=== PATIENT | male | born 1945 | race American Indian/Alaskan Native ===

== ENCOUNTER 2016-11-30 17:52 | Emergency (ER) | payer MEDICARE ==
[2016-11-30] MEDS ORDERED: NACL 0.9% 1000 ML 1,000 ML IV ONE (18:53)
[2016-11-30] MEDS ORDERED: TORADOL IV ONE (18:53)
[2016-11-30 19:58] LABS: Basophils % (Auto) 0.9 % (0.0-1.8); Eosinophils % (Auto) 0.7 % (0.0-4.3); Hematocrit 47.6 % (35.5-45.6); Hemoglobin 15.8 gm/dl (11.8-15.2); Mean Corpuscular HGB Conc 33 % (32-34); Mean Corpuscular Hemoglobin 29 pg (28-32); Mean Corpuscular Volume 87 fl (84-94); Platelet Count 256 K/mm3 (140-440); Red Blood Count 5.45 M/mm3 (3.65-5.03); White Blood Count 6.2 K/mm3 (4.5-11.0)
[2016-11-30 20:08] LABS: INR 1.07 (0.87-1.13)
[2016-11-30 20:09] LABS: Partial Thromboplastin Time 40.1 Sec. (24.2-36.6)
[2016-11-30 20:17] LABS: Creatine Kinase MB 1.3 ng/mL (0.0-4.0)
[2016-11-30 20:18] LABS: Alanine Aminotransferase 21 units/L (7-56); Albumin 2.4 g/dL (3.9-5); Albumin/Globulin Ratio 0.8 %; Alkaline Phosphatase 49 units/L (35-129); Anion Gap 15 mmol/L; BUN/Creatinine Ratio 16.66; Bilirubin,Total 0.3 mg/dL (0.1-1.2); Blood Urea Nitrogen 15 mg/dL (9-20); Calcium 8.7 mg/dL (8.4-10.2); Carbon Dioxide 28 mmol/L (22-30); Chloride 106.3 mmol/L (98-107); Creatine Kinase 49 units/L (55-170); Glucose 88 mg/dL (75-100); Lipase 32 units/L (13-60); Potassium 4.9 mmol/L (3.6-5.0); Sodium 144 mmol/L (137-145); Total Protein 5.3 g/dL (6.3-8.2)
--- NOTE | 2016-11-30 20:40 | Emergency Department Report ---
ED Chest Pain HPI - General Chief Complaint: Chest Pain Stated Complaint: CHEST PAIN Time Seen by Provider: 11/30/16 18:49 Source: patient Mode of arrival: Stretcher Limitations: No Limitations - History of Present Illness MD Complaint: chest pain, other (headache / abdominal pain) -: Gradual Onset: during rest Pain Location: substernal Pain Radiation: none Severity: moderate Severity scale (0 -10): 4 Quality: tightness, aching, heaviness Consistency: intermittent Improves With: nothing Worsens With: nothing Other Symptoms: denies: cough, fever, syncope, rash, acid taste in mouth, leg swelling, palpitations, burping Treatments Prior to Arrival: none - Related Data Home Medications Medication Instructions Recorded Confirmed Last Taken Carvedilol [Coreg] 6.25 mg PO BID 11/30/16 11/30/16 Unknown Previous Rx's Medication Instructions Recorded Last Taken Type Aspirin EC [Aspirin Enteric Coated 81 mg PO QDAY #30 tablet 07/18/16 Unknown Rx TAB] Pantoprazole [Protonix TAB] 20 mg PO QDAY #30 tablet. 07/18/16 Unknown Rx Amoxicillin/K Clav Tab [Augmentin 1 tab PO Q12HR #14 tab 08/05/16 Unknown Rx 875 mg] HYDROcodone/APAP 5-325 [[place] 1 each PO Q6HR PRN #20 tablet 08/05/16 Unknown Rx 5/325] Allergies Allergy/AdvReac Type Severity Reaction Status Date / Time No Known Allergies Allergy Verified 11/30/16 19:20 DEENA score - Deena Score Age > 65: (1) Yes Aspirin use within the Past 7 Days: (0) No 3 or more CAD Risk Factors: (0) No 2 or more Angina events in past 24 hrs: (0) No Known CAD with more than 50% Stenosis: (0) No Elevated Cardiac Markers: (0) No ST Deviation Greater than 0.5mm: (0) No DEENA Score: 1 ED Review of Systems ROS: Stated complaint: CHEST PAIN Other details as noted in HPI Constitutional: denies: chills, fever Eyes: denies: eye pain, eye discharge, vision change ENT: denies: ear pain, throat pain Respiratory: denies: cough, shortness of breath, wheezing Cardiovascular: denies: chest pain, palpitations Endocrine: no symptoms reported Gastrointestinal: denies: abdominal pain, nausea, diarrhea Genitourinary: denies: urgency, dysuria Musculoskeletal: denies: back pain, joint swelling, arthralgia Skin: denies: rash, lesions Neurological: denies: headache, weakness, paresthesias Psychiatric: denies: anxiety, depression Hematological/Lymphatic: denies: easy bleeding, easy bruising ED Past Medical Hx - Past Medical History Hx Hypertension: Yes Hx Diabetes: Yes Additional medical history: chronic back pain - Surgical History Additional Surgical History: back surgery - Social History Smoking Status: Never Smoker Substance Use Type: None - Medications Home Medications: Home Medications Medication Instructions Recorded Confirmed Last Taken Type Aspirin EC [Aspirin Enteric Coated 81 mg PO QDAY #30 tablet 07/18/16 11/30/16 Unknown Rx TAB] Pantoprazole [Protonix TAB] 20 mg PO QDAY #30 tablet. 07/18/16 11/30/16 Unknown Rx Amoxicillin/K Clav Tab [Augmentin 1 tab PO Q12HR #14 tab 08/05/16 11/30/16 Unknown Rx 875 mg] HYDROcodone/APAP 5-325 [[place] 1 each PO Q6HR PRN #20 tablet 08/05/16 11/30/16 Unknown Rx 5/325] Carvedilol [Coreg] 6.25 mg PO BID 11/30/16 11/30/16 Unknown History ED Physical Exam - General Limitations: No Limitations General appearance: alert, in no apparent distress - Head Head exam: Present: atraumatic, normocephalic - Eye Eye exam: Present: normal appearance - ENT ENT exam: Present: mucous membranes moist - Neck Neck exam: Present: normal inspection - Respiratory Respiratory exam: Present: normal lung sounds bilaterally. Absent: respiratory distress - Cardiovascular Cardiovascular Exam: Present: regular rate, normal rhythm. Absent: systolic murmur, diastolic murmur, rubs, gallop - GI/Abdominal GI/Abdominal exam: Present: soft, normal bowel sounds - Rectal Rectal exam: Present: deferred - Extremities Exam Extremities exam: Present: normal inspection - Back Exam Back exam: Present: normal inspection - Neurological Exam Neurological exam: Present: alert, oriented X3 - Psychiatric Psychiatric exam: Present: normal affect, normal mood - Skin Skin exam: Present: warm, dry, intact, normal color. Absent: rash ED Course Vital Signs 11/30/16 11/30/16 19:03 21:03 Pulse Rate 81 81 Respiratory 16 16 Rate Blood Pressure 143/91 Blood Pressure 152/81 [Right] O2 Sat by Pulse 97 99 Oximetry ED Medical Decision Making - Lab Data Result diagrams: 11/30/16 19:41 11/30/16 19:41 Critical care attestation.: If time is entered above; I have spent that time in minutes in the direct care of this critically ill patient, excluding procedure time. ED Disposition Clinical Impression: Chest pain, Hypertension Disposition: DISCHARGED TO HOME OR SELFCARE Is pt being admited?: No Does the pt Need Aspirin: No Condition: Good Instructions: Chest Pain (ED), Hypertension (ED), Costochondritis (ED) Referrals: PRIMARY CARE, [Primary Care Provider] - 3-5 Days Time of Disposition: 23:12
[2016-11-30 20:54] LABS: Creatine Kinase MB 1.2 ng/mL (0.0-4.0)
[2016-11-30 21:05] VITALS: BP 152/81
--- NOTE | 2016-11-30 21:50 | Cat Scan Report ---
FINAL REPORT PROCEDURE: CT ANGIO CHEST TECHNIQUE: Computerized axial tomographic angiography of the chest and pulmonary arteries was performed after the IV injection of iodinated nonionic contrast. The image data was postprocessed using maximum intensity projection (MIP) and 2-dimensional multiplanar reformatted (MPR) techniques. The examination is specifically tailored to the evaluation of the pulmonary arteries per clinical request. HISTORY: Chest pain. Attention for pulmonary embolus. Short of breath 786.09, chest pain 786.50 COMPARISON: There no prior CT scans of the chest to compare FINDINGS: Heart and pericardium: Normal. Thoracic aorta: Normal. Pulmonary vasculature: Normal. No pulmonary emboli. Lymph nodes: There are few nonspecific less than 1 centimeter mediastinal nodes. There is no evidence of enlarged thoracic lymph node.. Lungs: Lungs demonstrate mild atelectasis in the posterior lung bases. There are changes of mild COPD. There is no focal infiltrate or pulmonary edema. Pleural space: No effusion, thickening, or pneumothorax. Musculoskeletal structures: Mild bony degenerative change throughout the spine. There is mild tilt of the thoracic spine to the right. This could be due to patient positioning.. Upper abdominal structures: Limited visualized structures of the very upper abdomen seen on the lower part of this chest CT scan show no distinct abnormality. There is a tiny 2 millimeter nonspecific calcification in the right liver. This is likely incidental.. IMPRESSION: 1. There is no CT evidence of pulmonary embolus. 2. There is no CT evidence of thoracic aortic dissection. 3. Lungs show mild dependent atelectasis in the posterior lung bases. There are also changes of mild COPD. 4. Mild bony degenerative change.
--- NOTE | 2016-12-01 10:29 | XRay Report ---
AP CHEST : 11/30/16 17:52:00 CLINICAL: Chest pain COMPARISON:07/16/16 FINDINGS: Normal heart and pulmonary vessels. The lungs are mildly hyperexpanded and hyperlucent. No airspace disease or pleural effusion. Degenerative changes in the spine and shoulders. IMPRESSION: COPD and no acute change.
== END 2016-11-30 23:26 | disposition home or self-care (01) ==
LOC: ED 17:52
DX: R07.9 Chest pain, unspecified (principal); I10 Essential (primary) hypertension; E11.9 Type 2 diabetes mellitus without complications; G89.29 Other chronic pain; Z79.82 Long term (current) use of aspirin
CPT/HCPCS: 36415; 71010; 71275; 80053; 82550; 82553; 83690; 84484; 85025; 85610; 85730; 93005; 93010; 96361; 96374; 99285; J1885; J7030; Q9967

== ENCOUNTER 2017-03-20 10:53 | Emergency (ER) | payer MEDICARE ==
[2017-03-20 11:37] LABS: Basophils % (Auto) 0.3 % (0.0-1.8); Eosinophils % (Auto) 0.1 % (0.0-4.3); Hematocrit 46.8 % (35.5-45.6); Hemoglobin 15.5 gm/dl (11.8-15.2); Mean Corpuscular HGB Conc 33 % (32-34); Mean Corpuscular Hemoglobin 29 pg (28-32); Mean Corpuscular Volume 87 fl (84-94); Platelet Count 288 K/mm3 (140-440); Red Blood Count 5.35 M/mm3 (3.65-5.03); Red Cell Distribution Width 14.5 % (13.2-15.2); White Blood Count 9.3 K/mm3 (4.5-11.0)
[2017-03-20 11:48] LABS: INR 1.1 (0.87-1.13)
[2017-03-20 11:54] LABS: Anion Gap 14 mmol/L; BUN/Creatinine Ratio 14.28; Blood Urea Nitrogen 10 mg/dL (9-20); Calcium 9.2 mg/dL (8.4-10.2); Carbon Dioxide 30 mmol/L (22-30); Chloride 98.9 mmol/L (98-107); Glucose 113 mg/dL (75-100); Potassium 3.8 mmol/L (3.6-5.0); Sodium 139 mmol/L (137-145)
--- NOTE | 2017-03-20 14:18 | XRay Report ---
CHEST XRAY, 2 VIEWS: History: Chest pain. Findings: There is mild diffuse interstitial coarsening. The lungs are hyperexpanded but clear. No infiltrate, pleural fluid or pneumothorax is detected. The cardiac silhouette and pulmonary vasculature are within normal limits for technique. The bony thorax is unremarkable. IMPRESSION: Changes consistent with mild COPD. No acute cardiopulmonary process.
[2017-03-20] MEDS ORDERED: NORCO 5/325 PO ONE (16:03)
[2017-03-20 16:11] VITALS: BP 163/89
--- NOTE | 2017-03-20 16:19 | Emergency Department Report ---
ED General Adult HPI - General Chief complaint: Neck Pain/Injury Stated complaint: neck pain Time Seen by Provider: 03/20/17 16:02 Source: patient Mode of arrival: Ambulatory Limitations: No Limitations - History of Present Illness Initial comments: Patient is a 16-year-old male past medical history of high blood pressure who presents with left-sided neck pain that occurred this morning. Patient states that this pain occurred while he was getting out from that the pain is a 5 out 10 to sore type pain turning his neck makes the pain worse and nothing makes the pain better. The pain does not radiate and is not associated with any symptoms. Patient has no chest pain he says he has some pain at the base of his neck "close to my chest and everone is telling me I have chest pain but I have never had chest pain." Patient denies having any nausea or vomiting. He states that he's never been diagnosed a heart attack or stroke. Severity scale (0 -10): 7 - Related Data Home Medications Medication Instructions Recorded Confirmed Last Taken Carvedilol [Coreg] 6.25 mg PO BID 11/30/16 11/30/16 Unknown Previous Rx's Medication Instructions Recorded Last Taken Type Aspirin EC [Aspirin Enteric Coated 81 mg PO QDAY #30 tablet 07/18/16 Unknown Rx TAB] Pantoprazole [Protonix TAB] 20 mg PO QDAY #30 tablet. 07/18/16 Unknown Rx Amoxicillin/K Clav Tab [Augmentin 1 tab PO Q12HR #14 tab 08/05/16 Unknown Rx 875 mg] HYDROcodone/APAP 5-325 [[place] 1 each PO Q6HR PRN #20 tablet 08/05/16 Unknown Rx 5/325] Acetaminophen [Acetaminophen TAB] 500 mg PO Q6HR #30 tablet 03/20/17 Unknown Rx methOCARBAMOL [Robaxin TAB] 500 mg PO Q6H PRN #30 tablet 03/20/17 Unknown Rx Allergies Allergy/AdvReac Type Severity Reaction Status Date / Time No Known Allergies Allergy Verified 03/20/17 11:19 ED Review of Systems ROS: Stated complaint: CHEST PAIN Other details as noted in HPI Constitutional: denies: chills, fever Eyes: denies: eye pain, eye discharge, vision change ENT: denies: ear pain, throat pain Respiratory: denies: cough, shortness of breath, wheezing Cardiovascular: denies: chest pain, palpitations Endocrine: no symptoms reported Gastrointestinal: denies: abdominal pain, nausea, diarrhea Genitourinary: denies: urgency, dysuria Musculoskeletal: other (neck pain) Skin: denies: rash, lesions Neurological: denies: headache, weakness, paresthesias Psychiatric: denies: anxiety, depression Hematological/Lymphatic: denies: easy bleeding, easy bruising ED Past Medical Hx - Past Medical History Hx Hypertension: Yes Hx Diabetes: Yes Hx GERD: Yes Additional medical history: chronic back pain - Surgical History Additional Surgical History: back surgery. NECK SURGERY - Social History Smoking Status: Light Tobacco Smoker Substance Use Type: Alcohol, Marijuana - Medications Home Medications: Home Medications Medication Instructions Recorded Confirmed Last Taken Type Aspirin EC [Aspirin Enteric Coated 81 mg PO QDAY #30 tablet 07/18/16 11/30/16 Unknown Rx TAB] Pantoprazole [Protonix TAB] 20 mg PO QDAY #30 tablet. 07/18/16 11/30/16 Unknown Rx Amoxicillin/K Clav Tab [Augmentin 1 tab PO Q12HR #14 tab 08/05/16 11/30/16 Unknown Rx 875 mg] HYDROcodone/APAP 5-325 [[place] 1 each PO Q6HR PRN #20 tablet 08/05/16 11/30/16 Unknown Rx 5/325] Carvedilol [Coreg] 6.25 mg PO BID 11/30/16 11/30/16 Unknown History Acetaminophen [Acetaminophen TAB] 500 mg PO Q6HR #30 tablet 03/20/17 Unknown Rx methOCARBAMOL [Robaxin TAB] 500 mg PO Q6H PRN #30 tablet 03/20/17 Unknown Rx ED Physical Exam - General Limitations: No Limitations General appearance: alert - Head Head exam: Present: atraumatic, normocephalic - Eye Eye exam: Present: normal appearance - ENT ENT exam: Present: mucous membranes moist - Neck Neck exam: Present: other (paraspinal tenderness no midline tenderness patient has Full ROM of his neck. ) - Respiratory Respiratory exam: Present: normal lung sounds bilaterally. Absent: respiratory distress - Cardiovascular Cardiovascular Exam: Present: regular rate - GI/Abdominal GI/Abdominal exam: Present: soft, normal bowel sounds - Rectal Rectal exam: Present: deferred - Extremities Exam Extremities exam: Present: normal inspection - Back Exam Back exam: Present: normal inspection - Neurological Exam Neurological exam: Present: alert, oriented X3 - Psychiatric Psychiatric exam: Present: normal affect, normal mood - Skin Skin exam: Present: warm, dry, intact, normal color. Absent: rash ED Course Vital Signs 03/20/17 03/20/17 11:10 15:54 Temperature 97.8 F 98.7 F Pulse Rate 71 70 Respiratory 20 18 Rate Blood Pressure 157/97 Blood Pressure 163/89 [Left] O2 Sat by Pulse 97 98 Oximetry - Reevaluation(s) Reevaluation #1: 03/20/17 16:21 Patient states he is feeling good and tonight he wants to go home. He has no chest pain discussed the patient about return precautions to the ED. ED Medical Decision Making - Lab Data Result diagrams: 03/20/17 11:25 03/20/17 11:25 Laboratory Results - last 24 hr 03/20/17 03/20/17 03/20/17 11:25 11:25 11:25 WBC 9.3 RBC 5.35 H Hgb 15.5 H Hct 46.8 H MCV 87 MCH 29 MCHC 33 RDW 14.5 Plt Count 288 Lymph % (Auto) 13.0 L [place] % (Auto) 10.3 H Eos % (Auto) 0.1 Baso % (Auto) 0.3 Lymph # 1.2 [place] # 1.0 H Eos # 0.0 Baso # 0.0 Seg Neutrophils % 76.3 H Seg Neutrophils # 7.1 PT 14.1 INR 1.10 Sodium 139 Potassium 3.8 Chloride 98.9 Carbon Dioxide 30 Anion Gap 14 BUN 10 Creatinine 0.7 L Estimated GFR > 60 BUN/Creatinine Ratio 14.28 Glucose 113 H Calcium 9.2 Troponin T < 0.010 - EKG Data -: EKG Interpreted by Me - EKG Data 03/20/17 16:21 EKG shows normal sinus rhythm possible left atrial enlargement present no ST segment elevations noted T-wave inversions. - Radiology Data Radiology results: image reviewed Chest x-ray shows no acute pulmonary disease. - Medical Decision Making Chief medical diagnosis: Torticollis Differential medical diagnosis: Cervical sprain, cervical strain, pulled chest wall muscle. We'll get labs as baseline, EKG, chest x-ray analgesic medication and will send patient home. 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 Critical care attestation.: If time is entered above; I have spent that time in minutes in the direct care of this critically ill patient, excluding procedure time. ED Disposition Clinical Impression: Cervicalgia Disposition: TO HOME OR SELFCARE Is pt being admited?: No Does the pt Need Aspirin: No Condition: Stable Instructions: Cervical Sprain (ED) Prescriptions: Acetaminophen [Acetaminophen TAB] 500 mg PO Q6HR #30 tablet methOCARBAMOL [Robaxin TAB] 500 mg PO Q6H PRN #30 tablet PRN Reason: Spasms Referrals: PRIMARY CARE, [Primary Care Provider] - 3-5 Days Time of Disposition: 16:26
== END 2017-03-20 16:37 | disposition home or self-care (01) ==
LOC: ED 10:53
DX: M54.2 Cervicalgia (principal); E11.9 Type 2 diabetes mellitus without complications; K21.9 Gastro-esophageal reflux disease without esophagitis; I10 Essential (primary) hypertension; G89.29 Other chronic pain; F17.200 Nicotine dependence, unspecified, uncomplicated; F12.10 Cannabis abuse, uncomplicated; Z79.82 Long term (current) use of aspirin; X50.1XXA Overexertion from prolonged static or awkward postures, initial encounter; Y93.89 Activity, other specified; Y99.8 Other external cause status; Y92.89 Other specified places as the place of occurrence of the external cause
CPT/HCPCS: 36415; 71020; 80048; 84484; 85025; 85610; 93005; 93010

== ENCOUNTER 2019-01-07 12:45 | Emergency (ER) | payer MEDICARE ==
--- NOTE | 2019-01-07 12:53 | Emergency Department Report ---
Blank Doc - Documentation Documentation: This is a 73-year-old male that presents right sided paraspinal cervical pain with radiation to right arm. Denies any injuries or trauma. This initial assessment/diagnostic orders/clinical plan/treatment(s) is/are subject to change based on patient's health status, clinical progression and re- assessment by fellow clinical providers in the ED. Further treatment and workup at subsequent clinical providers discretion. Patient/guardians urged not to elope from the ED as their condition may be serious if not clinically assessed and managed. Initial orders include: 1- Patient sent to [facility] for further evaluation and treatment
[2019-01-07 12:57] VITALS: BP 160/78
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
--- NOTE | 2019-01-07 15:32 | XRay Report ---
PROCEDURE: XR SHOULDER 2+V RT HISTORY: fall, pain FINDINGS:. AP views of the right shoulder were acquired in internal and external rotation as well as scapular Y view. No fracture is seen in the right shoulder. There is advanced glenohumeral osteoarthritis. There is sp urring inferior to the lateral clavicle 0.4 cm. IMPRESSION: No fracture is seen in the right shoulder This document is electronically signed by Dwaine Mcbride MD., Jan 07 2019 03:30:20 PM ET
--- NOTE | 2019-01-07 15:33 | XRay Report ---
PROCEDURE: XR SPINE CERVICAL 2-3V HISTORY: fall,NECK PAIN FINDINGS: AP, lateral and open-mouth views of the cervical spine were acquired. No fracture is seen i n the cervical spine. There is anterior endplate remodeling at C3 C4, C4 C5, C6 C7 and C7-T1. The pre vertebral soft tissues are within normal limits. IMPRESSION: No fracture is seen in the cervical spine This document is electronically signed by Dwaine Mcbride MD., Jan 07 2019 03:31:18 PM ET
--- NOTE | 2019-01-07 15:43 | Emergency Department Report ---
ED Fall HPI - General Chief Complaint: Neck Pain/Injury Stated Complaint: FALL/R ARM PAIN Time Seen by Provider: 01/07/19 12:52 Source: patient Mode of arrival: Wheelchair - History of Present Illness Initial Comments: 73 yo M reports trip and fall from standing 2 days ago. Denies LOC. Began having pain to right neck, right shoulder, right chest wall on yesterday. Denies SOB Complaint: fall -: days(s) (2) Fall From: standing When Fall Occurred: # days [employer] (2) Place Fall Occurred: home Loss of Consciousness: none Prolonged Down Time?: no Symptoms Prior to Fall: none Location: neck, chest Location - Extremities: Right: Shoulder Severity: moderate Associated Symptoms: neck pain. denies: numbness, weakness, shortness of breath - Related Data Home Medications Medication Instructions Recorded Confirmed Last Taken Carvedilol [Coreg] 6.25 mg PO BID 11/30/16 11/30/16 Unknown Previous Rx's Medication Instructions Recorded Last Taken Type Aspirin EC 81 mg PO QDAY #30 tablet 07/18/16 Unknown Rx Pantoprazole [Protonix TAB] 20 mg PO QDAY #30 tablet.dr 07/18/16 Unknown Rx Amoxicillin/K Clav Tab [Augmentin 1 tab PO Q12HR #14 tab 08/05/16 Unknown Rx 875 mg] HYDROcodone/APAP 5-325 [[place] 1 each PO Q6HR PRN #20 tablet 08/05/16 Unknown Rx 5/325] Acetaminophen [Acetaminophen TAB] 500 mg PO Q6HR #30 tablet 03/20/17 Unknown Rx methOCARBAMOL [Robaxin TAB] 500 mg PO Q6H PRN #30 tablet 03/20/17 Unknown Rx methOCARBAMOL [Robaxin TAB] 500 mg PO Q8HR PRN #20 tablet 01/07/19 Unknown Rx Allergies Allergy/AdvReac Type Severity Reaction Status Date / Time No Known Allergies Allergy Verified 01/07/19 12:49 ED Review of Systems ROS: Stated complaint: FALL/R ARM PAIN Other details as noted in HPI Comment: All other systems reviewed and negative Respiratory: denies: shortness of breath Gastrointestinal: denies: nausea, vomiting Musculoskeletal: as per HPI Neurological: denies: headache ED Past Medical Hx - Past Medical History Hx Hypertension: Yes Hx Diabetes: Yes Hx GERD: Yes Additional medical history: chronic back pain - Surgical History Additional Surgical History: back surgery. NECK SURGERY - Social History Smoking Status: Current Every Day Smoker Substance Use Type: None - Medications Home Medications: Home Medications Medication Instructions Recorded Confirmed Last Taken Type Aspirin EC 81 mg PO QDAY #30 tablet 07/18/16 11/30/16 Unknown Rx Pantoprazole [Protonix TAB] 20 mg PO QDAY #30 tablet. 07/18/16 11/30/16 Unknown Rx Amoxicillin/K Clav Tab [Augmentin 1 tab PO Q12HR #14 tab 08/05/16 11/30/16 Unknown Rx 875 mg] HYDROcodone/APAP 5-325 [[place] 1 each PO Q6HR PRN #20 tablet 08/05/16 11/30/16 Unknown Rx 5/325] Carvedilol [Coreg] 6.25 mg PO BID 11/30/16 11/30/16 Unknown History Acetaminophen [Acetaminophen TAB] 500 mg PO Q6HR #30 tablet 03/20/17 Unknown Rx methOCARBAMOL [Robaxin TAB] 500 mg PO Q6H PRN #30 tablet 03/20/17 Unknown Rx methOCARBAMOL [Robaxin TAB] 500 mg PO Q8HR PRN #20 tablet 01/07/19 Unknown Rx ED Physical Exam - General Limitations: No Limitations General appearance: alert, in no apparent distress - Head Head exam: Present: atraumatic, normocephalic - Eye Eye exam: Present: normal appearance - ENT ENT exam: Present: mucous membranes moist - Neck Neck exam: Present: tenderness (right lateral) - Respiratory Respiratory exam: Present: normal lung sounds bilaterally. Absent: respiratory distress - Cardiovascular Cardiovascular Exam: Present: regular rate, normal rhythm - GI/Abdominal GI/Abdominal exam: Absent: distended - Extremities Exam Extremities exam: Present: other (tenderness, decreased ROM to right shoulder, no deformity noted) - Neurological Exam Neurological exam: Present: alert, oriented X3. Absent: motor sensory deficit - Psychiatric Psychiatric exam: Present: normal affect, normal mood - Skin Skin exam: Present: warm, dry, intact, normal color ED Course Vital Signs 01/07/19 12:55 Temperature 98.5 F Pulse Rate 79 Respiratory 16 Rate Blood Pressure 160/78 [Left] O2 Sat by Pulse 99 Oximetry ED Medical Decision Making - Radiology Data Radiology results: report reviewed, image reviewed - Differential Diagnosis fracture, sprain Critical care attestation.: If time is entered above; I have spent that time in minutes in the direct care of this critically ill patient, excluding procedure time. ED Disposition Clinical Impression: Fall, Acute cervical myofascial strain, Contusion, chest wall, Sprain of shoulder, right Disposition: TO HOME OR SELFCARE Is pt being admited?: No Condition: Stable Instructions: Muscle Strain (ED) Prescriptions: methOCARBAMOL [Robaxin TAB] 500 mg PO Q8HR PRN #20 tablet PRN Reason: Muscle Spasm Referrals: [facility] [Other] - 3-5 Days Time of Disposition: 15:42
[2019-01-07] MEDS ORDERED: ULTRAM ONE (15:56)
[2019-01-07] MEDS ORDERED: ULTRAM PO ONE (15:58)
== END 2019-01-07 16:00 | disposition home or self-care (01) ==
LOC: ED 12:45
DX: S16.1XXA Strain of muscle, fascia and tendon at neck level, initial encounter (principal); S43.401A Unspecified sprain of right shoulder joint, initial encounter; S20.211A Contusion of right front wall of thorax, initial encounter; I10 Essential (primary) hypertension; E11.9 Type 2 diabetes mellitus without complications; K21.9 Gastro-esophageal reflux disease without esophagitis; G89.29 Other chronic pain; M54.9 Dorsalgia, unspecified; F17.200 Nicotine dependence, unspecified, uncomplicated; Z79.82 Long term (current) use of aspirin; W01.0XXA Fall on same level from slipping, tripping and stumbling without subsequent striking against object, initial encounter; Y93.89 Activity, other specified; Y92.89 Other specified places as the place of occurrence of the external cause; Y99.8 Other external cause status
CPT/HCPCS: 71046; 72040; 99283

== ENCOUNTER 2019-05-17 00:40 | Emergency (ER) | payer MEDICAID, MEDICARE ==
[2019-05-17] MEDS ORDERED: FAMOTIDINE 20 MG/2 ML INJ IV ONE (00:56)
[2019-05-17] MEDS ORDERED: ACETAMINOPHEN 500 MG TAB PO ONE (00:56)
--- NOTE | 2019-05-17 00:57 | Event Note ---
Date: 05/17/19 Medical screening examination: 73-year-old gentleman, presents to the ER with left-sided chest wall pain for 6 days. No endorsement of additional complaints. Patient will be ordered for the ED chest pain protocol.
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
[2019-05-17 01:39] LABS: Basophils # (Auto) 0.1 K/mm3 (0.0-0.1); Basophils % (Auto) 1.2 % (0.0-1.8); Eosinophils % (Auto) 0.7 % (0.0-4.3); Hematocrit 34.6 % (35.5-45.6); Hemoglobin 11.6 gm/dl (11.8-15.2); Lymphocytes # (Auto) 1.1 K/mm3 (1.2-5.4); Lymphocytes % (Auto) 22.4 % (13.4-35.0); Mean Corpuscular HGB Conc 34 % (32-34); Mean Corpuscular Volume 86 fl (84-94); Monocytes # (Auto) 0.5 K/mm3 (0.0-0.8); Monocytes % (Auto) 10.2 % (0.0-7.3); Platelet Count 265 K/mm3 (140-440); Red Blood Count 4.03 M/mm3 (3.65-5.03); Red Cell Distribution Width 15.2 % (13.2-15.2)
[2019-05-17 01:52] LABS: INR 1.24 (0.87-1.13)
[2019-05-17 01:53] LABS: Partial Thromboplastin Time 39.8 Sec. (24.2-36.6)
[2019-05-17 01:59] LABS: BUN/Creatinine Ratio 15; Blood Urea Nitrogen 12 mg/dL (9-20); Calcium 9.3 mg/dL (8.4-10.2); Hemolysis Index 2
[2019-05-17] MEDS ORDERED: fentaNYL 100 MCG/2 ML INJ IV ONE (02:12)
[2019-05-17] MEDS ORDERED: ONDANSETRON 4 MG/2 ML INJ IV ONE (02:12)
[2019-05-17] MEDS ORDERED: KETOROLAC 30 MG/1 ML INJ IV ONE (02:12)
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
[2019-05-17 06:08] VITALS: BP 147/89
== END 2019-05-17 06:43 | disposition home or self-care (01) ==
LOC: ED 00:40
DX: M25.512 Pain in left shoulder (principal); I10 Essential (primary) hypertension; E11.9 Type 2 diabetes mellitus without complications; K21.9 Gastro-esophageal reflux disease without esophagitis; F17.200 Nicotine dependence, unspecified, uncomplicated; Z79.899 Other long term (current) drug therapy; Z98.890 Other specified postprocedural states
CPT/HCPCS: 36415; 71045; 73030; 80048; 84484; 85025; 85610; 85730; 93005; 93010; 96374; 96375; 99285; J1885; J2405; J3010

== ENCOUNTER 2019-09-02 07:10 | Emergency (ER) | payer MEDICARE ==
[2019-09-02 07:17] VITALS: BP 175/86
[2019-09-02] MEDS ORDERED: traMADol 50 MG TAB PO ONE (09:22)
--- NOTE | 2019-09-02 09:39 | Emergency Department Report ---
ED General Adult HPI - General Chief complaint: Fall Stated complaint: CHEST PAIN Time Seen by Provider: 09/02/19 09:17 Source: patient Mode of arrival: Ambulatory Limitations: No Limitations - History of Present Illness Initial comments: Patient is a 73-year-old -[place] male who suffered a fall in his bathroom approximately a week ago. Patient states that when he fell he didn't strike his left side of his chest. Patient has had progressively worsening pain that she states is 8 out of 10 in severity. His aching throbbing pain that is constant with occasional sharp pain. Patient states he has a difficult time raising his left arm secondary to pain in the left chest. Is a mild shortness of breath but denies cough or fever. - Related Data Home Medications Medication Instructions Recorded Confirmed Last Taken carvediloL [Coreg] 6.25 mg PO BID 11/30/16 11/30/16 Unknown Previous Rx's Medication Instructions Recorded Last Taken Type Aspirin EC 81 mg PO QDAY #30 tablet 07/18/16 Unknown Rx Pantoprazole [Protonix TAB] 20 mg PO QDAY #30 tablet. 07/18/16 Unknown Rx Amoxicillin/K Clav Tab [Augmentin 1 tab PO Q12HR #14 tab 08/05/16 Unknown Rx 875 mg] HYDROcodone/APAP 5-325 [[place] 1 each PO Q6HR PRN #20 tablet 08/05/16 Unknown Rx 5/325] Acetaminophen [Acetaminophen TAB] 500 mg PO Q6HR #30 tablet 03/20/17 Unknown Rx methOCARBAMOL [Robaxin TAB] 500 mg PO Q6H PRN #30 tablet 03/20/17 Unknown Rx methOCARBAMOL [Robaxin TAB] 500 mg PO Q8HR PRN #20 tablet 01/07/19 Unknown Rx HYDROcodone/APAP 5-325 [[place] 1 - 2 each PO Q6HR PRN #14 tablet 05/17/19 Unknown Rx 5/325] Ibuprofen [Motrin 800 MG tab] 800 mg PO Q8HR PRN #20 tablet 05/17/19 Unknown Rx HYDROcodone/APAP 5-325 [[place] 1 each PO Q6HR PRN #14 tablet 09/02/19 Unknown Rx 5/325] Ibuprofen [Motrin 600 MG tab] 600 mg PO Q8H PRN #20 tablet 09/02/19 Unknown Rx Allergies Allergy/AdvReac Type Severity Reaction Status Date / Time No Known Allergies Allergy Verified 01/07/19 12:49 ED Review of Systems ROS: Stated complaint: CHEST PAIN Other details as noted in HPI Comment: All other systems reviewed and negative ED Past Medical Hx - Past Medical History Hx Hypertension: Yes Hx Diabetes: Yes Hx GERD: Yes Additional medical history: chronic back pain - Surgical History Additional Surgical History: back surgery. NECK SURGERY - Social History Smoking Status: Current Some Day Smoker (cigars) Substance Use Type: None (denies illicit drug use), Alcohol (occasional) - Medications Home Medications: Home Medications Medication Instructions Recorded Confirmed Last Taken Type Aspirin EC 81 mg PO QDAY #30 tablet 07/18/16 11/30/16 Unknown Rx Pantoprazole [Protonix TAB] 20 mg PO QDAY #30 tablet. 07/18/16 11/30/16 Unknown Rx Amoxicillin/K Clav Tab [Augmentin 1 tab PO Q12HR #14 tab 08/05/16 11/30/16 Unknown Rx 875 mg] HYDROcodone/APAP 5-325 [[place] 1 each PO Q6HR PRN #20 tablet 08/05/16 11/30/16 Unknown Rx 5/325] carvediloL [Coreg] 6.25 mg PO BID 11/30/16 11/30/16 Unknown History Acetaminophen [Acetaminophen TAB] 500 mg PO Q6HR #30 tablet 03/20/17 Unknown Rx methOCARBAMOL [Robaxin TAB] 500 mg PO Q6H PRN #30 tablet 03/20/17 Unknown Rx methOCARBAMOL [Robaxin TAB] 500 mg PO Q8HR PRN #20 tablet 01/07/19 Unknown Rx HYDROcodone/APAP 5-325 [[place] 1 - 2 each PO Q6HR PRN #14 tablet 05/17/19 Unknown Rx 5/325] Ibuprofen [Motrin 800 MG tab] 800 mg PO Q8HR PRN #20 tablet 05/17/19 Unknown Rx HYDROcodone/APAP 5-325 [[place] 1 each PO Q6HR PRN #14 tablet 09/02/19 Unknown Rx 5/325] Ibuprofen [Motrin 600 MG tab] 600 mg PO Q8H PRN #20 tablet 09/02/19 Unknown Rx ED Physical Exam - General Limitations: No Limitations General appearance: alert, in no apparent distress - Head Head exam: Present: atraumatic, normocephalic - Eye Eye exam: Present: normal appearance, PERRL, EOMI - ENT ENT exam: Present: mucous membranes moist - Neck Neck exam: Present: normal inspection - Respiratory Respiratory exam: Present: normal lung sounds bilaterally, chest wall tenderness (left chest at level of the anterior/lateral lower ribs). Absent: respiratory distress, wheezes, rales, rhonchi - Cardiovascular Cardiovascular Exam: Present: regular rate, normal rhythm, normal heart sounds. Absent: systolic murmur, diastolic murmur, rubs, gallop - GI/Abdominal GI/Abdominal exam: Present: soft, normal bowel sounds. Absent: distended, tenderness, guarding, rebound - Rectal Rectal exam: Present: deferred - Extremities Exam Extremities exam: Present: normal inspection - Back Exam Back exam: Present: normal inspection - Neurological Exam Neurological exam: Present: alert, oriented X3 - Psychiatric Psychiatric exam: Present: normal affect, normal mood - Skin Skin exam: Present: warm, dry, intact, normal color. Absent: rash ED Course Vital Signs 09/02/19 09/02/19 07:15 09:40 Temperature 98.8 F Pulse Rate 75 Respiratory 16 20 Rate Blood Pressure 175/86 O2 Sat by Pulse 95 Oximetry ED Medical Decision Making - EKG Data -: EKG Interpreted by Me EKG shows normal: sinus rhythm, axis, intervals, QRS complexes, ST-T waves Rate: normal - EKG Data Interpretation: normal EKG - Radiology Data Radiology results: image reviewed (patient's left ninth rib shows irregularity to the cortex of the distal rib. Patient is tender in this area and patient likely has a subacute fracture tenderness area.) - Medical Decision Making Patient is a 73-year-old -[place] male who is presenting with pain in his left side after fall. Per my interpretation of the x-ray there is an acute/subacute fracture present. Patient be given medication for symptom control as well as incentive spirometer. Critical care attestation.: If time is entered above; I have spent that time in minutes in the direct care of this critically ill patient, excluding procedure time. ED Disposition Clinical Impression: Rib fracture Qualifiers: Encounter type: initial encounter Rib fracture type: single rib Fracture type: closed Laterality: left Qualified Code(s): S22.32XA - Fracture of one rib, left side, initial encounter for closed fracture Disposition: DC-01 TO HOME OR SELFCARE Is pt being admited?: No Does the pt Need Aspirin: No Condition: Stable Instructions: Rib Fracture (ED) Referrals: PRIMARY CARE, [Primary Care Provider] - 3-5 Days Time of Disposition: 10:51
--- NOTE | 2019-09-02 09:48 | XRay Report ---
Left rib series 3 views Indication: pain after fall Findings: There is no fracture or other acute radiographic abnormality of the left ribs. No pneumothorax is see n. The lungs appear clear. Signer Name: Don Collado MD Signed: 09/02/2019 9:44 AM Workstation Name: [id number]
== END 2019-09-02 11:41 | disposition home or self-care (01) ==
LOC: ED 07:10
DX: S22.32XA Fracture of one rib, left side, initial encounter for closed fracture (principal); I10 Essential (primary) hypertension; E11.9 Type 2 diabetes mellitus without complications; K21.9 Gastro-esophageal reflux disease without esophagitis; F17.200 Nicotine dependence, unspecified, uncomplicated; Z98.890 Other specified postprocedural states; Z79.899 Other long term (current) drug therapy; X58.XXXA Exposure to other specified factors, initial encounter; Y93.89 Activity, other specified; Y92.89 Other specified places as the place of occurrence of the external cause; Y99.8 Other external cause status
CPT/HCPCS: 93005; 93010

== ENCOUNTER 2019-11-07 14:19 | Emergency (ER) | payer MEDICARE ==
--- NOTE | 2019-11-07 14:35 | Event Note ---
ED Screening Note Date of service: 11/07/19 Time: 14:32 ED Screening Note: 73 y/o male comes in for decrease appetite weigh loss feeling malaise times 1 month. This initial assessment/diagnostic orders/clinical plan/treatment(s) is/are subject to change based on patients health status, clinical progression and re- assessment by fellow clinical providers in the ED. Further treatment and workup at subsequent clinical providers discretion. Patient/guardian urged not to elope from the ED as their condition may be serious if not clinically assessed and managed. Initial orders include:
--- NOTE | 2019-11-07 15:02 | XRay Report ---
CHEST 1 VIEW INDICATION / CLINICAL INFORMATION: weight loss. FINDINGS: Comparison is made to a chest radiograph dated 09/02/2019. The lungs are hyperinflated with flattening of the diaphragm, sparse vascular markings, and increased rib spacing. No acute airspace opacity, pl eural fluid or pneumothorax. Unchanged cardiac mediastinal silhouette with normal heart size. Multile talia degenerative changes in the thoracic spine. No acute skeletal abnormality. IMPRESSION: Emphysematous changes without acute cardiopulmonary abnormality or significant change. Signer Name: J Luis Henson MD Signed: 11/07/2019 2:57 PM Workstation Name: [id number]
[2019-11-07 16:22] LABS: Basophils % (Auto) 0.9 % (0.0-1.8); Hematocrit 40.4 % (35.5-45.6); Hemoglobin 13.4 gm/dl (11.8-15.2); Lymphocytes # (Auto) 1.1 K/mm3 (1.2-5.4); Mean Corpuscular HGB Conc 33 % (32-34); Mean Corpuscular Volume 86 fl (84-94); Monocytes # (Auto) 0.4 K/mm3 (0.0-0.8); Monocytes % (Auto) 8.9 % (0.0-7.3); Platelet Count 293 K/mm3 (140-440); Red Blood Count 4.71 M/mm3 (3.65-5.03); Red Cell Distribution Width 15.8 % (13.2-15.2)
[2019-11-07 16:50] LABS: Alanine Aminotransferase 15 units/L (7-56); Albumin 4.1 g/dL (3.9-5); BUN/Creatinine Ratio 14; Blood Urea Nitrogen 13 mg/dL (9-20); Calcium 9.7 mg/dL (8.4-10.2); Hemolysis Index 1
[2019-11-07] MEDS ORDERED: LISINOPRIL 20 MG TAB PO ONE (18:06)
--- NOTE | 2019-11-07 18:10 | Emergency Department Report ---
ED General Adult HPI - General Chief complaint: Abdominal Pain Stated complaint: THROWING UP 3 WEEKS Time Seen by Provider: 11/07/19 14:31 Source: patient Mode of arrival: Ambulatory Limitations: No Limitations - History of Present Illness Initial comments: Mr. Pascual is a 73-year-old male with history of hypertension GERD diabetes mellitus degenerative disc disease of the spine and neck and back who presents with 1 month of generalized malaise, poor appetite. He also has chronic neck and back pain. He has nondescript stomach discomfort. He states that he has lost so much weight that he is scared. Does not have a primary care physician. He has not been compliant with his medication for blood pressure. The only blood pressure medicine he can recall his lisinopril. "I just do not feel good" -: Gradual, month(s) (1) Severity scale (0 -10): 0 Consistency: constant Improves with: none Worsens with: none Associated Symptoms: other (Generalized malaise weight loss) - Related Data Home Medications Medication Instructions Recorded Confirmed Last Taken carvediloL [Coreg] 6.25 mg PO BID 11/30/16 11/30/16 Unknown Previous Rx's Medication Instructions Recorded Last Taken Type Aspirin EC [Ecotrin] 81 mg PO QDAY #30 tablet 07/18/16 Unknown Rx Pantoprazole [Protonix TAB] 20 mg PO QDAY #30 tablet. 07/18/16 Unknown Rx Amoxicillin/K Clav Tab [Augmentin 1 tab PO Q12HR #14 tab 08/05/16 Unknown Rx 875 mg] HYDROcodone/APAP 5-325 [[place] 1 each PO Q6HR PRN #20 tablet 08/05/16 Unknown Rx 5/325] Acetaminophen [Acetaminophen TAB] 500 mg PO Q6HR #30 tablet 03/20/17 Unknown Rx methOCARBAMOL [Robaxin TAB] 500 mg PO Q6H PRN #30 tablet 03/20/17 Unknown Rx methOCARBAMOL [Robaxin TAB] 500 mg PO Q8HR PRN #20 tablet 01/07/19 Unknown Rx HYDROcodone/APAP 5-325 [[place] 1 - 2 each PO Q6HR PRN #14 tablet 05/17/19 Unknown Rx 5/325] Ibuprofen [Motrin 800 MG tab] 800 mg PO Q8HR PRN #20 tablet 05/17/19 Unknown Rx HYDROcodone/APAP 5-325 [[place] 1 each PO Q6HR PRN #14 tablet 09/02/19 Unknown Rx 5/325] Ibuprofen [Motrin 600 MG tab] 600 mg PO Q8H PRN #20 tablet 09/02/19 Unknown Rx HYDROcodone/APAP 5-325 [[place] 1 each PO Q6HR PRN #10 tablet 11/07/19 Unknown Rx 5/325] lisinopriL [Zestril TAB] 40 mg PO QDAY #30 tablet 11/07/19 Unknown Rx Allergies Allergy/AdvReac Type Severity Reaction Status Date / Time No Known Allergies Allergy Verified 01/07/19 12:49 ED Review of Systems ROS: Stated complaint: THROWING UP 3 WEEKS Other details as noted in HPI Comment: All other systems reviewed and negative Constitutional: malaise Cardiovascular: denies: chest pain Gastrointestinal: abdominal pain Musculoskeletal: back pain ED Past Medical Hx - Past Medical History Previous Medical History?: Yes Hx Hypertension: Yes Hx Diabetes: Yes Hx GERD: Yes Additional medical history: chronic back pain - Surgical History Past Surgical History?: Yes Additional Surgical History: back surgery. NECK SURGERY - Social History Smoking Status: Never Smoker Substance Use Type: None - Medications Home Medications: Home Medications Medication Instructions Recorded Confirmed Last Taken Type Aspirin EC [Ecotrin] 81 mg PO QDAY #30 tablet 07/18/16 11/30/16 Unknown Rx Pantoprazole [Protonix TAB] 20 mg PO QDAY #30 tablet. 07/18/16 11/30/16 Unknown Rx Amoxicillin/K Clav Tab [Augmentin 1 tab PO Q12HR #14 tab 08/05/16 11/30/16 Unknown Rx 875 mg] HYDROcodone/APAP 5-325 [[place] 1 each PO Q6HR PRN #20 tablet 08/05/16 11/30/16 Unknown Rx 5/325] carvediloL [Coreg] 6.25 mg PO BID 11/30/16 11/30/16 Unknown History Acetaminophen [Acetaminophen TAB] 500 mg PO Q6HR #30 tablet 03/20/17 Unknown Rx methOCARBAMOL [Robaxin TAB] 500 mg PO Q6H PRN #30 tablet 03/20/17 Unknown Rx methOCARBAMOL [Robaxin TAB] 500 mg PO Q8HR PRN #20 tablet 01/07/19 Unknown Rx HYDROcodone/APAP 5-325 [[place] 1 - 2 each PO Q6HR PRN #14 tablet 05/17/19 Unknown Rx 5/325] Ibuprofen [Motrin 800 MG tab] 800 mg PO Q8HR PRN #20 tablet 05/17/19 Unknown Rx HYDROcodone/APAP 5-325 [[place] 1 each PO Q6HR PRN #14 tablet 09/02/19 Unknown Rx 5/325] Ibuprofen [Motrin 600 MG tab] 600 mg PO Q8H PRN #20 tablet 09/02/19 Unknown Rx HYDROcodone/APAP 5-325 [[place] 1 each PO Q6HR PRN #10 tablet 11/07/19 Unknown Rx 5/325] lisinopriL [Zestril TAB] 40 mg PO QDAY #30 tablet 11/07/19 Unknown Rx ED Physical Exam - General Limitations: No Limitations General appearance: alert, in no apparent distress - Head Head exam: Present: atraumatic, normocephalic - Eye Eye exam: Present: normal appearance - ENT ENT exam: Present: mucous membranes moist - Neck Neck exam: Present: normal inspection, full ROM - Respiratory Respiratory exam: Present: normal lung sounds bilaterally. Absent: respiratory distress, wheezes, rales, rhonchi - Cardiovascular Cardiovascular Exam: Present: regular rate, normal rhythm, normal heart sounds. Absent: systolic murmur, diastolic murmur, rubs, gallop - GI/Abdominal GI/Abdominal exam: Present: soft, normal bowel sounds. Absent: distended, tenderness, guarding, rebound - Rectal Rectal exam: Present: deferred - Extremities Exam Extremities exam: Present: normal inspection - Neurological Exam Neurological exam: Present: alert, oriented X3 - Psychiatric Psychiatric exam: Present: normal affect, normal mood - Skin Skin exam: Present: warm, dry, intact, normal color. Absent: rash ED Course Vital Signs 11/07/19 11/07/19 11/07/19 14:27 14:36 17:52 Temperature 98.4 F 98.4 F Pulse Rate 76 69 Respiratory 18 18 Rate Blood Pressure 188/103 Blood Pressure 188/103 [Left] O2 Sat by Pulse 98 98 100 Oximetry 11/07/19 11/07/19 17:57 18:00 Temperature 97.8 F Pulse Rate 64 Respiratory 18 18 Rate Blood Pressure Blood Pressure 210/110 [Left] O2 Sat by Pulse 98 100 Oximetry ED Medical Decision Making - Lab Data Result diagrams: 11/07/19 15:39 11/07/19 15:39 Laboratory Results - last 24 hr 11/07/19 11/07/19 15:39 15:39 WBC 4.1 L RBC 4.71 Hgb 13.4 Hct 40.4 MCV 86 MCH 28 MCHC 33 RDW 15.8 H Plt Count 293 Lymph % (Auto) 26.0 Schley % (Auto) 8.9 H Eos % (Auto) 1.0 Baso % (Auto) 0.9 Lymph # 1.1 L Schley # 0.4 Eos # 0.0 Baso # 0.0 Seg Neutrophils % 63.2 Seg Neutrophils # 2.6 Sodium 142 Potassium 4.2 Chloride 104.3 Carbon Dioxide 27 Anion Gap 15 BUN 13 Creatinine 0.9 Estimated GFR > 60 BUN/Creatinine Ratio 14 Glucose 95 Calcium 9.7 Total Bilirubin 0.30 AST 27 ALT 15 Alkaline Phosphatase 61 Troponin T < 0.010 Total Protein 6.9 Albumin 4.1 Albumin/Globulin Ratio 1.5 Lipase 28 - Medical Decision Making Mr. Pascual presents with generalized malaise poor appetite for 1 month. Also has been noncompliant with blood pressure medicine. This gentleman will need outpatient primary care. I strongly encouraged him to follow-up with our outpatient medicine physician. I have prescribed 10 tablets of [place]. Also prescribed 30-day prescription of lisinopril. CBC chemistry within normal limits. Blood pressure is elevated. No signs of endorgan damage. Patient SC will need a full outpatient work-up for medical care. No acute emergency ev ident at this time. Critical care attestation.: If time is entered above; I have spent that time in minutes in the direct care of this critically ill patient, excluding procedure time. ED Disposition Clinical Impression: Hypertensive urgency, Malaise Disposition: DC-01 TO HOME OR SELFCARE Is pt being admited?: No Does the pt Need Aspirin: No Condition: Stable Additional Instructions: Please see your doctor this following week. Prescriptions: HYDROcodone/APAP 5-325 [[place] 5/325] 1 each PO Q6HR PRN #10 tablet PRN Reason: Pain lisinopriL [Zestril TAB] 40 mg PO QDAY #30 tablet Referrals: NEERAJ BEE MD [Staff Physician] - 3-5 Days
[2019-11-07 19:31] VITALS: BP 179/70
== END 2019-11-07 19:31 | disposition home or self-care (01) ==
LOC: ED 14:19
DX: I16.0 Hypertensive urgency (principal); R53.81 Other malaise; E11.9 Type 2 diabetes mellitus without complications; K21.9 Gastro-esophageal reflux disease without esophagitis; Z98.890 Other specified postprocedural states; Z79.82 Long term (current) use of aspirin; Z79.1 Long term (current) use of non-steroidal anti-inflammatories (NSAID); Z79.2 Long term (current) use of antibiotics; Z79.899 Other long term (current) drug therapy
CPT/HCPCS: 36415; 71046; 80053; 83690; 84484; 85025

== ENCOUNTER 2020-05-18 06:16 | Observation (INO) | payer MEDICARE ==
[2020-05-18 07:48] LABS: Basophils # (Auto) 0.1 K/mm3 (0.0-0.1); Basophils % (Auto) 1.4 % (0.0-1.8); Eosinophils # (Auto) 0.1 K/mm3 (0.0-0.4); Eosinophils % (Auto) 1.8 % (0.0-4.3); Hematocrit 38.6 % (35.5-45.6); Lymphocytes # (Auto) 1.2 K/mm3 (1.2-5.4); Lymphocytes % (Auto) 32.4 % (13.4-35.0); Mean Corpuscular HGB Conc 34 % (32-34); Mean Corpuscular Volume 89 fl (84-94); Monocytes # (Auto) 0.4 K/mm3 (0.0-0.8); Platelet Count 253 K/mm3 (140-440); Red Blood Count 4.32 M/mm3 (3.65-5.03); Red Cell Distribution Width 15.1 % (13.2-15.2)
[2020-05-18 07:51] LABS: BUN/Creatinine Ratio 21; Blood Urea Nitrogen 17 mg/dL (9-20); Calcium 9.6 mg/dL (8.4-10.2); Hemolysis Index 123
[2020-05-18 07:53] LABS: INR 1.09 (0.87-1.13)
[2020-05-18 07:54] LABS: Partial Thromboplastin Time 39.5 Sec. (24.2-36.6)
[2020-05-18] MEDS ORDERED: SODIUM CHLORIDE 0.9% 500 ML 500 ML IV SCH (08:00)
[2020-05-18] MEDS ORDERED: ASPIRIN EC 81 MG TAB PO ONE (08:00)
[2020-05-18] MEDS ORDERED: CLOPIDOGREL 75 MG TAB PO ONE (08:00)
[2020-05-18] MEDS ORDERED: MIDAZOLAM 2 MG/2 ML INJ ONE (08:50)
[2020-05-18] MEDS ORDERED: fentaNYL 100 MCG/2 ML INJ ONE (08:50)
[2020-05-18] MEDS ORDERED: NITROGLYCERIN SYRINGE 6 ML ONE (08:51)
[2020-05-18] MEDS ORDERED: VERAPAMIL 5 MG/2 ML INJ ONE (08:51)
[2020-05-18] MEDS ORDERED: HEPARIN/NS 5000 UNIT/500ML 1,000 ML IR ONE (08:51)
[2020-05-18] MEDS ORDERED: LIDOCAINE (2%) 20 MG/1 ML VIAL 20 ML MDV INFILTRATI ONE (08:51)
[2020-05-18] MEDS: HEPARIN 10,000 UNITS/10 ML VIAL ONE ×2 (10:11→10:12)
[2020-05-18] MEDS ORDERED: CLOPIDOGREL 75 MG TAB ONE (10:54)
[2020-05-18] MEDS ORDERED: HYDROcodone/ACETAMINOPHEN 5-325 MG TAB PO PRN (11:02)
--- NOTE | 2020-05-18 11:10 | Event Note ---
Date: 05/18/20 Patient presented for outpatient PCI, we performed successful two-vessel angioplasty and stenting, the mid LAD 80% stenosis was treated successfully with a 2.75 mm drug-eluting stent, and the greater than 99% proximal circumflex stenosis was treated with a 2.5 mm drug-eluting stent. Excellent angiographic result and DEENA-3 flow, no complications. Right radial access procedure. Patient will be admitted for overnight post PCI observation, anticipate discharge tomorrow on guideline directed medical therapy including dual oral a ntiplatelet therapy.
[2020-05-18] MEDS ORDERED: SODIUM CHLORIDE 0.9% 1000 ML 1,000 ML IV SCH (11:15)
--- NOTE | 2020-05-18 14:20 | Cardiac Catherization Report ---
CORONARY ANGIOPLASTY REPORT REASON FOR PROCEDURE: The patient is a 74-year-old man, who presented to the hospital several weeks ago with symptoms of an acute CVA, and during the admission also suffered an intercurrent non-ST elevation myocardial infarction. A cardiac catheterization at that time revealed an occluded proximal segment of a very tortuous circumflex artery, as well as an 80% stenosis of the mid LAD. Initial recommendation was for coronary artery bypass surgery to be done after optimal healing of his stroke. He was placed on medical therapy. Subsequently, the patient declined a recommendation for a bypass, and presented for alternative revascularization with PCI. Risks and benefits were discussed and the patient signed a consent to proceed. PROCEDURES: 1. Left coronary angioplasty and stenting of the mid LAD. 2. Second vessel coronary angioplasty and stenting of the proximal circumflex artery. 3. Sedation time, start 10:09, end 10:46. The patient was prepped and draped in a sterile fashion after informed consent. The right radial cath site was prepped and draped after a negative Messi's test. The right radial artery was entered using Seldinger technique followed by placement of a 6-Thai hydrophilic sheath. Routine radial cocktail was administered via the sheath. We selected a #3.0 XB guiding catheter and advanced to the left coronary ostium. Pre-intervention angiograms were taken. Angiograms revealed a stable, 80% stenosis of the mid LAD. Additionally, we found that the proximal circumflex occlusion from the previous cardiac catheterization had recanalized, leaving a 99% stenosis with DEENA 2 flow into a large bifurcating obtuse marginal system. We then recommended two vessel ad hoc coronary intervention. CORONARY ANGIOPLASTY: Initially, we turned our attention to the LAD, where a 0.014 Surgical Instrument Maker 50 guidewire was then introduced into the vessel across the lesional segment. The 80% LAD stenosis was predilated using a 2.5 mm balloon catheter. Following that, we deployed a 2.75 x 12 mm drug-eluting stent across the lesion with an excellent angiographic result, 0 residual stenosis and DEENA 3 flow. LESION #2: We then turned our attention to the circumflex system. Another 0.014 inch ChoICE PT guidewire was then introduced into the circumflex, maneuvered across the lesion, and after wire placement in the distal circumflex, we predilated the lesion with a 2.5 x 10 mm balloon catheter. After predilating the circumflex lesion, we then deployed a 2.5 x 8 mm drug-eluting stent and deployed the stent optimal pressures. Following stenting of the circumflex, we restored DEENA 3 flow and there was an excellent angiographic result at the lesional segment, 0 residual stenosis. The patient tolerated both procedures well, no complications, he was returned to the postprocedure unit in stable condition. CONCLUSION: 1. Multivessel coronary artery disease. 2. Successful angioplasty and stenting of the mid LAD, with deployment of a 2.75 x 12 mm drug-eluting stent. 3. Successful second vessel angioplasty and stenting of the circumflex, with deployment of a 2.5 x 8 mm drug-eluting stent. JOB# [id number] RAAD/FREDDIE
[2020-05-18] MEDS: RANOLAZINE ER 500 MG TAB 12HR PO SCH ×2 (18:15→22:37)
[2020-05-18] MEDS: PANTOPRAZOLE 40 MG TAB PO SCH (18:15)
[2020-05-18] MEDS: LISINOPRIL 40 MG TAB PO SCH (18:15)
[2020-05-18] MEDS: carvediloL 6.25 MG TAB PO SCH (22:35)
[2020-05-18] MEDS: FERROUS SULFATE 325 MG TAB PO SCH (22:37)
[2020-05-19 07:17] LABS: Basophils # (Auto) 0.1 K/mm3 (0.0-0.1); Basophils % (Auto) 2.4 % (0.0-1.8); Eosinophils # (Auto) 0.1 K/mm3 (0.0-0.4); Eosinophils % (Auto) 2.2 % (0.0-4.3); Hematocrit 37.1 % (35.5-45.6); Hemoglobin 12.5 gm/dl (11.8-15.2); Lymphocytes # (Auto) 1.1 K/mm3 (1.2-5.4); Mean Corpuscular HGB Conc 34 % (32-34); Mean Corpuscular Volume 89 fl (84-94); Monocytes # (Auto) 0.5 K/mm3 (0.0-0.8); Monocytes % (Auto) 12.5 % (0.0-7.3); Platelet Count 229 K/mm3 (140-440); Red Blood Count 4.15 M/mm3 (3.65-5.03)
[2020-05-19 07:37] LABS: Creatine Kinase MB 3.6 ng/mL (0.0-4.0)
[2020-05-19 07:41] LABS: BUN/Creatinine Ratio 16; Blood Urea Nitrogen 13 mg/dL (9-20); Hemolysis Index 6
[2020-05-19 08:43] VITALS: BP 136/77
--- NOTE | 2020-05-19 09:13 | XRay Report ---
XR chest 1V ap INDICATION / CLINICAL INFORMATION: post pci. COMPARISON: March 29, 2020 FINDINGS: SUPPORT DEVICES: None. HEART / MEDIASTINUM: No significant abnormality. LUNGS / PLEURA: Lungs are clear. Costophrenic sulci are sharp. No pneumothorax. ADDITIONAL FINDINGS: No significant additional findings. IMPRESSION: 1. No acute findings. Signer Name: Maximo Ibarra MD Signed: 05/19/2020 9:09 AM Workstation Name: [id number]
[2020-05-19] MEDS ORDERED: CLOPIDOGREL 75 MG TAB PO SCH (10:00)
[2020-05-19] MEDS ORDERED: ASPIRIN EC 81 MG TAB PO SCH (10:00)
--- NOTE | 2020-05-19 11:38 | Short Stay Summary ---
Short Stay Documentation Date of service: 05/19/20 - History H&P: obtained from office - Allergies and Medications Current Medications: Allergies No Known Allergies Allergy (Verified 01/07/19 12:49) Home Medications Medication Instructions Recorded Confirmed Last Taken Type Acetaminophen [Acetaminophen TAB] 500 mg PO Q6HR #30 tablet 03/20/17 05/18/20 Unknown Rx AtorvaSTATin [Lipitor] 40 mg PO QHS #30 tablet 03/26/20 05/18/20 05/17/20 Rx HYDROcodone/APAP 5-325 [[place] 1 each PO Q6HR PRN #20 tablet 03/26/20 05/18/20 Unknown Rx 5-325 mg TAB] ISOSORBIDE MONOnitrate [Imdur ER] 30 mg PO QDAY #30 tablet 03/26/20 05/18/20 05/17/20 Rx carvediloL [Coreg] 6.25 mg PO BID #60 03/26/20 05/18/20 05/17/20 Rx lisinopriL [Zestril TAB] 40 mg PO QDAY #30 tablet 03/26/20 05/18/20 05/17/20 Rx methOCARBAMOL [Robaxin TAB] 500 mg PO Q8HR PRN #90 tablet 03/26/20 05/18/20 Unknown Rx Ferrous Sulfate [Feosol 325 MG tab] 325 mg PO BID #60 tablet 04/01/20 05/18/20 05/17/20 Rx Pantoprazole [Protonix TAB] 40 mg PO QDAY #30 tablet. 04/01/20 05/18/20 Unknown Rx Ranolazine ER [Ranexa ER] 500 mg PO BID #60 tablet 04/01/20 05/18/20 Unknown Rx Aspirin [Adult Aspirin] 81 mg PO DAILY 05/18/20 05/18/20 05/17/20 History Clopidogrel [Plavix] 75 mg PO QDAY 05/18/20 05/18/20 05/17/20 History Active Medications Hydrocodone Bitart/Acetaminophen ([place] 5/325) 1 each PO Q6H PRN PRN Reason: Pain, Moderate (4-6) Last Admin: 05/18/20 22:33 Dose: 1 each Documented by: Aspirin (Halfprin Ec) 81 mg PO DAILY FERNANDO Atorvastatin Calcium (Lipitor) 40 mg PO QHS FERNANDO Last Admin: 05/18/20 22:37 Dose: 40 mg Documented by: Carvedilol (Coreg) 6.25 mg PO BID [facility] Last Admin: 05/18/20 22:35 Dose: 6.25 mg Documented by: Clopidogrel Bisulfate (Plavix) 75 mg PO QDAY [facility] Ferrous Sulfate (Feosol) 325 mg PO BID [facility] Last Admin: 05/18/20 22:37 Dose: 325 mg Documented by: Isosorbide Mononitrate (Imdur) 30 mg PO QDAY [facility] Last Admin: 05/18/20 18:15 Dose: Not Given Documented by: Lisinopril (Zestril) 40 mg PO QDAY [facility] Last Admin: 05/18/20 18:15 Dose: Not Given Documented by: Methocarbamol (Robaxin) 500 mg PO Q8HR PRN PRN Reason: Muscle Spasm Pantoprazole Sodium (Protonix) 40 mg PO QDAY [facility] Last Admin: 05/18/20 18:15 Dose: Not Given Documented by: Ranolazine (Ranexa Er) 500 mg PO BID [facility] Last Admin: 05/18/20 22:37 Dose: 500 mg Documented by: - Brief post op/procedure progress note Condition: stable - Hospital course Hospital course: Stable overnight observation. - Disposition Condition at discharge: Good Disposition: DC-01 TO HOME OR SELFCARE Short Stay Discharge Plan Activity: advance as tolerated Diet: low fat, low cholesterol, low salt Wound: open to air, keep clean and dry Follow up with: ANDI VENTURA MD [Primary Care Provider] - 7 Days
[2020-05-19] MEDS: LISINOPRIL 40 MG TAB PO SCH (12:47)
[2020-05-19] MEDS: PANTOPRAZOLE 40 MG TAB PO SCH (12:47)
[2020-05-19] MEDS: FERROUS SULFATE 325 MG TAB PO SCH (12:47)
[2020-05-19] MEDS: carvediloL 6.25 MG TAB PO SCH (12:47)
[2020-05-19] MEDS: RANOLAZINE ER 500 MG TAB 12HR PO SCH (12:47)
== END 2020-05-19 14:51 | disposition home or self-care (01) ==
LOC: CATHLABREC 06:16 → 4A 11:02
PROVIDERS: ADMIT Internal Medicine Cardiovascular Disease; ATTEND Internal Medicine Cardiovascular Disease
DX: I25.10 Atherosclerotic heart disease of native coronary artery without angina pectoris (principal); I25.5 Ischemic cardiomyopathy; I50.9 Heart failure, unspecified; R94.31 Abnormal electrocardiogram [ECG] [EKG]; Z86.73 Personal history of transient ischemic attack (TIA), and cerebral infarction without residual deficits; Z79.82 Long term (current) use of aspirin; Z79.02 Long term (current) use of antithrombotics/antiplatelets; Z79.899 Other long term (current) drug therapy
CPT/HCPCS: 36415; 71045; 80048; 82550; 82553; 84484; 85025; 85347; 85610; 85730; 92928; 92929; 93005; A9270; C1725; C1769; C1874; C1887; C1894; C9600; C9601; G0378; J1644; J2250; J3010; J7040; Q9967

== ENCOUNTER 2020-06-08 16:20 | Emergency (ER) | payer MEDICARE ==
[2020-06-08] MEDS ORDERED: ASPIRIN 325 MG TAB PO ONE (16:35)
[2020-06-08 16:55] LABS: Basophils % (Auto) 0.5 % (0.0-1.8); Eosinophils # (Auto) 0.1 K/mm3 (0.0-0.4); Eosinophils % (Auto) 2.1 % (0.0-4.3); Hematocrit 33.7 % (35.5-45.6); Hemoglobin 11.2 gm/dl (11.8-15.2); Lymphocytes # (Auto) 0.9 K/mm3 (1.2-5.4); Lymphocytes % (Auto) 29.9 % (13.4-35.0); Mean Corpuscular HGB Conc 33 % (32-34); Mean Corpuscular Volume 91 fl (84-94); Monocytes # (Auto) 0.3 K/mm3 (0.0-0.8); Platelet Count 222 K/mm3 (140-440); Red Cell Distribution Width 14.9 % (13.2-15.2)
[2020-06-08 17:12] LABS: BUN/Creatinine Ratio 16; Blood Urea Nitrogen 14 mg/dL (9-20); Calcium 8.9 mg/dL (8.4-10.2); Hemolysis Index 4
--- NOTE | 2020-06-08 17:13 | XRay Report ---
CHEST 1 VIEW 06/08/2020 4:06 PM INDICATION / CLINICAL INFORMATION: Chest Pain. COMPARISON: Chest one view from 05/19/2020. FINDINGS: SUPPORT DEVICES: None. HEART / MEDIASTINUM: No significant abnormality. LUNGS / PLEURA: No significant pulmonary or pleural abnormality. No pneumothorax. ADDITIONAL FINDINGS: No significant additional findings. IMPRESSION: 1. No acute abnormality of the chest. Signer Name: Aashish Tatum MD Signed: 06/08/2020 5:08 PM Workstation Name: [id number]
--- NOTE | 2020-06-08 19:20 | Emergency Department Report ---
ED Chest Pain HPI - General Chief Complaint: Chest Pain Stated Complaint: BACK PAIN, CHEST PAIN PUI?: No Time Seen by Provider: 06/08/20 17:53 Source: patient Mode of arrival: Ambulatory Limitations: No Limitations - History of Present Illness Initial Comments: Chief complaint: "I have broken ribs. I have a ruptured disc. I am just tired." HPI: This is a 74-year-old male with history of hypertension, CVA, FL status post cardiac stents 3 weeks ago who presents with left lower rib cage pain lower back pain. He states that he has shortness of breath walking up steps. Patient is concerned about his ribs. He broke several ribs about a year ago. He feels that the chest pain is due to the chest wall pain. Chest pain is persistent at rest. No change with inspiration. Patient is unable to describe the pain which is mild to moderate. Patient has sharp lower back pain worse with movement. Patient has been referred to CT surgery at [facility] for multivessel coronary artery disease. Patient needs CABG. He underwent recent he experienced recent CVA which delayed surgical intervention At the end of last month patient presented to the cardiology service for outpatient PCI. Two-vessel angioplasty performed with stents to the LAD and circumflex.. Complaint: chest pain -: Gradual, days(s) (Several days.) Onset: during rest, during exertion Pain Location: left chest Severity: moderate Quality: dull, other ("Hard to explain") Consistency: now resolved Improves With: rest Worsens With: other (nothing) Context: recent illness re: other (Fatigue) - Related Data Home Medications Medication Instructions Recorded Confirmed Last Taken Aspirin [Adult Aspirin] 81 mg PO DAILY 05/18/20 05/18/20 05/17/20 Clopidogrel [Plavix] 75 mg PO QDAY 05/18/20 05/18/20 05/17/20 Previous Rx's Medication Instructions Recorded Last Taken Type Acetaminophen [Acetaminophen TAB] 500 mg PO Q6HR #30 tablet 03/20/17 Unknown Rx AtorvaSTATin [Lipitor] 40 mg PO QHS #30 tablet 03/26/20 05/17/20 Rx HYDROcodone/APAP 5-325 [[place] 1 each PO Q6HR PRN #20 tablet 03/26/20 Unknown Rx 5-325 mg TAB] ISOSORBIDE MONOnitrate [Imdur ER] 30 mg PO QDAY #30 tablet 03/26/20 05/17/20 Rx carvediloL [Coreg] 6.25 mg PO BID #60 03/26/20 05/17/20 Rx lisinopriL [Zestril TAB] 40 mg PO QDAY #30 tablet 03/26/20 05/17/20 Rx methOCARBAMOL [Robaxin TAB] 500 mg PO Q8HR PRN #90 tablet 03/26/20 Unknown Rx Ferrous Sulfate [Feosol 325 MG tab] 325 mg PO BID #60 tablet 04/01/20 05/17/20 Rx Pantoprazole [Protonix TAB] 40 mg PO QDAY #30 tablet. 04/01/20 Unknown Rx Ranolazine ER [Ranexa ER] 500 mg PO BID #60 tablet 04/01/20 Unknown Rx Allergies Allergy/AdvReac Type Severity Reaction Status Date / Time No Known Allergies Allergy Verified 01/07/19 12:49 Heart Score - HEART Score History: Slightly suspicious EKG: Non-specific Age: > 65 Risk factors: > 3 risk factors or hx of atherosclerotic disease Troponin: < normal limit HEART Score: 5 ED Review of Systems ROS: Stated complaint: BACK PAIN, CHEST PAIN Other details as noted in HPI Comment: All other systems reviewed and negative Constitutional: denies: fever, malaise Respiratory: denies: cough Cardiovascular: chest pain Musculoskeletal: back pain ED Past Medical Hx - Past Medical History Previous Medical History?: Yes Hx Hypertension: Yes Hx CVA: Yes Hx Heart Attack/AMI: Yes Hx Diabetes: No (denies) Hx GERD: Yes Hx Liver Disease: No Hx Renal Disease: No Hx Sickle Cell Disease: No Hx Arthritis: Yes Hx Seizures: No Hx Asthma: No Hx COPD: No Hx HIV: No Additional medical history: chronic back pain - Surgical History Past Surgical History?: Yes Hx Pacemaker: No Hx Internal Defibrillator: No Additional Surgical History: back surgery. NECK SURGERY - Social History Smoking Status: Current Some Day Smoker - Medications Home Medications: Home Medications Medication Instructions Recorded Confirmed Last Taken Type Acetaminophen [Acetaminophen TAB] 500 mg PO Q6HR #30 tablet 03/20/17 05/18/20 Unknown Rx AtorvaSTATin [Lipitor] 40 mg PO QHS #30 tablet 03/26/20 05/18/20 05/17/20 Rx HYDROcodone/APAP 5-325 [[place] 1 each PO Q6HR PRN #20 tablet 03/26/20 05/18/20 Unknown Rx 5-325 mg TAB] ISOSORBIDE MONOnitrate [Imdur ER] 30 mg PO QDAY #30 tablet 03/26/20 05/18/20 05/17/20 Rx carvediloL [Coreg] 6.25 mg PO BID #60 03/26/20 05/18/20 05/17/20 Rx lisinopriL [Zestril TAB] 40 mg PO QDAY #30 tablet 03/26/20 05/18/20 05/17/20 Rx methOCARBAMOL [Robaxin TAB] 500 mg PO Q8HR PRN #90 tablet 03/26/20 05/18/20 Unknown Rx Ferrous Sulfate [Feosol 325 MG tab] 325 mg PO BID #60 tablet 04/01/20 05/18/20 05/17/20 Rx Pantoprazole [Protonix TAB] 40 mg PO QDAY #30 tablet. 04/01/20 05/18/20 Unknown Rx Ranolazine ER [Ranexa ER] 500 mg PO BID #60 tablet 04/01/20 05/18/20 Unknown Rx Aspirin [Adult Aspirin] 81 mg PO DAILY 05/18/20 05/18/20 05/17/20 History Clopidogrel [Plavix] 75 mg PO QDAY 05/18/20 05/18/20 05/17/20 History ED Physical Exam - General Limitations: No Limitations General appearance: alert, in no apparent distress - Head Head exam: Present: atraumatic, normocephalic - Eye Eye exam: Present: normal appearance - ENT ENT exam: Present: mucous membranes moist - Neck Neck exam: Present: normal inspection, full ROM - Respiratory Respiratory exam: Present: normal lung sounds bilaterally. Absent: respiratory distress, wheezes, rales, rhonchi - Cardiovascular Cardiovascular Exam: Present: regular rate, normal rhythm, normal heart sounds. Absent: systolic murmur, diastolic murmur, rubs, gallop - GI/Abdominal GI/Abdominal exam: Present: soft, normal bowel sounds. Absent: distended, tenderness, guarding, rebound - Rectal Rectal exam: Present: deferred - Extremities Exam Extremities exam: Present: normal inspection - Neurological Exam Neurological exam: Present: alert, oriented X3 - Psychiatric Psychiatric exam: Present: normal affect, normal mood - Skin Skin exam: Present: warm, dry, intact, normal color. Absent: rash ED Course Vital Signs 06/08/20 06/08/20 06/08/20 16:33 17:47 18:00 Pulse Rate 64 68 61 Respiratory 18 16 13 Rate Blood Pressure 155/78 Blood Pressure 156/76 [Right] O2 Sat by Pulse 97 100 100 Oximetry 06/08/20 18:30 Pulse Rate 61 Respiratory 17 Rate Blood Pressure 156/85 Blood Pressure [Right] O2 Sat by Pulse 100 Oximetry DEENA score - Deena Score Age > 65: (1) Yes Aspirin use within the Past 7 Days: (0) No 3 or more CAD Risk Factors: (0) No 2 or more Angina events in past 24 hrs: (0) No Known CAD with more than 50% Stenosis: (0) No Elevated Cardiac Markers: (0) No ST Deviation Greater than 0.5mm: (0) No DEENA Score: 1 ED Medical Decision Making - Lab Data Result diagrams: 06/08/20 16:40 06/08/20 16:40 Laboratory Results - last 24 hr 06/08/20 06/08/20 16:40 16:40 WBC 3.0 L RBC 3.70 Hgb 11.2 L Hct 33.7 L MCV 91 MCH 30 MCHC 33 RDW 14.9 Plt Count 222 Lymph % (Auto) 29.9 [place] % (Auto) 9.0 H Eos % (Auto) 2.1 Baso % (Auto) 0.5 Lymph # (Auto) 0.9 L [place] # (Auto) 0.3 Eos # (Auto) 0.1 Baso # (Auto) 0.0 Seg Neutrophils % 58.5 Seg Neutrophils # 1.8 Sodium 141 Potassium 3.7 Chloride 104.9 Carbon Dioxide 28 Anion Gap 12 BUN 14 Creatinine 0.9 Estimated GFR > 60 BUN/Creatinine Ratio 16 Glucose 113 H Calcium 8.9 Troponin T < 0.010 - EKG Data 06/08/20 19:17 EKG obtained 1637 EKG interpreted by me Normal sinus rhythm rate 65 bpm normal axis normal intervals no ST elevation 06/08/20 19:18 EKG unchanged 05/18/2020 - Radiology Data Radiology results: report reviewed Chest radiograph 1 view: No acute abnormality of the chest - Medical Decision Making Mr. Schofield is a 74-year-old male who presents with back pain chest pain and fatigue. Lower back pain is chronic for patient. History of back surgery. Chest pain is highly atypical for unstable angina. However patient has multivessel disease. CABG has been recommended. No evidence of acute FL today with 2 - troponins. Recent intervention 3 weeks ago. Patient is pain-free currently. He has a difficult time describing the pain. I suspect stable angina. Patient understands to call when pain becomes severe or changes. 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 Critical care attestation.: If time is entered above; I have spent that time in minutes in the direct care of this critically ill patient, excluding procedure time. ED Disposition Clinical Impression: Coronary artery disease, Stable angina, Chronic back pain Disposition: DC-01 TO HOME OR SELFCARE Is pt being admited?: No Does the pt Need Aspirin: No Condition: Stable Instructions: Angina (ED) Referrals: KAIN CERNA MD [Staff Physician] - 3-5 Days
[2020-06-08 20:28] VITALS: BP 144/84
== END 2020-06-08 20:29 | disposition home or self-care (01) ==
LOC: ED 16:20
DX: I25.119 Atherosclerotic heart disease of native coronary artery with unspecified angina pectoris (principal); I10 Essential (primary) hypertension; M54.5 Low back pain; G89.29 Other chronic pain; I25.2 Old myocardial infarction; K21.9 Gastro-esophageal reflux disease without esophagitis; M19.91 Primary osteoarthritis, unspecified site; F17.200 Nicotine dependence, unspecified, uncomplicated; Z98.890 Other specified postprocedural states; Z79.899 Other long term (current) drug therapy
CPT/HCPCS: 36415; 71045; 80048; 84484; 85025; 93005

== ENCOUNTER 2020-10-01 16:08 | Emergency (ER) | payer MEDICARE ==
[2020-10-01] MEDS ORDERED: ACETAMINOPHEN 325 MG TAB PO ONE (17:10)
--- NOTE | 2020-10-01 17:16 | Event Note ---
ED Screening Note Date of service: 10/01/20 Time: 17:14 ED Screening Note: This initial assessment/diagnostic orders/clinical plan/treatment(s) is/are subject to change based on patients health status, clinical progression and re- assessment by fellow clinical providers in the ED. Further treatment and workup at subsequent clinical providers discretion. Patient/guardian urged not to elope from the ED as their condition may be serious if not clinically assessed and managed. Initial orders include: This is a 74-year-old male complaining of left-sided chest pain chest pain and neck pain. Patient states that he has not had an appetite for weeks and that he is losing weight. He reports slipping and falling a few days ago at home and since then has been having worsening neck pain.
[2020-10-01 17:33] LABS: Basophils % (Auto) 0.8 % (0.0-1.8); Eosinophils % (Auto) 0.4 % (0.0-4.3); Hematocrit 38.6 % (35.5-45.6); Lymphocytes # (Auto) 1.1 K/mm3 (1.2-5.4); Lymphocytes % (Auto) 23.5 % (13.4-35.0); Mean Corpuscular HGB Conc 34 % (32-34); Mean Corpuscular Volume 88 fl (84-94); Monocytes # (Auto) 0.5 K/mm3 (0.0-0.8); Monocytes % (Auto) 10.4 % (0.0-7.3); Platelet Count 214 K/mm3 (140-440); Red Blood Count 4.37 M/mm3 (3.65-5.03); Red Cell Distribution Width 14.9 % (13.2-15.2)
[2020-10-01 17:53] LABS: Alanine Aminotransferase 11 units/L (7-56); Albumin 3.8 g/dL (3.9-5); Blood Urea Nitrogen 6 mg/dL (9-20); Calcium 8.9 mg/dL (8.4-10.2); Hemolysis Index 8
[2020-10-01 18:06] LABS: BUN/Creatinine Ratio 9
--- NOTE | 2020-10-01 18:07 | XRay Report ---
CHEST 2 VIEWS INDICATION / CLINICAL INFORMATION: CHEST PAIN. COMPARISON: 06/08/2020 FINDINGS: SUPPORT DEVICES: None. HEART / MEDIASTINUM: No significant abnormality. LUNGS / PLEURA: No significant pulmonary or pleural abnormality. No pneumothorax. ADDITIONAL FINDINGS: No significant additional findings. IMPRESSION: 1. No acute findings. Signer Name: Ortega Dubois MD Signed: 10/01/2020 6:03 PM Workstation Name: [id number]
--- NOTE | 2020-10-01 18:21 | XRay Report ---
CERVICAL SPINE 3 VIEWS INDICATION / CLINICAL INFORMATION: NECK PAIN S/P FALL. COMPARISON: 01/07/2019 FINDINGS: VERTEBRAE: Osseous fusion of C5-C6. No acute fracture. No significant malalignment. DISC SPACES / FACET JOINTS:Mild diffuse intervertebral disc space narrowing with anterior osteophytos is, findings are similar compared to 01/07/2019. Facet degenerative arthrosis is greatest on the left in the region of C3-4 and C4-5. PARASPINAL SOFT TISSUES:No significant abnormality. ADDITIONAL FINDINGS: None. Signer Name: Ortega Dubois MD Signed: 10/01/2020 6:17 PM Workstation Name: [id number]
[2020-10-01] MEDS ORDERED: ONDANSETRON 4 MG ODT TAB PO ONE (18:44)
[2020-10-01] MEDS ORDERED: oxyCODONE /ACETAMINOPHEN 5-325MG TAB PO ONE (18:44)
[2020-10-01] MEDS ORDERED: KETOROLAC 30 MG/1 ML INJ IV ONE (18:44)
--- NOTE | 2020-10-01 19:06 | Emergency Department Report ---
ED Chest Pain HPI - General Chief Complaint: Chest Pain Stated Complaint: CHEST PAIN Time Seen by Provider: 10/01/20 18:27 Source: patient, EMS Mode of arrival: Wheelchair Limitations: No Limitations - History of Present Illness Initial Comments: CC: "I have a lot going on." HPI: This is a 74 yo male with hx of multi-vessel CAD, CVA, ME, cervical disc disease, anemia, tobacco dependence who presents with chest pain and neck pain for several days,. Patient has neck pain worse with movement, turning head. He has had persistent moderately severe left sided chest pain. Chest pain does not appear to be associated with exertion or eating. Chest pain appears pretty persistent. He is unable to recall The name of his PCP. I spoke extensively with patient's nephew and his nephew's fianc. They were able to give additional information regarding his care. Mr. Pascual sees Dr. Noble his specimen technician on a monthly basis. In August patient had cardiac stress test. He has been noncompliant with his blood pressure medication. Family members are concerned that he may have another stroke with his blood pressure not being controlled. I reviewed electronic record. According to cardiac catheterization performed here at this hospital, patient has multivessel coronary artery disease. CABG was recommended by CT surgery at [facility]. However patient was recovering from acute CVA at that time. Patient is a . His 13 years ago. 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 Nephew Mr. Garcia can be reached at [phone] Complaint: chest pain -: days(s) (Several days) Onset: during rest, during exertion Pain Location: substernal Pain Radiation: none Severity: mild Severity scale (0 -10): 5 Quality: aching, dull Consistency: constant Improves With: nothing Worsens With: nothing Treatments Prior to Arrival: none - Related Data Home Medications Medication Instructions Recorded Confirmed Last Taken Aspirin [Adult Aspirin] 81 mg PO DAILY 05/18/20 05/18/20 05/17/20 Clopidogrel [Plavix] 75 mg PO QDAY 05/18/20 05/18/20 05/17/20 Previous Rx's Medication Instructions Recorded Last Taken Type Acetaminophen [Acetaminophen TAB] 500 mg PO Q6HR #30 tablet 03/20/17 Unknown Rx AtorvaSTATin [Lipitor] 40 mg PO QHS #30 tablet 03/26/20 05/17/20 Rx HYDROcodone/APAP 5-325 [[place] 1 each PO Q6HR PRN #20 tablet 03/26/20 Unknown Rx 5-325 mg TAB] ISOSORBIDE MONOnitrate [Imdur ER] 30 mg PO QDAY #30 tablet 03/26/20 05/17/20 Rx carvediloL [Coreg] 6.25 mg PO BID #60 03/26/20 05/17/20 Rx lisinopriL [Zestril TAB] 40 mg PO QDAY #30 tablet 03/26/20 05/17/20 Rx methOCARBAMOL [Robaxin TAB] 500 mg PO Q8HR PRN #90 tablet 03/26/20 Unknown Rx Ferrous Sulfate [Feosol 325 MG tab] 325 mg PO BID #60 tablet 04/01/20 05/17/20 Rx Pantoprazole [Protonix TAB] 40 mg PO QDAY #30 tablet. 04/01/20 Unknown Rx Ranolazine ER [Ranexa ER] 500 mg PO BID #60 tablet 04/01/20 Unknown Rx Cyclobenzaprine HCl [Flexeril 5 MG 5 mg PO TID PRN #20 tab 10/01/20 Unknown Rx TAB] oxyCODONE /ACETAMINOPHEN [Percocet 1 tab PO Q6HR PRN #15 tablet 10/01/20 Unknown Rx 5/325] Allergies Allergy/AdvReac Type Severity Reaction Status Date / Time No Known Allergies Allergy Verified 01/07/19 12:49 Heart Score - HEART Score History: Slightly suspicious EKG: Non-specific Age: > 65 Risk factors: > 3 risk factors or hx of atherosclerotic disease Troponin: < normal limit HEART Score: 5 ED Review of Systems ROS: Stated complaint: CHEST PAIN Other details as noted in HPI Comment: All other systems reviewed and negative Constitutional: denies: fever, malaise Respiratory: denies: cough, shortness of breath Cardiovascular: chest pain Gastrointestinal: denies: abdominal pain, nausea, vomiting Skin: denies: rash, lesions ED Past Medical Hx - Past Medical History Previous Medical History?: Yes Hx Hypertension: Yes Hx CVA: Yes Hx Heart Attack/AMI: Yes Hx Diabetes: No (denies) Hx GERD: Yes Hx Liver Disease: No Hx Renal Disease: No Hx Sickle Cell Disease: No Hx Arthritis: Yes Hx Seizures: No Hx Asthma: No Hx COPD: No Hx HIV: No Additional medical history: chronic back pain - Surgical History Past Surgical History?: Yes Hx Pacemaker: No Hx Internal Defibrillator: No Additional Surgical History: back surgery. NECK SURGERY, angioplasty - Social History Smoking Status: Current Every Day Smoker Substance Use Type: Alcohol, Prescribed - Medications Home Medications: Home Medications Medication Instructions Recorded Confirmed Last Taken Type Acetaminophen [Acetaminophen TAB] 500 mg PO Q6HR #30 tablet 03/20/17 05/18/20 Unknown Rx AtorvaSTATin [Lipitor] 40 mg PO QHS #30 tablet 03/26/20 05/18/20 05/17/20 Rx HYDROcodone/APAP 5-325 [[place] 1 each PO Q6HR PRN #20 tablet 03/26/20 05/18/20 Unknown Rx 5-325 mg TAB] ISOSORBIDE MONOnitrate [Imdur ER] 30 mg PO QDAY #30 tablet 03/26/20 05/18/20 0 05/17/20 Rx carvediloL [Coreg] 6.25 mg PO BID #60 03/26/20 05/18/20 05/17/20 Rx lisinopriL [Zestril TAB] 40 mg PO QDAY #30 tablet 03/26/20 05/18/20 05/17/20 Rx methOCARBAMOL [Robaxin TAB] 500 mg PO Q8HR PRN #90 tablet 03/26/20 05/18/20 Unknown Rx Ferrous Sulfate [Feosol 325 MG tab] 325 mg PO BID #60 tablet 04/01/20 05/18/20 05/17/20 Rx Pantoprazole [Protonix TAB] 40 mg PO QDAY #30 tablet 04/01/20 05/18/20 Unknown Rx Ranolazine ER [Ranexa ER] 500 mg PO BID #60 tablet 04/01/20 05/18/20 Unknown Rx Aspirin [Adult Aspirin] 81 mg PO DAILY 05/18/20 05/18/20 05/17/20 History Clopidogrel [Plavix] 75 mg PO QDAY 05/18/20 05/18/20 05/17/20 History Cyclobenzaprine HCl [Flexeril 5 MG 5 mg PO TID PRN #20 tab 10/01/20 Unknown Rx TAB] oxyCODONE /ACETAMINOPHEN [Percocet 1 tab PO Q6HR PRN #15 tablet 10/01/20 Unknown Rx 5/325] ED Physical Exam - General Limitations: No Limitations General appearance: alert, in no apparent distress, anxious - Head Head exam: Present: atraumatic, normocephalic - Eye Eye exam: Present: normal appearance - ENT ENT exam: Present: mucous membranes moist - Neck Neck exam: Present: normal inspection, full ROM - Respiratory Respiratory exam: Present: normal lung sounds bilaterally. Absent: respiratory distress, wheezes, rales, rhonchi - Cardiovascular Cardiovascular Exam: Present: regular rate, normal rhythm, normal heart sounds. Absent: systolic murmur, diastolic murmur, rubs, gallop - GI/Abdominal GI/Abdominal exam: Present: soft, normal bowel sounds. Absent: distended, tenderness, guarding, rebound - Rectal Rectal exam: Present: deferred - Extremities Exam Extremities exam: Present: normal inspection - Neurological Exam Neurological exam: Present: alert, oriented X3 - Psychiatric Psychiatric exam: Present: normal affect, anxious - Skin Skin exam: Present: warm, dry, intact, normal color. Absent: rash ED Course Vital Signs 10/01/20 10/01/20 10/01/20 16:41 16:45 17:31 Temperature 99.4 F Pulse Rate 74 75 Respiratory 18 20 20 Rate Blood Pressure 143/90 143/90 Blood Pressure [Right] O2 Sat by Pulse 98 98 Oximetry 10/01/20 10/01/20 10/01/20 18:33 18:34 18:39 Temperature Pulse Rate 70 71 Respiratory 18 18 Rate Blood Pressure Blood Pressure 188/103 [Right] O2 Sat by Pulse 98 100 Oximetry DEENA score - Deena Score Age > 65: (1) Yes Aspirin use within the Past 7 Days: (0) No 3 or more CAD Risk Factors: (0) No 2 or more Angina events in past 24 hrs: (0) No Known CAD with more than 50% Stenosis: (0) No Elevated Cardiac Markers: (0) No ST Deviation Greater than 0.5mm: (0) No DEENA Score: 1 ED Medical Decision Making - Lab Data Result diagrams: 10/01/20 17:22 10/01/20 17:22 Laboratory Results - last 24 hr 10/01/20 10/01/20 10/01/20 17:14 17:22 17:22 WBC 4.6 RBC 4.37 Hgb 13.0 Hct 38.6 MCV 88 MCH 30 MCHC 34 RDW 14.9 Plt Count 214 Lymph % (Auto) 23.5 [place] % (Auto) 10.4 H Eos % (Auto) 0.4 Baso % (Auto) 0.8 Lymph # (Auto) 1.1 L [place] # (Auto) 0.5 Eos # (Auto) 0.0 Baso # (Auto) 0.0 Seg Neutrophils % 64.9 Seg Neutrophils # 3.0 Sodium 139 Potassium 3.5 L Chloride 104.5 Carbon Dioxide 30 Anion Gap 8 BUN 6 L Creatinine 0.7 L Estimated GFR > 60 BUN/Creatinine Ratio 9 Glucose 84 Calcium 8.9 Total Bilirubin 0.80 AST 20 ALT 11 Alkaline Phosphatase 52 Troponin T < 0.010 Total Protein 6.6 Albumin 3.8 L Albumin/Globulin Ratio 1.4 Abnormal Lab Results 10/01/20 10/01/20 10/01/20 17:14 17:22 17:22 WBC 4.6 RBC 4.37 Hgb 13.0 Hct 38.6 MCV 88 MCH 30 MCHC 34 RDW 14.9 Plt Count 214 Lymph % (Auto) 23.5 [place] % (Auto) 10.4 H Eos % (Auto) 0.4 Baso % (Auto) 0.8 Lymph # (Auto) 1.1 L [place] # (Auto) 0.5 Eos # (Auto) 0.0 Baso # (Auto) 0.0 Seg Neutrophils % 64.9 Seg Neutrophils # 3.0 Sodium 139 Potassium 3.5 L Chloride 104.5 Carbon Dioxide 30 Anion Gap 8 BUN 6 L Creatinine 0.7 L Estimated GFR > 60 BUN/Creatinine Ratio 9 Glucose 84 Calcium 8.9 Total Bilirubin 0.80 AST 20 ALT 11 Alkaline Phosphatase 52 Troponin T < 0.010 Total Protein 6.6 Albumin 3.8 L Albumin/Globulin Ratio 1.4 10/01/20 18:37 WBC RBC Hgb Hct MCV MCH MCHC RDW Plt Count Lymph % (Auto) [place] % (Auto) Eos % (Auto) Baso % (Auto) Lymph # (Auto) [place] # (Auto) Eos # (Auto) Baso # (Auto) Seg Neutrophils % Seg Neutrophils # Sodium Potassium Chloride Carbon Dioxide Anion Gap BUN Creatinine Estimated GFR BUN/Creatinine Ratio Glucose Calcium Total Bilirubin AST ALT Alkaline Phosphatase Troponin T < 0.010 Total Protein Albumin Albumin/Globulin Ratio - EKG Data -: EKG Interpreted by Me EKG shows normal: sinus rhythm, axis, intervals, QRS complexes Rate: normal - EKG Data When compared to previous EKG there are: no significant change 10/01/20 19:06 EKG obtained 1653 EKG interpreted by me Normal sinus rhythm rate 70 bpm normal intervals no ST elevation nonspecific T wave pattern 10/01/20 19:07 EKG unchanged from 06/08/2020 - Radiology Data Radiology results: report reviewed Chest radiograph 2 views: No acute findings according to radiology impression Cervical spine x-ray 3 view radiographs series: Osseous fusion of C5-C6 no acute fracture no significant malalignment, mild diffuse intervertebral disc space narrowing with anterior osteophyte phytosis findings are compared similar to 01/07/2019 facet degenerative arthrosis on the left in the region of C3-C4 C4-C5 no significant abnormality of paraspinal soft tissues - Medical Decision Making 1. Stable angina: Patient has multivessel coronary disease followed closely on a monthly basis by Dr. Noble. Patient does not desire to be discharged. I do not feel that emergent need for hospitalization. Troponin x2 -. EKG unchanged from 06/08/2020. I spoke with Dr. Noble's colleague insulation board calender operator Dr. Anand in order to coordinate outpatient care plan. It is unclear whether of CABG will be scheduled or is necessary. 2. Cervical spine degenerative disc disease with chronic neck pain history of previous fusion, extremities neurologically intact. Patient was given Percocet & Flexeril prescriptions. Also referred to neurosurgical master lay out specialist. 3. Hypertensive urgency due to medication noncompliance. Family members will assist in coordinating care with PCP. No evidence of endorgan damage 4. Cognitive issues. Patient appears to have frustration and anxiety when asked questions regarding his medical care. I recommended outpatient evaluation by neurologist to rule in or rule out dementia. Patient is discharged home. Critical care attestation.: If time is entered above; I have spent that time in minutes in the direct care of this critically ill patient, excluding procedure time. ED Disposition Clinical Impression: Stable angina, Coronary artery disease, Hypertension, Chronic neck pain, Cervical disc disease Disposition: - TO HOME OR SELFCARE Is pt being admited?: No Does the pt Need Aspirin: No Condition: Stable Instructions: Angina (ED), Hypertension (ED) Prescriptions: Cyclobenzaprine HCl [Flexeril 5 MG TAB] 5 mg PO TID PRN #20 tab PRN Reason: Muscle Spasm oxyCODONE /ACETAMINOPHEN [Percocet 5/325] 1 tab PO Q6HR PRN #15 tablet PRN Reason: Pain Referrals: DAVID SAMPSON MD [Staff Physician] - 3-5 Days YIMI NOBLE MD [Staff Physician] - 3-5 Days
[2020-10-01 19:55] VITALS: BP 174/108
== END 2020-10-01 20:43 | disposition home or self-care (01) ==
LOC: ED 16:08
DX: I25.10 Atherosclerotic heart disease of native coronary artery without angina pectoris (principal); G89.29 Other chronic pain; I10 Essential (primary) hypertension; M50.90 Cervical disc disorder, unspecified, unspecified cervical region; I25.2 Old myocardial infarction; K21.9 Gastro-esophageal reflux disease without esophagitis; M19.90 Unspecified osteoarthritis, unspecified site; F17.200 Nicotine dependence, unspecified, uncomplicated; Z79.899 Other long term (current) drug therapy; Z98.890 Other specified postprocedural states; Z86.73 Personal history of transient ischemic attack (TIA), and cerebral infarction without residual deficits
CPT/HCPCS: 36415; 71046; 72040; 80053; 84484; 85025; 93005; 96374; 99284; J1885; Q0162

== ENCOUNTER 2020-10-20 15:48 | Emergency (ER) | payer MEDICARE ==
[2020-10-20 15:59] VITALS: BP 142/84
--- NOTE | 2020-10-20 16:02 | Event Note ---
ED Screening Note ED Screening Note: sp fall a couple weeks ago; fell down flight of steps no co lumbar pain so bad "he can't turn over in bed." pt denies cp or sob pt seen here many times he has a/c pain; however given his frailty I can not ro fracture for he has pain on palp of lumbar spine [place] poor informant thc This initial assessment/diagnostic orders/clinical plan/treatment(s) is/are subject to change based on patients health status, clinical progression and re- assessment by fellow clinical providers in the ED. Further treatment and workup at subsequent clinical providers discretion. Patient/guardian urged not to elope from the ED as their condition may be serious if not clinically assessed and managed. Initial orders include: CT spine ro fracture given age frailty and fall
--- NOTE | 2020-10-20 17:01 | Cat Scan Report ---
CT THORACIC SPINE WITHOUT CONTRAST INDICATION / CLINICAL INFORMATION: pain sp fall. TECHNIQUE: Axial CT images were obtained through the thoracic spine. Sagittal and coronal reformatted images wer e produced. All CT scans at this location are performed using CT dose reduction for ALARA by means of automated exposure control. COMPARISON: None available. FINDINGS: VERTEBRAE: No significant abnormality. No Ffracture; bridging osteophytes lower thoracic spine ALIGNMENT: No significant abnormality. DISC SPACES: No significant abnormality. FACET and COSTOVERTEBRAL JOINTS: No significant abnormality. CERVICOTHORACIC JUNCTION:No significant abnormality. SPINAL CANAL: No significant abnormality. PARASPINAL SOFT TISSUES: No significant abnormality. ADDITIONAL FINDINGS: None. LUNGS: No significant abnormality of visualized lungs. IMPRESSION: 1. No fracture in the thoracic spine Signer Name: Abbe Bryant MD Signed: 10/20/2020 4:57 PM Workstation Name: [id number]
--- NOTE | 2020-10-20 17:01 | Cat Scan Report ---
CT LUMBAR SPINE: 10/20/2020 INDICATION / CLINICAL INFORMATION: pain sp fall. COMPARISON: None available. FINDINGS: CT images of the lumbar spine were obtained. Images are evaluated in the axial, coronal, and sagittal planes. There is no evidence of acute abnormality. Vertebral body height and alignment is well preserved. Prominent diffuse osteopenia is present. LEVEL BY LEVEL ANALYSIS: L5-S1: Disc space narrowing and moderate diffuse disc bulging. L4-5: Mild diffuse disc bulging and facet degenerative changes. L3-4: Mild diffuse disc bulging and facet degenerative changes. L2-3: Disc profile is well preserved. Mild facet degenerative changes. L1-2: Unremarkable. PARASPINAL STRUCTURES: Unremarkable. IMPRESSION: No acute abnormality. All CT scans at this location are performed using dose reduction to ALARA by means of automated expos ure control. Signer Name: Messi Smith MD Signed: 10/20/2020 4:57 PM Workstation Name: [id number]
[2020-10-20] MEDS ORDERED: dexAMETHasone 4 MG/ML VIAL IM ONE (17:16)
--- NOTE | 2020-10-20 17:19 | Emergency Department Report ---
ED Back Pain/Injury HPI - General Chief Complaint: Back Pain/Injury Stated Complaint: LOW BACK PAIN Time Seen by Provider: 10/20/20 16:01 Source: patient, EMS Limitations: No Limitations - History of Present Illness Initial Comments: 74 YO MALE COMES TO ER WITH LUMBAR BACK PAIN. HE HAS A/C CHRONIC PAIN BUT HE REPORTS FALLING DOWN STEPS A COUPLE WEEKS AGO. NEURO INTACT BUT STATES NO MATTER HOW HE MOVES HE CAN NOT GET COMFORT. AMBULATORY TO ER. Complaint: back pain -: Sudden, week(s) Similar Symptoms Previously: Yes Place: home Radiation: none Consistency: constant Improves With: immobilization Worsens With: movement Associated Symptoms: denies other symptoms - Related Data Home Medications Medication Instructions Recorded Confirmed Last Taken Aspirin [Adult Aspirin] 81 mg PO DAILY 05/18/20 05/18/20 05/17/20 Clopidogrel [Plavix] 75 mg PO QDAY 05/18/20 05/18/20 05/17/20 Previous Rx's Medication Instructions Recorded Last Taken Type Acetaminophen [Acetaminophen TAB] 500 mg PO Q6HR #30 tablet 03/20/17 Unknown Rx AtorvaSTATin [Lipitor] 40 mg PO QHS #30 tablet 03/26/20 05/17/20 Rx HYDROcodone/APAP 5-325 [[place] 1 each PO Q6HR PRN #20 tablet 03/26/20 Unknown Rx 5-325 mg TAB] ISOSORBIDE MONOnitrate [Imdur ER] 30 mg PO QDAY #30 tablet 03/26/20 05/17/20 Rx carvediloL [Coreg] 6.25 mg PO BID #60 03/26/20 05/17/20 Rx lisinopriL [Zestril TAB] 40 mg PO QDAY #30 tablet 03/26/20 05/17/20 Rx methOCARBAMOL [Robaxin TAB] 500 mg PO Q8HR PRN #90 tablet 03/26/20 Unknown Rx Ferrous Sulfate [Feosol 325 MG tab] 325 mg PO BID #60 tablet 04/01/20 05/17/20 Rx Pantoprazole [Protonix TAB] 40 mg PO QDAY #30 tablet 04/01/20 Unknown Rx Ranolazine ER [Ranexa ER] 500 mg PO BID #60 tablet 04/01/20 Unknown Rx Cyclobenzaprine HCl [Flexeril 5 MG 5 mg PO TID PRN #20 tab 10/01/20 Unknown Rx TAB] oxyCODONE /ACETAMINOPHEN [Percocet 1 tab PO Q6HR PRN #15 tablet 10/01/20 Unknown Rx 5/325] predniSONE [Deltasone] 20 mg PO DAILY #5 tablet 10/20/20 Unknown Rx Allergies Allergy/AdvReac Type Severity Reaction Status Date / Time No Known Allergies Allergy Verified 10/20/20 15:56 ED Review of Systems ROS: Stated complaint: LOW BACK PAIN Other details as noted in HPI Comment: All other systems reviewed and negative ED Past Medical Hx - Past Medical History Hx Hypertension: Yes Hx CVA: Yes Hx Heart Attack/AMI: Yes Hx Diabetes: No (denies) Hx GERD: Yes Hx Liver Disease: No Hx Renal Disease: No Hx Sickle Cell Disease: No Hx Arthritis: Yes Hx Seizures: No Hx Asthma: No Hx COPD: No Hx HIV: No Additional medical history: chronic back pain - Surgical History Past Surgical History?: Yes Hx Pacemaker: No Hx Internal Defibrillator: No Additional Surgical History: back surgery. NECK SURGERY, angioplasty - Family History Family history: no significant - Social History Smoking Status: Current Every Day Smoker Substance Use Type: Alcohol, Marijuana - Medications Home Medications: Home Medications Medication Instructions Recorded Confirmed Last Taken Type Acetaminophen [Acetaminophen TAB] 500 mg PO Q6HR #30 tablet 03/20/17 05/18/20 Unknown Rx AtorvaSTATin [Lipitor] 40 mg PO QHS #30 tablet 03/26/20 05/18/20 05/17/20 Rx HYDROcodone/APAP 5-325 [[place] 1 each PO Q6HR PRN #20 tablet 03/26/20 05/18/20 Unknown Rx 5-325 mg TAB] ISOSORBIDE MONOnitrate [Imdur ER] 30 mg PO QDAY #30 tablet 03/26/20 05/18/20 05/17/20 Rx carvediloL [Coreg] 6.25 mg PO BID #60 03/26/20 05/18/20 05/17/20 Rx lisinopriL [Zestril TAB] 40 mg PO QDAY #30 tablet 03/26/20 05/18/20 05/17/20 Rx methOCARBAMOL [Robaxin TAB] 500 mg PO Q8HR PRN #90 tablet 03/26/20 05/18/20 Unknown Rx Ferrous Sulfate [Feosol 325 MG tab] 325 mg PO BID #60 tablet 04/01/20 05/18/20 05/17/20 Rx Pantoprazole [Protonix TAB] 40 mg PO QDAY #30 tablet. 04/01/20 05/18/20 Unknown Rx Ranolazine ER [Ranexa ER] 500 mg PO BID #60 tablet 04/01/20 05/18/20 Unknown Rx Aspirin [Adult Aspirin] 81 mg PO DAILY 05/18/20 05/18/20 05/17/20 History Clopidogrel [Plavix] 75 mg PO QDAY 05/18/20 05/18/20 05/17/20 History Cyclobenzaprine HCl [Flexeril 5 MG 5 mg PO TID PRN #20 tab 10/01/20 Unknown Rx TAB] oxyCODONE /ACETAMINOPHEN [Percocet 1 tab PO Q6HR PRN #15 tablet 10/01/20 Unknown Rx 5/325] predniSONE [Deltasone] 20 mg PO DAILY #5 tablet 10/20/20 Unknown Rx ED Physical Exam - General Limitations: No Limitations General appearance: alert, in no apparent distress - Head Head exam: Present: normocephalic - Eye Eye exam: Present: normal appearance - ENT ENT exam: Present: mucous membranes moist - Neck Neck exam: Present: normal inspection - Respiratory Respiratory exam: Present: normal lung sounds bilaterally. Absent: respiratory distress - Cardiovascular Cardiovascular Exam: Present: regular rate, normal rhythm. Absent: systolic murmur, diastolic murmur, rubs, gallop - GI/Abdominal GI/Abdominal exam: Present: soft, normal bowel sounds - Rectal Rectal exam: Present: deferred - Extremities Exam Extremities exam: Present: normal inspection - Back Exam Back exam: Present: tenderness - Neurological Exam Neurological exam: Present: alert, oriented X3 - Psychiatric Psychiatric exam: Present: normal affect, normal mood - Skin Skin exam: Present: warm, dry, intact, normal color. Absent: rash ED Course Vital Signs 10/20/20 15:57 Temperature 98.8 F Pulse Rate 85 Respiratory 20 Rate Blood Pressure 142/84 O2 Sat by Pulse 97 Oximetry ED Medical Decision Making - Radiology Data Radiology results: report reviewed, image reviewed [facility] - Medical Decision Making Vital Signs 10/20/20 15:57 Temperature 98.8 F Pulse Rate 85 Respiratory 20 Rate Blood Pressure 142/84 O2 Sat by Pulse 97 Oximetry PAIN IS MIDLINE AND OVER LUMBAR AREA. AMBULATORY NEURO INTACT NO S/S CAUDA EQUINA VSS NO DYSURIA/ABD PAIN OR DIFFICULTY URINATING CT NOTED PT MEDICATED WITH DECADRON IM PT DC HOME WITH DC POC AND FOLLOW UP. PT VERBALIZES UNDERSTANDING OF PLAN OF CARE. - Differential Diagnosis RO FX Critical care attestation.: If time is entered above; I have spent that time in minutes in the direct care of this critically ill patient, excluding procedure time. ED Disposition Clinical Impression: Back pain Disposition: DC-01 TO HOME OR SELFCARE Is pt being admited?: No Does the pt Need Aspirin: No Condition: Stable Instructions: Acute Back Pain, Adult Additional Instructions: WARM COMPRESSES OVER THE COUNTER MOTRIN OR TYLENOL FOR PAIN MED ORDERED TODAY FOLLOW UP WITH MD-REFERRALS BELOW Prescriptions: predniSONE [Deltasone] 20 mg PO DAILY #5 tablet Referrals: BRYAN LITTLEJOHN MD [Primary Care Provider] - 3-5 Days NEERAJ BEE MD [Staff Physician] - 3-5 Days CADE GARAY MD [Staff Physician] - 3-5 Days Time of Disposition: 17:16
== END 2020-10-20 17:25 | disposition home or self-care (01) ==
LOC: ED 15:48
DX: M54.5 Low back pain (principal); I10 Essential (primary) hypertension; I25.2 Old myocardial infarction; K21.9 Gastro-esophageal reflux disease without esophagitis; M19.91 Primary osteoarthritis, unspecified site; F17.200 Nicotine dependence, unspecified, uncomplicated; F12.10 Cannabis abuse, uncomplicated; Z98.890 Other specified postprocedural states; Z79.899 Other long term (current) drug therapy
CPT/HCPCS: 72128; 72131

== ENCOUNTER 2020-12-22 13:53 | Observation (INO) | payer MEDICARE ==
[2020-12-22] MEDS ORDERED: RABIES IMMUNE GLOBULIN P/F 300 UNIT/ML INJ 5 ML IM ONE (14:53)
[2020-12-22] MEDS ORDERED: TETANUS,DIPH,PERTUSS(ACELL) VACCINE 0.5 ML SYRINGE IM ONE (14:53)
[2020-12-22] MEDS ORDERED: RABIES VACCINE, HUMAN DIPLOID/PF 2.5 UNIT/ML VIAL IM ONE (14:53)
[2020-12-22] MEDS ORDERED: HYDROcodone/ACETAMINOPHEN 10-325MG TAB PO ONE (14:53)
--- NOTE | 2020-12-22 15:37 | XRay Report ---
RIGHT WRIST 3 VIEWS INDICATION / CLINICAL INFORMATION: hand/wrist dog bite COMPARISON: None available. FINDINGS: BONES / JOINT(S): Prominent underlying osteopenia. Degenerative change greatest at the first carpomet acarpal joint where changes are moderate. Mildly comminuted fracture distal metadiaphyseal junction o f the ulna. SOFT TISSUES: No significant abnormality. ADDITIONAL FINDINGS: None. Signer Name: Sylvester Costa MD Signed: 12/22/2020 3:33 PM Workstation Name: [id number]
[2020-12-22] MEDS ORDERED: PIPERACIL/TAZOBACTA 4.5/NS 100 4.5 GM/100 ML VIAL IV ONE (15:40)
[2020-12-22 16:22] LABS: Basophils % (Auto) 0.8 % (0.0-1.8); Eosinophils % (Auto) 0.5 % (0.0-4.3); Hematocrit 39.5 % (35.5-45.6); Hemoglobin 13.4 gm/dl (11.8-15.2); Lymphocytes # (Auto) 0.6 K/mm3 (1.2-5.4); Lymphocytes % (Auto) 13.9 % (13.4-35.0); Mean Corpuscular HGB Conc 34 % (32-34); Mean Corpuscular Volume 89 fl (84-94); Monocytes # (Auto) 0.3 K/mm3 (0.0-0.8); Monocytes % (Auto) 6.6 % (0.0-7.3); Platelet Count 264 K/mm3 (140-440); Red Blood Count 4.43 M/mm3 (3.65-5.03); Red Cell Distribution Width 15.8 % (13.2-15.2)
[2020-12-22 16:49] LABS: Alanine Aminotransferase 11 units/L (7-56); Albumin 3.5 g/dL (3.9-5); Blood Urea Nitrogen 8 mg/dL (9-20); Calcium 8.7 mg/dL (8.4-10.2); Hemolysis Index 42
[2020-12-22 16:52] LABS: BUN/Creatinine Ratio 11
--- NOTE | 2020-12-22 17:43 | Emergency Department Report ---
ED Animal Bite HPI - General Chief Complaint: Animal Bite Stated Complaint: DOG BITE RT ARM Time Seen by Provider: 12/22/20 14:53 Source: patient Mode of arrival: Wheelchair Limitations: No Limitations - History of Present Illness Initial Comments: This is a 69-year-old male brought by mother nontoxic, well nourished in appearance, no acute signs of distress presents to the ED with c/o of dog bite to right wrist area that occurred prior to arrival. Patient stated that is unaware of the dog and describes it as a pimple. Patient denies any head trauma or any other trauma. PAtient denies any information on vaccines. Patient states that he is unsure of last tetanus. Patient denies any fever, chills, nausea, vomiting, headache, stiff neck. Patient denies any allergies or significant past medical history. Patient stated police and animal control are notified. MD Complaint: animal bite -: This afternoon Right: Forearm Animal: dog Animal Control Notified: Yes Description: unknown animal Mechanism: bite Pain Description: sharp Severity scale (0 -10): 8 Context: unprovoked Associated Symptoms: erythema, bleeding. denies: discharge from wound, fever, chills, rash, loss of consciousness, cough, headache, diaphoresis, shortness of breath Treatments Prior to Arrival: wound dressing(s) - Related Data Patient Tetanus UTD: No Home Medications Medication Instructions Recorded Confirmed Last Taken Aspirin [Adult Aspirin] 81 mg PO DAILY 05/18/20 05/18/20 05/17/20 Clopidogrel [Plavix] 75 mg PO QDAY 05/18/20 05/18/20 05/17/20 Previous Rx's Medication Instructions Recorded Last Taken Type Acetaminophen [Acetaminophen TAB] 500 mg PO Q6HR #30 tablet 03/20/17 Unknown Rx AtorvaSTATin [Lipitor] 40 mg PO QHS #30 tablet 03/26/20 05/17/20 Rx HYDROcodone/APAP 5-325 [[place] 1 each PO Q6HR PRN #20 tablet 03/26/20 Unknown Rx 5-325 mg TAB] ISOSORBIDE MONOnitrate [Imdur ER] 30 mg PO QDAY #30 tablet 03/26/20 05/17/20 Rx carvediloL [Coreg] 6.25 mg PO BID #60 03/26/20 05/17/20 Rx lisinopriL [Zestril TAB] 40 mg PO QDAY #30 tablet 03/26/20 05/17/20 Rx methOCARBAMOL [Robaxin TAB] 500 mg PO Q8HR PRN #90 tablet 03/26/20 Unknown Rx Ferrous Sulfate [Feosol 325 MG tab] 325 mg PO BID #60 tablet 04/01/20 05/17/20 Rx Pantoprazole [Protonix TAB] 40 mg PO QDAY #30 tablet. 04/01/20 Unknown Rx Ranolazine ER [Ranexa ER] 500 mg PO BID #60 tablet 04/01/20 Unknown Rx Cyclobenzaprine HCl [Flexeril 5 MG 5 mg PO TID PRN #20 tab 10/01/20 Unknown Rx TAB] oxyCODONE /ACETAMINOPHEN [Percocet 1 tab PO Q6HR PRN #15 tablet 10/01/20 Unknown Rx 5/325] predniSONE [Deltasone] 20 mg PO DAILY #5 tablet 10/20/20 Unknown Rx Allergies Allergy/AdvReac Type Severity Reaction Status Date / Time No Known Allergies Allergy Verified 10/20/20 15:56 ED Review of Systems ROS: Stated complaint: DOG BITE RT ARM Other details as noted in HPI Comment: All other systems reviewed and negative Constitutional: denies: chills, fever Eyes: denies: eye pain, eye discharge, vision change ENT: denies: ear pain, throat pain Respiratory: denies: cough, shortness of breath, wheezing Cardiovascular: denies: chest pain, palpitations Endocrine: no symptoms reported Gastrointestinal: denies: abdominal pain, nausea, diarrhea Genitourinary: denies: urgency, dysuria Musculoskeletal: denies: back pain, joint swelling, arthralgia Skin: denies: rash, lesions Neurological: denies: headache, weakness, paresthesias Psychiatric: denies: anxiety, depression Hematological/Lymphatic: denies: easy bleeding, easy bruising ED Past Medical Hx - Past Medical History Previous Medical History?: Yes Hx Hypertension: Yes Hx CVA: Yes Hx Heart Attack/AMI: Yes Hx Diabetes: (denies) Hx GERD: Yes Hx Liver Disease: No Hx Renal Disease: No Hx Sickle Cell Disease: No Hx Arthritis: Yes Hx Seizures: No Hx Asthma: No Hx COPD: No Hx HIV: No Additional medical history: chronic back pain - Surgical History Past Surgical History?: Yes Hx Pacemaker: No Hx Internal Defibrillator: No Additional Surgical History: back surgery. NECK SURGERY, angioplasty - Social History Smoking Status: Unknown if ever smoked Substance Use Type: None - Medications Home Medications: Home Medications Medication Instructions Recorded Confirmed Last Taken Type Acetaminophen [Acetaminophen TAB] 500 mg PO Q6HR #30 tablet 03/20/17 05/18/20 Unknown Rx AtorvaSTATin [Lipitor] 40 mg PO QHS #30 tablet 03/26/20 05/18/20 05/17/20 Rx HYDROcodone/APAP 5-325 [[place] 1 each PO Q6HR PRN #20 tablet 03/26/20 05/18/20 Unknown Rx 5-325 mg TAB] ISOSORBIDE MONOnitrate [Imdur ER] 30 mg PO QDAY #30 tablet 03/26/20 05/18/20 05/17/20 Rx carvediloL [Coreg] 6.25 mg PO BID #60 03/26/20 05/18/20 05/17/20 Rx lisinopriL [Zestril TAB] 40 mg PO QDAY #30 tablet 03/26/20 05/18/20 05/17/20 Rx methOCARBAMOL [Robaxin TAB] 500 mg PO Q8HR PRN #90 tablet 03/26/20 05/18/20 Unknown Rx Ferrous Sulfate [Feosol 325 MG tab] 325 mg PO BID #60 tablet 04/01/20 05/18/20 05/17/20 Rx Pantoprazole [Protonix TAB] 40 mg PO QDAY #30 tablet. 04/01/20 05/18/20 Unknown Rx Ranolazine ER [Ranexa ER] 500 mg PO BID #60 tablet 04/01/20 05/18/20 Unknown Rx Aspirin [Adult Aspirin] 81 mg PO DAILY 05/18/20 05/18/20 05/17/20 History Clopidogrel [Plavix] 75 mg PO QDAY 05/18/20 05/18/20 05/17/20 History Cyclobenzaprine HCl [Flexeril 5 MG 5 mg PO TID PRN #20 tab 10/01/20 Unknown Rx TAB] oxyCODONE /ACETAMINOPHEN [Percocet 1 tab PO Q6HR PRN #15 tablet 10/01/20 Unknow n Rx 5/325] predniSONE [Deltasone] 20 mg PO DAILY #5 tablet 03/04/21 Unknown Rx ED Physical Exam - General Limitations: No Limitations General appearance: alert, in no apparent distress - Head Head exam: Present: atraumatic, normocephalic - Eye Eye exam: Present: normal appearance - Neck Neck exam: Present: normal inspection, full ROM. Absent: tenderness, meningismus, lymphadenopathy - Respiratory Respiratory exam: Present: normal lung sounds bilaterally. Absent: respiratory distress, wheezes, rales, rhonchi, stridor, chest wall tenderness, accessory muscle use, decreased breath sounds, prolonged expiratory - Cardiovascular Cardiovascular Exam: Present: regular rate, normal rhythm, normal heart sounds. Absent: bradycardia, tachycardia, irregular rhythm, systolic murmur, diastolic murmur, rubs, gallop - Extremities Exam Extremities exam: Present: full ROM, tenderness, normal capillary refill. Absent: joint swelling - Expanded Upper Extremity Exam Right General: Present: normal inspection Shoulder Exam: Present: normal inspection, full ROM. Absent: tenderness, s welling Upper Arm exam: Present: normal inspection, full ROM. Absent: tenderness, swelling Elbow exam: Present: normal inspection, full ROM. Absent: tenderness, swelling Forearm Wrist exam: Present: normal inspection, full ROM, tenderness. Absent: swelling, abrasion Hand Wrist exam: Present: normal inspection, full ROM, tenderness, swelling, abrasion. Absent: laceration, ecchymosis, deformity, crepidus, dislocation, erythema, amputation, nail avulsion, subungual hematoma Hand L/R Front: 1 - Positive: other (abreasion noted) Hand L/R Back: 1 - abrasions noted 2 - abarsion noted Vascular: Present: normal capillary refill. Absent: vascular compromise (Neurovascular within normal limits) - Back Exam Back exam: Present: normal inspection, full ROM - Neurological Exam Neurological exam: Present: alert, oriented X3, normal gait - Psychiatric Psychiatric exam: Present: normal affect, normal mood - Skin Skin exam: Present: warm, dry, intact, normal color. Absent: rash ED Course Vital Signs 12/22/20 12/22/20 14:47 15:00 Temperature 99 F Pulse Rate 60 Respiratory 18 18 Rate Blood Pressure 148/81 O2 Sat by Pulse 99 Oximetry - Reevaluation(s) Reevaluation #1: 12/22/20 17:46 Patient is speaking in full sentences with no signs of distress noted. - Consultations Consultation #1: 12/22/20 17:44 Patient has been consulted with Dr. Butler about patient history, physical exam, and labs/imaging results and patient to be placed on a splint and admitted with hospitalist. Consultation #2: 12/22/20 17:52 Patient has been consulted with Dr. Larson (hospitalist) about patient history, physical exam, and labs/xray results and accepts patient to services. Critical care attestation.: If time is entered above; I have spent that time in minutes in the direct care of this critically ill patient, excluding procedure time. ED Disposition Clinical Impression: Dog bite Qualifiers: Encounter type: initial encounter Qualified Code(s): W54.0XXA - Bitten by dog, initial encounter Open fracture of distal end of right ulna Qualifiers: Encounter type: initial encounter Open fracture type: open type I or II Fracture morphology: unspecified fracture morphology Qualified Code(s): S52.601B - Unspecified fracture of lower end of right ulna, initial encounter for open fracture type I or II Disposition: 09 OP ADMIT IP TO THIS HOSP Is pt being admited?: Yes Condition: Stable ED Medical Decision Making - Lab Data Result diagrams: 12/22/20 15:58 12/22/20 15:58 Lab Results 12/22/20 12/22/20 Range/Units 15:58 15:58 WBC 4.4 L (4.5-11.0) K/mm3 RBC 4.43 (3.65-5.03) M/mm3 Hgb 13.4 (11.8-15.2) gm/dl Hct 39.5 (35.5-45.6) % MCV 89 (84-94) fl MCH 30 (28-32) pg MCHC 34 (32-34) % RDW 15.8 H (13.2-15.2) % Plt Count 264 (140-440) K/mm3 Lymph % (Auto) 13.9 (13.4-35.0) % [place] % (Auto) 6.6 (0.0-7.3) % Eos % (Auto) 0.5 (0.0-4.3) % Baso % (Auto) 0.8 (0.0-1.8) % Lymph # (Auto) 0.6 L (1.2-5.4) K/mm3 [place] # (Auto) 0.3 (0.0-0.8) K/mm3 Eos # (Auto) 0.0 (0.0-0.4) K/mm3 Baso # (Auto) 0.0 (0.0-0.1) K/mm3 Seg Neutrophils % 78.2 H (40.0-70.0) % Seg Neutrophils # 3.5 (1.8-7.7) K/mm3 Sodium 141 (137-145) mmol/L Potassium 4.2 (3.6-5.0) mmol/L Chloride 103.7 (98-107) mmol/L Carbon Dioxide 26 (22-30) mmol/L Anion Gap 16 mmol/L BUN 8 L (9-20) mg/dL Creatinine 0.7 L (0.8-1.3) mg/dL Estimated GFR > 60 ml/min BUN/Creatinine Ratio 11 % Glucose 81 (75-100) mg/dL Calcium 8.7 (8.4-10.2) mg/dL Total Bilirubin 0.80 (0.1-1.2) mg/dL AST 24 (5-40) units/L ALT 11 (7-56) units/L Alkaline Phosphatase 60 (35-129) units/L Total Protein 6.4 (6.3-8.2) g/dL Albumin 3.5 L (3.9-5) g/dL Albumin/Globulin Ratio 1.2 % - Radiology Data [facility] [address] [place] [address] XRay Report Signed Patient: STEVEN AQUINO MR#: [id number] [birth year] Acct:[id number] [age]/Sex: 4Y 06M / M ADM Date: 1 Loc: ED Attending Dr: Ordering Physician: AMANDO AGUILERA DO Date of Service: 12/22/20 Procedure(s): XR elbow 2V LT Accession Number(s): [id number] cc: AMANDO AGUILERA DO Fluoro Time In Minutes: XR elbow 2V LT INDICATION: PAIN/SWELLING/ DEFORMITY. COMPARISON: None available. FINDINGS: There is a small elbow joint effusion. However, there is no appreciable fracture or subluxation in the elbow. In this situation, in a patient of this age, immobilization with follow-up radiograph in one to 2 weeks is typically recommended to evaluate for possible occult fracture. Signer Name: Jay Vazquez MD Signed: 12/22/2020 4:37 PM Workstation Name: [id number] Transcribed By: AKANKSHA Dictated By: Jay Vazquez MD Electronically Authenticated By: Jay Vazquez MD Signed Date/Time: 12/22/201636 DD/ 34 TD/TT: - Medical Decision Making 75-year-old male that presents with a dog bite with ulnar fracture. Patient is stable and was examined by me. Patient consulted with Dr. Villavicencio and agrees to the ED plan of care with IV antibiotics Zosyn and possible admission. Patient consulted with Dr. Butler which agrees for admission with hospitalist for further evaluation and treatment. Patient admitted with hospitalist. Patient received resuscitation in the ER. Patient received tetanus, rabies vaccine and rabies immunoglobulin in the ED. Area has been clean sterilely. Patient received a sugar-tong splint. Post splint assessment: neurovasular intact; normal cap refill <2 second; normal sensation; denies decreaed sensation; normal ROM of digits. At time of discharge, the patient does not seem toxic or ill in appearance. No acute signs of distress noted. Patient agrees to discharge treatment plan of care. No further questions noted by the patient.
[2020-12-22] MEDS ORDERED: HYDROcodone/ACETAMINOPHEN 5-325 MG TAB PO PRN (23:58)
[2020-12-22] MEDS ORDERED: NON-FORMULARY EACH (Cyclobenzaprine Hcl [Flexeril 5 Mg Tab] 5 MG Tablet) PO PRN (23:58)
[2020-12-22] MEDS ORDERED: oxyCODONE /ACETAMINOPHEN 5-325MG TAB PO PRN (23:58)
--- NOTE | 2020-12-23 00:02 | History and Physical Report ---
History of Present Illness Date of examination: 12/22/20 Date of admission: 12/22/20 21:02 Chief complaint: Dog bite to the right wrist History of present illness: 69-year-old male with history of hypertension coronary artery disease GERD and muscle spasms comes in for dog bite to right wrist. Evaluation emergency room revealed reveals fracture of the right distal ulna and open wound hence patient being admitted for antibiotics and orthopedic evaluation. Patient has a pain of 8 on a scale of 1-10. - Past Medical History Previous Medical History?: Yes Hx Hypertension: Yes Hx CVA: Yes Hx Heart Attack/AMI: Yes Hx Diabetes: (denies) Hx GERD: Yes Hx Arthritis: Yes Additional medical history: chronic back pain - Surgical History Past Surgical History?: Yes Additional Surgical History: back surgery. NECK SURGERY, angioplasty - Social History Smoking Status: Unknown if ever smoked Substance Use Type: None - Medications Home Medications: Home Medications Medication Instructions Recorded Confirmed Last Taken Type Acetaminophen [Acetaminophen TAB] 500 mg PO Q6HR #30 tablet 03/20/17 05/18/20 Unknown Rx AtorvaSTATin [Lipitor] 40 mg PO QHS #30 tablet 03/26/20 05/18/20 05/17/20 Rx HYDROcodone/APAP 5-325 [[place] 1 each PO Q6HR PRN #20 tablet 03/26/20 05/18/20 Unknown Rx 5-325 mg TAB] ISOSORBIDE MONOnitrate [Imdur ER] 30 mg PO QDAY #30 tablet 03/26/20 05/18/20 05/17/20 Rx carvediloL [Coreg] 6.25 mg PO BID #60 03/26/20 05/18/20 05/17/20 Rx lisinopriL [Zestril TAB] 40 mg PO QDAY #30 tablet 03/26/20 05/18/20 05/17/20 Rx methOCARBAMOL [Robaxin TAB] 500 mg PO Q8HR PRN #90 tablet 03/26/20 05/18/20 Unknown Rx Ferrous Sulfate [Feosol 325 MG tab] 325 mg PO BID #60 tablet 04/01/20 05/18/20 05/17/20 Rx Pantoprazole [Protonix TAB] 40 mg PO QDAY #30 tablet 04/01/20 05/18/20 Unknown Rx Ranolazine ER [Ranexa ER] 500 mg PO BID #60 tablet 04/01/20 05/18/20 Unknown Rx Aspirin [Adult Aspirin] 81 mg PO DAILY 05/18/20 05/18/20 05/17/20 History Clopidogrel [Plavix] 75 mg PO QDAY 05/18/20 05/18/20 05/17/20 History Cyclobenzaprine HCl [Flexeril 5 MG 5 mg PO TID PRN #20 tab 10/01/20 Unknown Rx TAB] oxyCODONE /ACETAMINOPHEN [Percocet 1 tab PO Q6HR PRN #15 tablet 10/01/20 Unknown Rx 5/325] predniSONE [Deltasone] 20 mg PO DAILY #5 tablet 10/20/20 Unknown Rx Review of Systems ROS: Stated complaint: DOG BITE RT ARM Other details as noted in HPI Comment: All other systems reviewed and negative Constitutional: denies: chills, fever Eyes: denies: eye pain, eye discharge, vision change ENT: denies: ear pain, throat pain Respiratory: denies: cough, shortness of breath, wheezing Cardiovascular: denies: chest pain, palpitations Endocrine: no symptoms reported Gastrointestinal: denies: abdominal pain, nausea, diarrhea Genitourinary: denies: urgency, dysuria Musculoskeletal: denies: back pain, joint swelling, arthralgia Skin: denies: rash, lesions Neurological: denies: headache, weakness, paresthesias Psychiatric: denies: anxiety, depression Hematological/Lymphatic: denies: easy bleeding, easy bruising Medications and Allergies Allergies Allergy/AdvReac Type Severity Reaction Status Date / Time No Known Allergies Allergy Verified 10/20/20 15:56 Home Medications Medication Instructions Recorded Confirmed Last Taken Type Acetaminophen [Acetaminophen TAB] 500 mg PO Q6HR #30 tablet 03/20/17 05/18/20 Unknown Rx AtorvaSTATin [Lipitor] 40 mg PO QHS #30 tablet 03/26/20 05/18/20 05/17/20 Rx HYDROcodone/APAP 5-325 [[place] 1 each PO Q6HR PRN #20 tablet 03/26/20 05/18/20 Unknown Rx 5-325 mg TAB] ISOSORBIDE MONOnitrate [Imdur ER] 30 mg PO QDAY #30 tablet 03/26/20 05/18/20 05/17/20 Rx carvediloL [Coreg] 6.25 mg PO BID #60 03/26/20 05/18/20 05/17/20 Rx lisinopriL [Zestril TAB] 40 mg PO QDAY #30 tablet 03/26/20 05/18/20 05/17/20 Rx methOCARBAMOL [Robaxin TAB] 500 mg PO Q8HR PRN #90 tablet 03/26/20 05/18/20 Unknown Rx Ferrous Sulfate [Feosol 325 MG tab] 325 mg PO BID #60 tablet 04/01/20 05/18/20 05/17/20 Rx Pantoprazole [Protonix TAB] 40 mg PO QDAY #30 tablet. 04/01/20 05/18/20 Unknown Rx Ranolazine ER [Ranexa ER] 500 mg PO BID #60 tablet 04/01/20 05/18/20 Unknown Rx Aspirin [Adult Aspirin] 81 mg PO DAILY 05/18/20 05/18/20 05/17/20 History Clopidogrel [Plavix] 75 mg PO QDAY 05/18/20 05/18/20 05/17/20 History Cyclobenzaprine HCl [Flexeril 5 MG 5 mg PO TID PRN #20 tab 10/01/20 Unknown Rx TAB] oxyCODONE /ACETAMINOPHEN [Percocet 1 tab PO Q6HR PRN #15 tablet 10/01/20 Unknown Rx 5/325] predniSONE [Deltasone] 20 mg PO DAILY #5 tablet 10/20/20 Unknown Rx Exam - Constitutional Vitals: Temp Pulse Resp BP Pulse Ox 98.7 F 58 L 18 167/95 97 12/22/20 22:26 12/22/20 22:26 12/22/20 22:26 12/22/20 22:26 12/22/20 22:26 General appearance: Present: no acute distress, well-nourished - EENT Eyes: Present: PERRL ENT: hearing intact, clear oral mucosa - Neck Neck: Present: supple, normal ROM - Respiratory Respiratory effort: normal Respiratory: bilateral: CTA - Cardiovascular Heart rate: 78 Rhythm: regular Heart Sounds: Present: S1 & S2. Absent: rub, click - Extremities Extremities: pulses symmetrical, No edema, abnormal (Right wrist--open wound secondary to dog bite) Peripheral Pulses: within normal limits - Abdominal General gastrointestinal: Present: soft, non-tender, non-distended, normal bowel sounds Male genitourinary: Present: normal - Integumentary Integumentary: Present: clear, warm, dry - Musculoskeletal Musculoskeletal: gait normal, strength equal bilaterally - Psychiatric Psychiatric: appropriate mood/affect, intact judgment & insight - Neurologic Neurologic: CNII-XII intact, moves all extremities Results - Labs CBC & Chem 7: 12/22/20 15:58 12/22/20 15:58 Labs: Laboratory Last Values WBC 4.4 K/mm3 (4.5-11.0) L 12/22/20 15:58 RBC 4.43 M/mm3 (3.65-5.03) 12/22/20 15:58 Hgb 13.4 gm/dl (11.8-15.2) 12/22/20 15:58 Hct 39.5 % (35.5-45.6) 12/22/20 15:58 MCV 89 fl (84-94) 12/22/20 15:58 MCH 30 pg (28-32) 12/22/20 15:58 MCHC 34 % (32-34) 12/22/20 15:58 RDW 15.8 % (13.2-15.2) H 12/22/20 15:58 Plt Count 264 K/mm3 (140-440) 12/22/20 15:58 Lymph % (Auto) 13.9 % (13.4-35.0) 12/22/20 15:58 [place] % (Auto) 6.6 % (0.0-7.3) 12/22/20 15:58 Eos % (Auto) 0.5 % (0.0-4.3) 12/22/20 15:58 Baso % (Auto) 0.8 % (0.0-1.8) 12/22/20 15:58 Lymph # (Auto) 0.6 K/mm3 (1.2-5.4) L 12/22/20 15:58 [place] # (Auto) 0.3 K/mm3 (0.0-0.8) 12/22/20 15:58 Eos # (Auto) 0.0 K/mm3 (0.0-0.4) 12/22/20 15:58 Baso # (Auto) 0.0 K/mm3 (0.0-0.1) 12/22/20 15:58 Seg Neutrophils % 78.2 % (40.0-70.0) H 12/22/20 15:58 Seg Neutrophils # 3.5 K/mm3 (1.8-7.7) 12/22/20 15:58 Sodium 141 mmol/L (137-145) 12/22/20 15:58 Potassium 4.2 mmol/L (3.6-5.0) 12/22/20 15:58 Chloride 103.7 mmol/L (98-107) 12/22/20 15:58 Carbon Dioxide 26 mmol/L (22-30) 12/22/20 15:58 Anion Gap 16 mmol/L 12/22/20 15:58 BUN 8 mg/dL (9-20) L 12/22/20 15:58 Creatinine 0.7 mg/dL (0.8-1.3) L 12/22/20 15:58 Estimated GFR > 60 ml/min 12/22/20 15:58 BUN/Creatinine Ratio 11 % 12/22/20 15:58 Glucose 81 mg/dL (75-100) 12/22/20 15:58 Calcium 8.7 mg/dL (8.4-10.2) 12/22/20 15:58 Total Bilirubin 0.80 mg/dL (0.1-1.2) 12/22/20 15:58 AST 24 units/L (5-40) 12/22/20 15:58 ALT 11 units/L (7-56) 12/22/20 15:58 Alkaline Phosphatase 60 units/L (35-129) 12/22/20 15:58 Total Protein 6.4 g/dL (6.3-8.2) 12/22/20 15:58 Albumin 3.5 g/dL (3.9-5) L 12/22/20 15:58 Albumin/Globulin Ratio 1.2 % 12/22/20 15:58 - Imaging and Cardiology Imaging and Cardiology: Right wrist x-ray Mildly comminuted fracture distal metadiaphyseal junction of the ulna Assessment and Plan Advance Directives: Yes (Full code) VTE prophylaxis?: Chemical Plan of care discussed with patient/family: Yes - Patient Problems (1) Open fracture of distal end of right ulna Current Visit: Yes Status: Acute Qualifiers: Encounter type: initial encounter Open fracture type: open type I or II Fracture morphology: unspecified fracture morphology Qualified Code(s): S52.601B - Unspecified fracture of lower end of right ulna, initial encounter for open fracture type I or II Plan to address problem: Orthopedic consult requested Splint applied in the emergency room (2) Dog bite Current Visit: Yes Status: Acute Qualifiers: Encounter type: initial encounter Qualified Code(s): W54.0XXA - Bitten by dog, initial encounter Plan to address problem: Patient initiated on IV Zosyn ID consult requested (3) Coronary artery disease Current Visit: No Status: Chronic Qualifiers: Coronary Disease-Associated Artery/Lesion type: [place] artery [place] vs. tr ansplanted heart: [place] heart Plan to address problem: Continue aspirin and isosorbide mono nitrate (4) Hypertension Current Visit: No Status: Chronic Qualifiers: Hypertension type: essential hypertension Qualified Code(s): I10 - Esse ntial (primary) hypertension Plan to address problem: Continue antihypertensives and adjust medications (5) Hyperlipidemia Current Visit: Yes Status: Chronic Plan to address problem: Continue statins (6) Anemia Current Visit: No Status: Chronic Qualifiers: Anemia type: unspecified type Qualified Code(s): D64.9 - Anemia, unspecified Plan to address problem: Anemia work-up (7) GERD (gastroesophageal reflux disease) Current Visit: Yes Status: Chronic Qualifiers: Esophagitis presence: without esophagitis Qualified Code(s): K21.9 - Gastro-esophageal reflux disease without esophagitis Plan to address problem: On PPIs (8) DVT prophylaxis Current Visit: No Status: Acute Plan to address problem: On heparin and GI prophylaxis
[2020-12-23] MEDS ORDERED: CYCLOBENZAPRINE 10 MG TAB PO PRN (00:27)
[2020-12-23] MEDS ORDERED: PIPERACIL/TAZOBACTA 4.5/NS 100 4.5 GM/100 ML VIAL IV SCH (01:00)
[2020-12-23] MEDS: ACETAMINOPHEN 500 MG TAB PO SCH ×2 (02:04→06:37)
[2020-12-23] MEDS: RANOLAZINE ER 500 MG TAB 12HR PO SCH ×2 (02:05→11:55)
[2020-12-23] MEDS ORDERED: PANTOPRAZOLE 40 MG TAB PO SCH (07:30)
[2020-12-23] MEDS ORDERED: carvediloL 6.25 MG TAB PO SCH (08:00)
[2020-12-23] MEDS ORDERED: LISINOPRIL 40 MG TAB PO SCH (08:00)
[2020-12-23] MEDS ORDERED: FERROUS SULFATE 325 MG TAB PO SCH (08:00)
[2020-12-23 09:23] LABS: % Iron Saturation 22.95 %
[2020-12-23 09:41] VITALS: BP 126/75
[2020-12-23] MEDS ORDERED: ASPIRIN EC 81 MG TAB PO SCH (10:00)
--- NOTE | 2020-12-23 12:58 | Consultation ---
History of Present Illness - Reason for Consult Consult date: 12/23/20 Dog bite Requesting physician: ANDI VENTURA - History of Present Illness The patient is a 69-year-old male with hypertension, CAD, GERD was admitted to the hospital after a dog bite to the right wrist, x-ray in the ER revealed a right distal ulnar fracture. Infectious diseases was consulted for additional evaluation. While in the ER, patient received tetanus, rabies vaccine as well a s rabies immunoglobulin. Otherwise afebrile. Denies any new complaints. Is currently on IV Zosyn, no issues. Review of Systems: General: no fevers,chills or rigors HEENT: no new visual disturbance Respiratory: No cough, sputum, hemoptysis or shortness of breath Cardiovascular: No chest pain, syncope Gastrointestinal: No nausea, vomiting or diarrhea Genitourinary: No dysuria or hematuria Musculoskeletal: No new or worsening neck pain or back pain Neurologic: No headaches, seizures Hematologic: No easy bruising or bleeding Endocrine: No night sweats or acute weight loss Skin: negative for rash, jaundice Psychiatric: No suicidal or homicidal ideation Medications and Allergies Allergies Allergy/AdvReac Type Severity Reaction Status Date / Time No Known Allergies Allergy Verified 10/20/20 15:56 Home Medications Medication Instructions Recorded Confirmed Last Taken Type Acetaminophen [Acetaminophen TAB] 500 mg PO Q6HR #30 tablet 03/20/17 05/18/20 Unknown Rx AtorvaSTATin [Lipitor] 40 mg PO QHS #30 tablet 03/26/20 05/18/20 05/17/20 Rx HYDROcodone/APAP 5-325 [[place] 1 each PO Q6HR PRN #20 tablet 03/26/20 05/18/20 Unknown Rx 5-325 mg TAB] ISOSORBIDE MONOnitrate [Imdur ER] 30 mg PO QDAY #30 tablet 03/26/20 05/18/20 05/17/20 Rx carvediloL [Coreg] 6.25 mg PO BID #60 03/26/20 05/18/20 05/17/20 Rx lisinopriL [Zestril TAB] 40 mg PO QDAY #30 tablet 03/26/20 05/18/20 05/17/20 Rx methOCARBAMOL [Robaxin TAB] 500 mg PO Q8HR PRN #90 tablet 08/08/20 09/30/20 Unknown Rx Ferrous Sulfate [Feosol 325 MG tab] 325 mg PO BID #60 tablet 04/01/20 05/18/20 05/17/20 Rx Pantoprazole [Protonix TAB] 40 mg PO QDAY #30 tablet. 04/01/20 05/18/20 Unknown Rx Ranolazine ER [Ranexa ER] 500 mg PO BID #60 tablet 04/01/20 05/18/20 Unknown Rx Aspirin [Adult Aspirin] 81 mg PO DAILY 05/18/20 05/18/20 05/17/20 History Clopidogrel [Plavix] 75 mg PO QDAY 05/18/20 05/18/20 05/17/20 History Cyclobenzaprine HCl [Flexeril 5 MG 5 mg PO TID PRN #20 tab 10/01/20 Unknown Rx TAB] oxyCODONE /ACETAMINOPHEN [Percocet 1 tab PO Q6HR PRN #15 tablet 10/01/20 Unknown Rx 5/325] predniSONE [Deltasone] 20 mg PO DAILY #5 tablet 10/20/20 Unknown Rx Active Meds: Active Medications Acetaminophen (Acetaminophen 500 Mg Tab) 500 mg PO Q6HR [facility] Last Admin: 12/23/20 06:37 Dose: 500 mg Documented by: Aspirin (Aspirin Ec 81 Mg Tab) 81 mg PO DAILY [facility] Atorvastatin Calcium (Atorvastatin 40 Mg Tab) 40 mg PO QHS [facility] Carvedilol (Carvedilol 6.25 Mg Tab) 6.25 mg PO BID [facility] Cyclobenzaprine HCl (Cyclobenzaprine 10 Mg Tab) 5 mg PO TID PRN PRN Reason: Muscle Spasm Ferrous Sulfate (Ferrous Sulfate 325 Mg Tab) 325 mg PO BID [facility] Piperacillin Sod/Tazobactam Sod (Zosyn/Ns 4.5gm/100ml) 4.5 gm in 100 mls @ 200 mls/hr IV Q8H [facility]; Protocol Last Admin: 12/23/20 02:04 Dose: 200 mls/hr Documented by: Isosorbide Mononitrate (Isosorbide Mononitrate Er 30 Mg Tab) 30 mg PO QDAY [facility] Lisinopril (Lisinopril 40 Mg Tab) 40 mg PO QDAY [facility] Methocarbamol (Methocarbamol 500 Mg Tab) 500 mg PO Q8HR PRN PRN Reason: Muscle Spasm Oxycodone/Acetaminophen (Oxycodone /Acetaminophen 5-325mg Tab) 1 tab PO Q6HR PRN PRN Reason: Pain, Moderate (4-6) Pantoprazole Sodium (Pantoprazole 40 Mg Tab) 40 mg PO QDAC [facility] Last Admin: 12/23/20 06:41 Dose: 40 mg Documented by: Ranolazine (Ranolazine Er 500 Mg Tab 12hr) 500 mg PO BID [facility] Last Admin: 12/23/20 02:05 Dose: 500 mg Documented by: Physical Examination - Physical Exam Narrative exam: Physical Exam: Constitutional: Alert, cooperative. No acute distress Head, Ears, Nose: Normocephalic, atraumatic. External ears, nose normal Eyes: Conjunctivae/corneas clear. No icterus. No ptosis. Neck: Supple, no meningeal signs Cardiovascular: S1, S2 normal. Respiratory: Good air entry, clear to auscultation bilaterally GI: Soft, non-tender; bowel sounds normal. No peritoneal signs Musculoskeletal: Right wrist in splint/dressing, fingers with swelling Skin: No rash or abscess Hem/Lymphatic: No palpable cervical or supraclavicular nodes. No lymphangitis Psych: Mood ok. Affect normal Neurological: Awake, alert, oriented. No gross abnormality - Constitutional Vitals: Vital Signs Temp Pulse Resp BP Pulse Ox 98.2 F 64 16 126/75 97 12/23/20 08:36 12/23/20 08:36 12/23/20 08:36 12/23/20 08:36 12/23/20 08:36 Temperature -Last 24 Hours Temperature 98.2 F Temperature 98.6 F Temperature 99.5 F Temperature 98.7 F Temperature 99 F Results - Labs CBC & Chem 7: 12/22/20 15:58 12/22/20 15:58 Labs: Abnormal lab results 12/22/20 12/22/20 12/23/20 Range/Units 15:58 15:58 08:05 WBC 4.4 L (4.5-11.0) K/mm3 RDW 15.8 H (13.2-15.2) % Lymph # (Auto) 0.6 L (1.2-5.4) K/mm3 Seg Neutrophils % 78.2 H (40.0-70.0) % BUN 8 L (9-20) mg/dL Creatinine 0.7 L (0.8-1.3) mg/dL Iron 42 L (49-181) ug/dL TIBC 183 L (250-450) mcg/dL Transferrin 161 L (180-329) mg/dl Albumin 3.5 L (3.9-5) g/dL Assessment and Plan Cultures: None A/P: 69-year-old male with hypertension, CAD, GERD: #Right wrist dog bite: swelling +. Complicated by right distal ulnar fracture. Received tetanus, rabies vaccine as well as rabies immunoglobulin. Animal control was already notified by ER. Orthopedics following. Recs: Zosyn switched to IV Unasyn 3 gm q6 hrs, when discharged, convert to PO augment in 875 mg BID + PO doxycycline 100 mg BID, complete total 7 days f/u health department to complete remainder of rabies shots (day 7 and 14). Day 3 order placed here in case he remains inpatient Jay Motley MD, FACP [facility] O: [phone] F: [phone]
[2020-12-23] MEDS ORDERED: AMPICILLIN/SULBACTA 3GM/100ML 3 GM/100 ML BAG IV SCH (13:00)
--- NOTE | 2020-12-23 13:10 | Consultation ---
History of Present Illness - [facility] Consult date: 12/23/20 Consult reason: fracture History of present illness: 75 y/o male with c/o right wrist pain after attack by pitbull on day of admission, plain xrays revealed fx of distal ulna minimal displacement...hx of DM and CAD... Medications and Allergies Allergies Allergy/AdvReac Type Severity Reaction Status Date / Time No Known Allergies Allergy Verified 10/20/20 15:56 Home Medications Medication Instructions Recorded Confirmed Last Taken Type Acetaminophen [Acetaminophen TAB] 500 mg PO Q6HR #30 tablet 03/20/17 05/18/20 Unknown Rx AtorvaSTATin [Lipitor] 40 mg PO QHS #30 tablet 03/26/20 05/18/20 05/17/20 Rx HYDROcodone/APAP 5-325 [[place] 1 each PO Q6HR PRN #20 tablet 03/26/20 05/18/20 Unknown Rx 5-325 mg TAB] ISOSORBIDE MONOnitrate [Imdur ER] 30 mg PO QDAY #30 tablet 03/26/20 05/18/20 05/17/20 Rx carvediloL [Coreg] 6.25 mg PO BID #60 03/26/20 05/18/20 05/17/20 Rx lisinopriL [Zestril TAB] 40 mg PO QDAY #30 tablet 03/26/20 05/18/20 05/17/20 Rx methOCARBAMOL [Robaxin TAB] 500 mg PO Q8HR PRN #90 tablet 03/26/20 05/18/20 Unknown Rx Ferrous Sulfate [Feosol 325 MG tab] 325 mg PO BID #60 tablet 04/01/20 05/18/20 05/17/20 Rx Pantoprazole [Protonix TAB] 40 mg PO QDAY #30 tablet. 04/01/20 05/18/20 Unknown Rx Ranolazine ER [Ranexa ER] 500 mg PO BID #60 tablet 04/01/20 05/18/20 Unknown Rx Aspirin [Adult Aspirin] 81 mg PO DAILY 05/18/20 05/18/20 05/17/20 History Clopidogrel [Plavix] 75 mg PO QDAY 05/18/20 05/18/20 05/17/20 History Cyclobenzaprine HCl [Flexeril 5 MG 5 mg PO TID PRN #20 tab 10/01/20 Unknown Rx TAB] oxyCODONE /ACETAMINOPHEN [Percocet 1 tab PO Q6HR PRN #15 tablet 10/01/20 Unknown Rx 5/325] predniSONE [Deltasone] 20 mg PO DAILY #5 tablet 10/20/20 Unknown Rx Active Meds: Active Medications Acetaminophen (Acetaminophen 500 Mg Tab) 500 mg PO Q6HR [facility] Last Admin: 12/23/20 06:37 Dose: 500 mg Documented by: Aspirin (Aspirin Ec 81 Mg Tab) 81 mg PO DAILY [facility] Atorvastatin Calcium (Atorvastatin 40 Mg Tab) 40 mg PO QHS [facility] Carvedilol (Carvedilol 6.25 Mg Tab) 6.25 mg PO BID [facility] Cyclobenzaprine HCl (Cyclobenzaprine 10 Mg Tab) 5 mg PO TID PRN PRN Reason: Muscle Spasm Ferrous Sulfate (Ferrous Sulfate 325 Mg Tab) 325 mg PO BID [facility] Ampicillin Sodium/Sulbactam Sodium (Unasyn/Ns 3 Gm/100 Ml) 3 gm in 100 mls @ 200 mls/hr IV Q6H [facility]; Protocol Isosorbide Mononitrate (Isosorbide Mononitrate Er 30 Mg Tab) 30 mg PO QDAY [facility] Lisinopril (Lisinopril 40 Mg Tab) 40 mg PO QDAY [facility] Methocarbamol (Methocarbamol 500 Mg Tab) 500 mg PO Q8HR PRN PRN Reason: Muscle Spasm Oxycodone/Acetaminophen (Oxycodone /Acetaminophen 5-325mg Tab) 1 tab PO Q6HR PRN PRN Reason: Pain, Moderate (4-6) Pantoprazole Sodium (Pantoprazole 40 Mg Tab) 40 mg PO QDAC [facility] Last Admin: 12/23/20 06:41 Dose: 40 mg Documented by: Rabies Vaccine Human Diploid Cell (Rabies Vaccine, Human Diploid/Pf 2.5 Unit/Ml Vial) 2.5 unit IM .ONCE ONE Stop: 12/25/20 13:01 Ranolazine (Ranolazine Er 500 Mg Tab 12hr) 500 mg PO BID [facility] Last Admin: 12/23/20 02:05 Dose: 500 mg Documented by: Physical Examination - Physical exam Narrative exam: right wrist - puncture wds, moderate swelling, no sign of infection, good cap refill Eyes: PERRL ENT: Positive: clear oral mucosa Respiratory effort: normal Respiratory: bilateral: CTA Rhythm: regular Heart Sounds: Positive: S1 & S2 General gastrointestinal: Positive: soft, non-tender, non-distended, normal bowel sounds Integumentary: clear, warm, dry Neurologic: Positive: CNII-XII intact, moves all extremities, gait normal. Negative: focal deficits Assessment and Plan Dog bite injury with fx right distal ulna Patient has received IVAB's, and tetnus up to date, would recommend switch to po antibiotics, may dc to home today, return to my office in 1 wk for f/u visit
--- NOTE | 2020-12-23 14:57 | Discharge Summary ---
Providers - Providers Date of Admission: 12/22/20 21:02 Date of discharge: 12/23/20 Attending physician: RAMU CLARK MD 12/22/20 19:17 Consult to Physician [CONS] Stat Comment: Consulting Provider: CADE GARAY Physician Instructions: Reason For Exam: Open fracture 12/22/20 19:20 Consult to Physician [CONS] Stat Comment: Consulting Provider: CADE GARAY Physician Instructions: Reason For Exam: open fracture 12/23/20 07:30 Consult to Physician [CONS] Routine Comment: Consulting Provider: REINIER COOK Physician Instructions: Reason For Exam: Dog bite to right wrist Primary care physician: UNIFORM CAP OPERATOR Hospitalization Reason for admission: Dog Bite/Right Ulnar Fracture Condition: Stable Hospital course: Assessment and Plan Pt seen by ortho, can be discharged home w/ f/u in office. ID recommended ABX, pt to f[facility]u at [facility] for day 7 and day 14 rabies vaccination. Advance Directives: Yes (Full code) VTE prophylaxis?: Chemical Plan of care discussed with patient/family: Yes - Patient Problems (1) Open fracture of distal end of right ulna Current Visit: Yes Status: Acute Qualifiers: Encounter type: initial encounter Open fracture type: open type I or II Fracture morphology: unspecified fracture morphology Qualified Code(s): S52.601B - Unspecified fracture of lower end of right ulna, initial encounter for open fracture type I or II Plan to address problem: Orthopedic consult requested Splint applied in the emergency room (2) Dog bite Current Visit: Yes Status: Acute Qualifiers: Encounter type: initial encounter Qualified Code(s): W54.0XXA - Bitten by dog, initial encounter Plan to address problem: Patient initiated on IV Zosyn ID consult requested (3) Coronary artery disease Current Visit: No Status: Chronic Qualifiers: Coronary Disease-Associated Artery/Lesion type: [place] artery [place] vs. transplanted heart: [place] heart Plan to address problem: Continue aspirin and isosorbide mono nitrate (4) Hypertension Current Visit: No Status: Chronic Qualifiers: Hypertension type: essential hypertension Qualified Code(s): I10 - Essential (primary) hypertension Plan to address problem: Continue antihypertensives and adjust medications (5) Hyperlipidemia Current Visit: Yes Status: Chronic Plan to address problem: Continue statins (6) Anemia Current Visit: No Status: Chronic Qualifiers: Anemia type: unspecified type Qualified Code(s): D64.9 - Anemia, unspecified Plan to address problem: Anemia work-up (7) GERD (gastroesophageal reflux disease) Current Visit: Yes Status: Chronic Qualifiers: Esophagitis presence: without esophagitis Qualified Code(s): K21.9 - Gastro-esophageal reflux disease without esophagitis Plan to address problem: On PPIs Disposition: TO HOME OR SELFCARE Final Discharge Diagnosis (Prints w/discharge instructions): Dog bite. Open fracture of distal end of right ulna. Coronary artery disease. Hypertension. Hyperlipidemia. GERD. Anemia Time spent for discharge: 35 min Core Measure Documentation - Palliative Care Palliative Care/ Comfort Measures: Not Applicable - Core Measures Any of the following diagnoses?: none Exam - Physical Exam Narrative exam: General appearance no acute distress, well-nourished EENT: PERRL, EOM intact, hearing intact, clear oral mucosa, dentition normal Neck: Present: supple, normal ROM Respiratory: bilateral: CTA, negative: rales, rhonchi, wheezing Cardiovascular: Regular rate/rhythm, Normal S1 & S2. No gallop, rub Extremities: right wrist in splint Abdominal: soft, non-tender, non-distended, normal bowel sounds Integumentary: Present: clear, warm, dry Psychiatric: appropriate mood/affect, intact judgment & insight Neurologic: CNII-XII intact, moves all extremities - Constitutional Vitals: Temp Pulse Resp BP Pulse Ox 98.2 F 64 16 126/75 97 12/23/20 08:36 12/23/20 08:36 12/23/20 08:36 12/23/20 08:36 12/23/20 08:36 Plan Activity: no restrictions Diet: low salt Follow up with: CADE GARAY MD [Staff Physician] - 7 Days PRIMARY CARE, [Primary Care Provider] - 7 Days (Please go to the [facility] to receive completion of your rabies vaccine. You need 3 doses. You received your first dose on 12/22/20. You need a dose on day 7 and day 14 from your first dose. You also received the rabies immunoglobulin on 12/22/20) Prescriptions: Amoxicillin/Potassium Clav [Augmentin 875-125 Tablet] 1 each PO BID #14 tablet RX: Doxycycline Monohydrate 100 mg PO BID #14 tablet RX: oxyCODONE /ACETAMINOPHEN [Percocet 5/325 mg] 1 tab PO Q6HR PRN #15 tablet PRN Reason: Pain
[2020-12-25] MEDS ORDERED: RABIES VACCINE, HUMAN DIPLOID/PF 2.5 UNIT/ML VIAL IM ONE (13:00)
== END 2020-12-23 18:00 | disposition home or self-care (01) ==
LOC: ED 13:53 → INTOOBSV 21:02 → 3B 21:02
PROVIDERS: ADMIT Internal Medicine; ATTEND Family Medicine
DX: S52.601B Unspecified fracture of lower end of right ulna, initial encounter for open fracture type I or II (principal); S61.551A Open bite of right wrist, initial encounter; I10 Essential (primary) hypertension; I25.10 Atherosclerotic heart disease of native coronary artery without angina pectoris; D64.9 Anemia, unspecified; K21.9 Gastro-esophageal reflux disease without esophagitis; E78.5 Hyperlipidemia, unspecified; M19.90 Unspecified osteoarthritis, unspecified site; M54.9 Dorsalgia, unspecified; G89.29 Other chronic pain; Z98.890 Other specified postprocedural states; Z79.899 Other long term (current) drug therapy; Z23 Encounter for immunization; Z86.73 Personal history of transient ischemic attack (TIA), and cerebral infarction without residual deficits; Z79.82 Long term (current) use of aspirin; W54.0XXA Bitten by dog, initial encounter; Y92.89 Other specified places as the place of occurrence of the external cause; Y93.89 Activity, other specified; Y99.8 Other external cause status
CPT/HCPCS: 36415; 73110; 80053; 82607; 82747; 83550; 85025; 90375; 90471; 90472; 90675; 90715; 96365; 96372; 96376; 99284; G0378; J2543; 96375

== ENCOUNTER 2021-01-03 10:13 | Emergency (ER) | payer MEDICARE | END 2021-01-03 21:47 | disposition left against medical advice (07) | LOC: ED 10:13 ==

== ENCOUNTER 2021-01-09 09:14 | Emergency (ER) | payer MEDICARE ==
[2021-01-09 09:22] VITALS: BP 154/93
--- NOTE | 2021-01-09 12:03 | Emergency Department Report ---
Chief Complaint: Extremity Injury, Upper Stated Complaint: ARM PAIN Time Seen by Provider: 01/09/21 11:31 - HPI History of Present Illness: This is a 75-year-old male who presents to the ED wanting splint removal. Patient states he has not followed up with the orthopedic yet. Patient denies any reinjuring of the right hand. Patient denies any other medical problems or complaints stating that he was told to return to the ED for removal of the splint. - ROS Review of Systems: As noted in HPI - Exam Vital Signs: Vital Signs 01/09/21 09:21 Temperature 98.1 F Pulse Rate 63 Respiratory 20 Rate Blood Pressure 154/93 O2 Sat by Pulse 99 Oximetry Physical Exam: GENERAL: Alert and oriented x3, no apparent distress, Normal Gait, atraumatic. EXTREMITIES/MUSCULOSKELETAL: No cyanosis, clubbing, rash, lesions or edema. Full ROM bilaterally. UE/LE Pulses 2+ bilaterally. LE and UE 5+ strength bilaterally, cast noted on right arm. No neurovascular deficit. NEUROLOGIC: The patient is cooperative with no focal neurologic deficits. SKIN: Warm and dry, No lesions, No ulceration or induration present. MSE screening note: Focused history and physical exam performed. Due to findings the following was ordered: ED Medical Decision Making - Medical Decision Making 75-year-old male presented for splint removal. Discussed with patient he needs to keep follow-up with the orthopedic surgeon for her assessment and removal. Referrals given to patient. Patient was in no acute distress throughout ED stay. Patient shows no neurovascular deficit. Patient understands that he needs to follow-up with the orthopedic surgeon office. ED Disposition for MSE Clinical Impression: Encounter for cast removal Disposition: - TO HOME OR SELFCARE Is pt being admited?: No Does the pt Need Aspirin: No Condition: Stable Instructions: Cast or Splint Care, Adult, [id number], How To Use a Sling, [id number] Referrals: CADE GARAY MD [Staff Physician] - 3-5 Days [facility] [Provider Group] - 3-5 Days Forms: Work/School Release Form(ED) Time of Disposition: 11:57
--- NOTE | 2021-01-10 10:38 | Electrocardiograph Report ---
[facility] Test Date: 2021-01-09 Test Time: 09:27:26 Pat Name: LI BOLAND Department: Room: Gender: M Order Fulfillment Specialist: GANESH : 1945 Requested By: ASIF CAVAZOS Order Number: [id number] Reading MD: Naya Matthew Measurements Intervals [place] Rate: 132 P: 73 AL: 128 QRS: 87 QRSD: 91 T: -26 QT: 314 QTc: 465 Interpretive Statements Sinus tachycardia Probable left atrial enlargement Rightward axis deviation No previous ECG available for comparison Electronically Signed On 01-10-2021 10:37:47 EDT by Naya Matthew
== END 2021-01-09 12:21 | disposition home or self-care (01) ==
LOC: ED 09:14
DX: Z46.89 Encounter for fitting and adjustment of other specified devices (principal)
CPT/HCPCS: 93005; 99282

== ENCOUNTER 2021-02-07 17:47 | Emergency (ER) | payer MEDICARE ==
[2021-02-07] MEDS ORDERED: ACETAMINOPHEN 500 MG TAB PO ONE (20:49)
[2021-02-07] MEDS ORDERED: IBUPROFEN 600 MG TAB PO ONE (20:49)
--- NOTE | 2021-02-07 21:41 | Emergency Department Report ---
ED Extremity Problem HPI - General Chief complaint: Skin/Abscess/Foreign Body Stated complaint: SWOLLEN RIGHT HAND Source: patient Mode of arrival: Ambulatory Limitations: No Limitations - History of Present Illness Initial comments: Patient is a 75-year-old -[place] male with a history of hypertension, CVA, CAD s/p AMI, chronic osteoarthritis, chronic back pain and GERD who presents to the ED with complaint of acute onset persistent right hand and wrist pain with mild swelling for the last 6 weeks. Patient states that he had a dog bite on this right wrist over 6 years ago and completed prophylactic oral antibiotics. Patient states that the right wrist joint pain has been persistent and worse especially in the last 1 week. Patient states that he has not taken any medication at home. Patient denies fall, traumatic injury, dizziness, fever, chills, nausea, vomiting, chest pain, shortness of breath, neck pain, back pain, heavy lifting or change in vision. MD Complaint: extremity pain (right wrist and hand swelling and pain), extremity swelling (right wrist and hand), joint swelling (right wrist and hand) -: Sudden, week(s) (6) Location: right, upper extremity (Right hand and wrist) History of Same: Yes -: Yes arthralgia, No fever, No associated dyspnea Radiation: none Severity scale (0 -10): 6 Quality: aching, sharp Consistency: constant Improves with: nothing Worsens with: weight bearing, walking, exertion, palpation Associated Symptoms: denies other symptoms, arthralgias. denies: chest pain, shortness of breath, fever, myalgias, rash - Related Data Home Medications Medication Instructions Recorded Confirmed Last Taken Aspirin [Adult Aspirin] 81 mg PO DAILY 05/18/20 05/18/20 05/17/20 Clopidogrel [Plavix] 75 mg PO QDAY 05/18/20 05/18/20 05/17/20 Previous Rx's Medication Instructions Recorded Last Taken Type Acetaminophen [Acetaminophen TAB] 500 mg PO Q6HR #30 tablet 03/20/17 Unknown Rx AtorvaSTATin [Lipitor] 40 mg PO QHS #30 tablet 03/26/20 05/17/20 Rx HYDROcodone/APAP 5-325 [[place] 1 each PO Q6HR PRN #20 tablet 03/26/20 Unknown Rx 5-325 mg TAB] ISOSORBIDE MONOnitrate [Imdur ER] 30 mg PO QDAY #30 tablet 03/26/20 05/17/20 Rx carvediloL [Coreg] 6.25 mg PO BID #60 03/26/20 05/17/20 Rx lisinopriL [Zestril TAB] 40 mg PO QDAY #30 tablet 03/26/20 05/17/20 Rx methOCARBAMOL [Robaxin TAB] 500 mg PO Q8HR PRN #90 tablet 03/26/20 Unknown Rx Ferrous Sulfate [Feosol 325 MG tab] 325 mg PO BID #60 tablet 04/01/20 05/17/20 Rx Pantoprazole [Protonix TAB] 40 mg PO QDAY #30 tablet. 04/01/20 Unknown Rx Ranolazine ER [Ranexa ER] 500 mg PO BID #60 tablet 04/01/20 Unknown Rx Cyclobenzaprine HCl [Flexeril 5 MG 5 mg PO TID PRN #20 tab 10/01/20 Unknown Rx TAB] predniSONE [Deltasone] 20 mg PO DAILY #5 tablet 10/20/20 Unknown Rx Amoxicillin/Potassium Clav 1 each PO BID #14 tablet 12/23/20 Unknown Rx [Augmentin 875-125 Tablet] Doxycycline Monohydrate 100 mg PO BID #14 tablet 12/23/20 Unknown Rx oxyCODONE /ACETAMINOPHEN [Percocet 1 tab PO Q6HR PRN #15 tablet 12/23/20 Unknown Rx 5/325 mg] Acetaminophen [Tylenol] 500 mg PO Q6HR PRN #30 tablet 02/07/21 Unknown Rx traMADoL [Ultram] 50 mg PO Q6HR PRN #10 tablet 02/07/21 Unknown Rx Allergies Allergy/AdvReac Type Severity Reaction Status Date / Time No Known Allergies Allergy Verified 01/09/21 09:17 ED Review of Systems ROS: Stated complaint: SWOLLEN RIGHT HAND Other details as noted in HPI Constitutional: denies: chills, fever Eyes: denies: eye pain, eye discharge, vision change ENT: denies: ear pain, throat pain Respiratory: denies: cough, shortness of breath, wheezing Cardiovascular: denies: chest pain, palpitations Endocrine: no symptoms reported Gastrointestinal: denies: abdominal pain, nausea, diarrhea Genitourinary: denies: urgency, dysuria Musculoskeletal: joint swelling (Right wrist and hand mild swelling), arthralgia (Right wrist and hand pain). denies: back pain Skin: denies: rash, lesions Neurological: denies: headache, weakness, paresthesias Psychiatric: denies: anxiety, depression Hematological/Lymphatic: denies: easy bleeding, easy bruising ED Past Medical Hx - Past Medical History Previous Medical History?: Yes Hx Hypertension: Yes Hx CVA: Yes Hx Heart Attack/AMI: Yes Hx Diabetes: (denies) Hx GERD: Yes Hx Liver Disease: No Hx Renal Disease: No Hx Sickle Cell Disease: No Hx Arthritis: Yes Hx Seizures: No Hx Asthma: No Hx COPD: No Hx HIV: No Additional medical history: chronic back pain - Surgical History Hx Pacemaker: No Hx Internal Defibrillator: No Additional Surgical History: back surgery. NECK SURGERY, angioplasty - Social History Smoking Status: Current Every Day Smoker Substance Use Type: None - Medications Home Medications: Home Medications Medication Instructions Recorded Confirmed Last Taken Type Acetaminophen [Acetaminophen TAB] 500 mg PO Q6HR #30 tablet 03/20/17 05/18/20 Unknown Rx AtorvaSTATin [Lipitor] 40 mg PO QHS #30 tablet 03/26/20 05/18/20 05/17/20 Rx HYDROcodone/APAP 5-325 [[place] 1 each PO Q6HR PRN #20 tablet 03/26/20 05/18/20 Unknown Rx 5-325 mg TAB] ISOSORBIDE MONOnitrate [Imdur ER] 30 mg PO QDAY #30 tablet 03/26/20 05/18/20 05/17/20 Rx carvediloL [Coreg] 6.25 mg PO BID #60 03/26/20 05/18/20 05/17/20 Rx lisinopriL [Zestril TAB] 40 mg PO QDAY #30 tablet 03/26/20 05/18/20 05/17/20 Rx methOCARBAMOL [Robaxin TAB] 500 mg PO Q8HR PRN #90 tablet 03/26/20 05/18/20 Unknown Rx Ferrous Sulfate [Feosol 325 MG tab] 325 mg PO BID #60 tablet 04/01/20 05/18/20 05/17/20 Rx Pantoprazole [Protonix TAB] 40 mg PO QDAY #30 tablet. 04/01/20 05/18/20 Unknown Rx Ranolazine ER [Ranexa ER] 500 mg PO BID #60 tablet 04/01/20 05/18/20 Unknown Rx Aspirin [Adult Aspirin] 81 mg PO DAILY 05/18/20 05/18/20 05/17/20 History Clopidogrel [Plavix] 75 mg PO QDAY 05/18/20 05/18/20 05/17/20 History Cyclobenzaprine HCl [Flexeril 5 MG 5 mg PO TID PRN #20 tab 10/01/20 Unknown Rx TAB] predniSONE [Deltasone] 20 mg PO DAILY #5 tablet 10/20/20 Unknown Rx Amoxicillin/Potassium Clav 1 each PO BID #14 tablet 12/23/20 Unknown Rx [Augmentin 875-125 Tablet] Doxycycline Monohydrate 100 mg PO BID #14 tablet 12/23/20 Unknown Rx oxyCODONE /ACETAMINOPHEN [Percocet 1 tab PO Q6HR PRN #15 tablet 12/23/20 Unknown Rx 5/325 mg] Acetaminophen [Tylenol] 500 mg PO Q6HR PRN #30 tablet 02/07/21 Unknown Rx traMADoL [Ultram] 50 mg PO Q6HR PRN #10 tablet 02/07/21 Unknown Rx ED Physical Exam - General Limitations: No Limitations General appearance: alert, in no apparent distress - Head Head exam: Present: atraumatic, normocephalic, normal inspection - Eye Eye exam: Present: normal appearance, PERRL, EOMI Pupils: Present: normal accommodation - ENT ENT exam: Present: normal exam, normal orophraynx, mucous membranes moist, TM's normal bilaterally, normal external ear exam - Neck Neck exam: Present: normal inspection, full ROM - Respiratory Respiratory exam: Present: normal lung sounds bilaterally. Absent: respiratory distress, wheezes, rales, rhonchi, chest wall tenderness, accessory muscle use, decreased breath sounds - Cardiovascular Cardiovascular Exam: Present: regular rate, normal rhythm, normal heart sounds. Absent: systolic murmur, diastolic murmur, rubs, gallop - GI/Abdominal GI/Abdominal exam: Present: soft, normal bowel sounds. Absent: tenderness, guarding, rebound, hyperactive bowel sounds - Extremities Exam Extremities exam: Present: normal inspection, full ROM, tenderness (Palpable right wrist and right hand mild tenderness with mild swelling), normal capillary refill, joint swelling (Mild right wrist and hand swelling). Absent: calf tenderness - Back Exam Back exam: Present: normal inspection, full ROM. Absent: tenderness, muscle spasm, paraspinal tenderness, vertebral tenderness - Neurological Exam Neurological exam: Present: alert, oriented X3, CN II-XII intact, normal gait, reflexes normal - Psychiatric Psychiatric exam: Present: normal affect, normal mood - Skin Skin exam: Present: warm, dry, intact, normal color. Absent: rash ED Course Vital Signs 02/07/21 02/07/21 18:34 20:57 Temperature 98.3 F Pulse Rate 64 Respiratory 18 18 Rate Blood Pressure 194/98 [Left] O2 Sat by Pulse 97 Oximetry ED Medical Decision Making - Medical Decision Making This is a 75-year-old -[place] male with a history of hypertension, CVA, CAD s/p AMI, chronic osteoarthritis, chronic back pain and GERD who presents to the ED with complaint of acute onset persistent right hand and wrist pain with mild swelling for the last 6 weeks. Patient states that he had a dog bite on this right wrist over 6 years ago and completed prophylactic oral antibiotics. Patient states that the right wrist joint pain has been persistent and worse especially in the last 1 week. Patient states that he has not taken any medication at home. In the ED, patient is alert and oriented x3 and is not in any distress but appears to be in pain. Physical exam is unremarkable except for palpable mild right hand and right wrist tenderness and mild swelling. There is no sign of infection. The right hand and wrist are neurovascularly intact. Patient was treated for pain in the ED and discharged home on pain medications and advised to follow-up with his primary care physician in 5 to 7 days for reevaluation. Patient is advised return to the ED immediately if symptoms get worse. - Differential Diagnosis Right wrist muscle strain; right hand muscle strain; osteoarthritis; Critical care attestation.: If time is entered above; I have spent that time in minutes in the direct care of this critically ill patient, excluding procedure time. ED Disposition Clinical Impression: Right wrist tendonitis, Strain of muscle of right hand Osteoarthritis of right hand Qualifiers: Osteoarthritis type: primary Qualified Code(s): M19.041 - Primary osteoarthritis, right hand Disposition: - TO HOME OR SELFCARE Is pt being admited?: No Does the pt Need Aspirin: No Condition: Stable Instructions: Muscle Strain, Ssvq-[id number]-Yohf, Arthritis, Ssff-pt-Whva, Tendinitis, Yvdr-us-[id number] Additional Instructions: Take medication with food, drink plenty of fluids and follow-up with your prima ry care physician in 7 to 10 days for reevaluation. Return to the ED immediately if symptoms get worse. Prescriptions: Acetaminophen [Tylenol] 500 mg PO Q6HR PRN #30 tablet PRN Reason: Pain , Severe (7-10) traMADoL [Ultram] 50 mg PO Q6HR PRN #10 tablet PRN Reason: Pain Referrals: [facility] [Provider Group] - 3-5 Days Time of Disposition: 21:58 Print Language: PERSIAN
[2021-02-07 22:27] VITALS: BP 151/93
== END 2021-02-07 22:15 | disposition home or self-care (01) ==
LOC: ED 17:47
DX: S66.911A Strain of unspecified muscle, fascia and tendon at wrist and hand level, right hand, initial encounter (principal); M19.041 Primary osteoarthritis, right hand; M77.8 Other enthesopathies, not elsewhere classified; I25.2 Old myocardial infarction; I10 Essential (primary) hypertension; K21.9 Gastro-esophageal reflux disease without esophagitis; M19.90 Unspecified osteoarthritis, unspecified site; I25.10 Atherosclerotic heart disease of native coronary artery without angina pectoris; F17.200 Nicotine dependence, unspecified, uncomplicated; Z79.899 Other long term (current) drug therapy; Z86.73 Personal history of transient ischemic attack (TIA), and cerebral infarction without residual deficits; Z98.890 Other specified postprocedural states; W54.0XXA Bitten by dog, initial encounter; Y93.89 Activity, other specified; Y92.89 Other specified places as the place of occurrence of the external cause; Y99.8 Other external cause status

== ENCOUNTER 2022-04-10 10:44 | Inpatient (IN) | payer MEDICARE ==
[2022-04-10] MEDS ORDERED: ASPIRIN 325 MG TAB PO ONE (11:52)
--- NOTE | 2022-04-10 11:55 | Emergency Department Report ---
ED Chest Pain HPI - General Chief Complaint: Chest Pain Stated Complaint: CHEST PAIN Time Seen by Provider: 04/10/22 11:12 Source: patient, EMS Mode of arrival: Stretcher Limitations: No Limitations - History of Present Illness Initial Comments: 76-year-old male with a past medical history of hypertension, CAD with stent placement, arthritis, herniated disc with chronic back pain, CVA with residual left-sided weakness presents to the hospital with complaints of intermittent chest pain since last night. Patient is accompanied by his home health aide at the bedside who is with patient during the daytime and states patient is at his baseline mental status. Patient is unable to characterize pain but states it is intermittent and worse with inspiration at times. Mild shortness of breath reported with vomiting today. Patient is compliant with his medications. Continue to smoke and denies home oxygen use. As per previous medical record patient had a cardiac cath. November 24, 2021 showing normal left ventricular systolic function with a small area of hypokinesis in the lateral wall. Otherwise patent stents noted in the mid LAD and mid marginal branch. Overall no obstructive lesions noted. Medical therapy recommended at that time - Related Data Home Medications Medication Instructions Recorded Confirmed Last Taken Clopidogrel [Plavix] 75 mg PO QDAY 05/18/20 11/22/21 11/21/21 Meloxicam [Mobic] 15 mg PO DAILY 11/22/21 11/22/21 11/21/21 amLODIPine [Norvasc] 10 mg PO DAILY 11/22/21 11/22/21 11/21/21 carvediloL [Coreg] 3.125 mg PO BID 11/22/21 11/22/21 11/21/21 Previous Rx's Medication Instructions Recorded Last Taken Type AtorvaSTATin [Lipitor] 40 mg PO QHS #30 tablet 03/26/20 11/21/21 Rx ISOSORBIDE MONOnitrate [Imdur ER] 30 mg PO QDAY #30 tablet 03/26/20 11/21/21 Rx lisinopriL [Zestril TAB] 40 mg PO QDAY #30 tablet 03/26/20 11/21/21 Rx Allergies Allergy/AdvReac Type Severity Reaction Status Date / Time No Known Allergies Allergy Verified 04/10/22 10:51 Heart Score - HEART Score History: Slightly suspicious EKG: Normal Age: > 65 Risk factors: > 3 risk factors or hx of atherosclerotic disease Troponin: < normal limit HEART Score: 4 - EKG Read Time Time EKG Completed: 11:00 EKG Read Time: 11:00 ED Review of Systems ROS: Stated complaint: CHEST PAIN Other details as noted in HPI Comment: All other systems reviewed and negative ED Past Medical Hx - Past Medical History Hx Hypertension: Yes Hx CVA: Yes Hx Heart Attack/AMI: Yes Hx Diabetes: (denies) Hx GERD: Yes Hx Liver Disease: No Hx Renal Disease: No Hx Sickle Cell Disease: No Hx Arthritis: Yes Hx Seizures: No Hx Asthma: No Hx COPD: No Hx HIV: No Additional medical history: chronic back pain - Surgical History Hx Pacemaker: No Hx Internal Defibrillator: No Additional Surgical History: back surgery. NECK SURGERY, angioplasty - Social History Smoking Status: Current Every Day Smoker - Medications Home Medications: Home Medications Medication Instructions Recorded Confirmed Last Taken Type AtorvaSTATin [Lipitor] 40 mg PO QHS #30 tablet 03/26/20 11/22/21 11/21/21 Rx ISOSORBIDE MONOnitrate [Imdur ER] 30 mg PO QDAY #30 tablet 03/26/20 11/22/21 11/21/21 Rx lisinopriL [Zestril TAB] 40 mg PO QDAY #30 tablet 03/26/20 11/22/21 11/21/21 Rx Clopidogrel [Plavix] 75 mg PO QDAY 05/18/20 11/22/21 11/21/21 History Meloxicam [Mobic] 15 mg PO DAILY 11/22/21 11/22/21 11/21/21 History amLODIPine [Norvasc] 10 mg PO DAILY 11/22/21 11/22/21 11/21/21 History carvediloL [Coreg] 3.125 mg PO BID 11/22/21 11/22/21 11/21/21 History ED Physical Exam - General Limitations: No Limitations - Other Other exam information: General: No acute distress Head: Atraumatic Eyes: normal appearance ENT: Moist mucous membranes Neck: Normal appearance, no midline tenderness Chest: Clear to auscultation bilaterally, no chest wall tenderness CV: Regular rate and rhythm Abdomen: Soft, normal bowel sounds, nontender, nondistended, no rebound or guarding Back: Normal inspection Extremity: Normal inspection, full range of motion, no calf tenderness or leg edema Neuro: Alert O x 2 not oriented to year, no facial asymmetry, speech clear, 4/5 left upper and lower extremity strength compared to 5/5 on the right chronic as per patient from previous CVA Psych: Appropriate behavior Skin: No rash, ED Course Vital Signs 04/10/22 04/10/22 04/10/22 12:11 12:30 12:53 Pulse Rate 86 88 90 Respiratory 19 33 H 20 Rate Blood Pressure 129/75 129/75 Blood Pressure 132/76 [Left] O2 Sat by Pulse 94 89 90 Oximetry 04/10/22 04/10/22 04/10/22 13:00 13:36 14:00 Pulse Rate 97 H 95 H 87 Respiratory 15 20 23 Rate Blood Pressure 132/76 136/80 136/88 Blood Pressure [Left] O2 Sat by Pulse 82 L 81 L 89 Oximetry 04/10/22 04/10/22 04/10/22 14:30 15:00 15:30 Pulse Rate 90 94 H 98 H Respiratory 18 22 19 Rate Blood Pressure 136/80 140/78 130/91 Blood Pressure [Left] O2 Sat by Pulse 95 88 89 Oximetry 04/10/22 04/10/22 04/10/22 16:00 16:30 17:00 Pulse Rate 86 87 88 Respiratory 22 35 H 29 H Rate Blood Pressure 150/85 131/83 131/83 Blood Pressure [Left] O2 Sat by Pulse 94 94 99 Oximetry 04/10/22 17:30 Pulse Rate 94 H Respiratory 33 H Rate Blood Pressure 139/68 Blood Pressure [Left] O2 Sat by Pulse 94 Oximetry DEENA score - Deena Score Age > 65: (1) Yes Aspirin use within the Past 7 Days: (0) No 3 or more CAD Risk Factors: (0) No 2 or more Angina events in past 24 hrs: (0) No Known CAD with more than 50% Stenosis: (0) No Elevated Cardiac Markers: (0) No ST Deviation Greater than 0.5mm: (0) No DEENA Score: 1 ED Medical Decision Making - Lab Data Result diagrams: 04/10/22 12:04 04/10/22 12:04 Lab Results 04/10/22 04/10/22 04/10/22 Range/Units 12:04 12:04 12:04 WBC 7.7 (4.5-11.0) K/mm3 RBC 3.97 (3.65-5.03) M/mm3 Hgb 11.7 L (11.8-15.2) gm/dl Hct 34.9 L (35.5-45.6) % MCV 88 (84-94) fl MCH 30 (28-32) pg MCHC 34 (32-34) % RDW 14.6 (13.2-15.2) % Plt Count 204 (140-440) K/mm3 Lymph % (Auto) 5.5 L (13.4-35.0) % [place] % (Auto) 5.2 (0.0-7.3) % Eos % (Auto) 0.0 (0.0-4.3) % Baso % (Auto) 0.5 (0.0-1.8) % Lymph # (Auto) 0.4 L (1.2-5.4) K/mm3 [place] # (Auto) 0.4 (0.0-0.8) K/mm3 Eos # (Auto) 0.0 (0.0-0.4) K/mm3 Baso # (Auto) 0.0 (0.0-0.1) K/mm3 Seg Neutrophils % 88.8 H (40.0-70.0) % Seg Neutrophils # 6.8 (1.8-7.7) K/mm3 PT 17.3 H (12.2-14.9) Sec. INR 1.26 H (0.87-1.13) APTT 42.8 H (24.2-36.6) Sec. D-Dimer 730.30 H (0-234) ng/mlDDU Sodium 137 (137-145) mmol/L Potassium 3.2 L (3.6-5.0) mmol/L Chloride 100.3 (98-107) mmol/L Carbon Dioxide 28 (22-30) mmol/L Anion Gap 12 mmol/L BUN 12 (9-20) mg/dL Creatinine 0.9 (0.8-1.3) mg/dL Estimated GFR > 60 ml/min BUN/Creatinine Ratio 13 % Glucose 85 (75-100) mg/dL Calcium 9.1 (8.4-10.2) mg/dL Magnesium (1.7-2.3) mg/dL Total Bilirubin 1.00 (0.1-1.2) mg/dL AST 22 (5-40) units/L ALT 11 (7-56) units/L Alkaline Phosphatase 49 (35-129) units/L Troponin T < 0.010 (0.00-0.029) ng/mL Total Protein 5.9 L (6.3-8.2) g/dL Albumin 3.9 (3.9-5) g/dL Albumin/Globulin Ratio 2.0 % 04/10/22 Range/Units 12:52 WBC (4.5-11.0) K/mm3 RBC (3.65-5.03) M/mm3 Hgb (11.8-15.2) gm/dl Hct (35.5-45.6) % MCV (84-94) fl MCH (28-32) pg MCHC (32-34) % RDW (13.2-15.2) % Plt Count (140-440) K/mm3 Lymph % (Auto) (13.4-35.0) % [place] % (Auto) (0.0-7.3) % Eos % (Auto) (0.0-4.3) % Baso % (Auto) (0.0-1.8) % Lymph # (Auto) (1.2-5.4) K/mm3 [place] # (Auto) (0.0-0.8) K/mm3 Eos # (Auto) (0.0-0.4) K/mm3 Baso # (Auto) (0.0-0.1) K/mm3 Seg Neutrophils % (40.0-70.0) % Seg Neutrophils # (1.8-7.7) K/mm3 PT (12.2-14.9) Sec. INR (0.87-1.13) APTT (24.2-36.6) Sec. D-Dimer (0-234) ng/mlDDU Sodium (137-145) mmol/L Potassium (3.6-5.0) mmol/L Chloride (98-107) mmol/L Carbon Dioxide (22-30) mmol/L Anion Gap mmol/L BUN (9-20) mg/dL Creatinine (0.8-1.3) mg/dL Estimated GFR ml/min BUN/Creatinine Ratio % Glucose (75-100) mg/dL Calcium (8.4-10.2) mg/dL Magnesium 1.60 L (1.7-2.3) mg/dL Total Bilirubin (0.1-1.2) mg/dL AST (5-40) units/L ALT (7-56) units/L Alkaline Phosphatase (35-129) units/L Troponin T (0.00-0.029) ng/mL Total Protein (6.3-8.2) g/dL Albumin (3.9-5) g/dL Albumin/Globulin Ratio % - EKG Data -: EKG Interpreted by [place] EKG shows normal: sinus rhythm, ST-T waves (No STEMI) Rate: normal - EKG Data When compared to previous EKG there are: no significant change - Radiology Data Radiology results: report reviewed CHEST 1 VIEW 04/10/2022 12:01 PM INDICATION / CLINICAL INFORMATION: Chest Pain. COMPARISON: 10/01/20 FINDINGS: SUPPORT DEVICES: None. HEART / MEDIASTINUM: No significant abnormality. LUNGS / PLEURA: Airspace disease in the right midlung. Left lung is clear. No pneumothorax. ADDITIONAL FINDINGS: No significant additional findings. IMPRESSION: 1. Right lung airspace disease, possibly pneumonia. CTA CHEST WITH CONTRAST INDICATION / CLINICAL INFORMATION: CP, ELEVATED DIMER, ABNL CXR. TECHNIQUE: Axial CT images were obtained through the chest after injection of IV contrast. 3 plane MIP and/or 3D reconstructions were produced. All CT scans at this location are performed using CT dose reduction for ALARA by means of automated exposure control. COMPARISON: No prior chest x-rays, most recently on 04/10/2022 FINDINGS: PULMONARY EMBOLUS: None. THORACIC AORTA: Mild atherosclerotic calcification without acute abnormality. HEART: No significant abnormality. CORONARY ARTERY CALCIFICATION: Present -- Moderate. MEDIASTINUM / BRYCE: No significant abnormality. PLEURA: No pleural effusion. No pneumothorax. LUNGS: Areas of consolidation in the right upper lobe, right middle lobe, and right lower lobe with associated interlobular septal thickening, likely atypical infectious process. ADDITIONAL FINDINGS: None. UPPER ABDOMEN: No acute findings. SKELETAL STRUCTURES: No significant osseous abnormality. IMPRESSION: 1. No CT evidence for pulmonary embolism. 2. Areas of consolidation with associated interlobular septal thickening in the right upper lobe, right lower lobe, right middle lobe, probable atypical infectious process. - Medical Decision Making 76-year-old male presents the hospital complaining of chest pain. EKG does not reveal acute abnormalities and patient has a negative troponin. Mild D-dimer elevation with pulmonary infiltrate identified on chest x-ray. CT angiogram chest confirms pulm infiltrate without pulmonary embolism. Pt sattint 94% on 4 Liters. ROOm air sat requested from resp therapist with o2 titration. Blood cultures performed. Antibiotics ordered. No signs of severe sepsis or septic shock at this time. Hospitalist to admit Pt O2 sat 90% on room air, pt placed on 2 L Nasal cannula Potassium and magnesium was supplemented in the ED Critical Care Time: No Critical care attestation.: If time is entered above; I have spent that time in minutes in the direct care of this critically ill patient, excluding procedure time. ED Disposition Clinical Impression: Chest pain, Pneumonia, Hypokalemia, Hypomagnesemia, Acute respiratory failure with hypoxemia Disposition: ADMITTED INPATIENT Is pt being admited?: Yes Condition: Stable Time of Disposition: 14:44
[2022-04-10 12:13] LABS: Basophils % (Auto) 0.5 % (0.0-1.8); Hematocrit 34.9 % (35.5-45.6); Hemoglobin 11.7 gm/dl (11.8-15.2); Lymphocytes # (Auto) 0.4 K/mm3 (1.2-5.4); Lymphocytes % (Auto) 5.5 % (13.4-35.0); Mean Corpuscular HGB Conc 34 % (32-34); Mean Corpuscular Volume 88 fl (84-94); Monocytes # (Auto) 0.4 K/mm3 (0.0-0.8); Monocytes % (Auto) 5.2 % (0.0-7.3); Platelet Count 204 K/mm3 (140-440); Red Blood Count 3.97 M/mm3 (3.65-5.03); Red Cell Distribution Width 14.6 % (13.2-15.2)
--- NOTE | 2022-04-10 12:17 | XRay Report ---
CHEST 1 VIEW 04/10/2022 12:01 PM INDICATION / CLINICAL INFORMATION: Chest Pain. COMPARISON: 10/01/20 FINDINGS: SUPPORT DEVICES: None. HEART / MEDIASTINUM: No significant abnormality. LUNGS / PLEURA: Airspace disease in the right midlung. Left lung is clear. No pneumothorax. ADDITIONAL FINDINGS: No significant additional findings. IMPRESSION: 1. Right lung airspace disease, possibly pneumonia. Signer Name: Mykel Joy MD Signed: 04/10/2022 12:13 PM Workstation Name: [email or web address]
[2022-04-10 12:29] LABS: INR 1.26 (0.87-1.13)
[2022-04-10 12:30] LABS: Partial Thromboplastin Time 42.8 Sec. (24.2-36.6)
[2022-04-10] MEDS ORDERED: AZITHROMYCIN/NS 500 MG/250 ML 500 MG/250 ML BAG IV ONE (12:31)
[2022-04-10] MEDS ORDERED: cefTRIAXone/NS 2 GM/100 ML 2 GM/100 ML BAG IV ONE (12:31)
[2022-04-10 12:36] LABS: Alanine Aminotransferase 11 units/L (7-56); Albumin 3.9 g/dL (3.9-5); BUN/Creatinine Ratio 13; Blood Urea Nitrogen 12 mg/dL (9-20); Calcium 9.1 mg/dL (8.4-10.2); Hemolysis Index 5
[2022-04-10] MEDS ORDERED: POTASSIUM CHLORIDE ER 20 MEQ TAB PO ONE (12:41)
[2022-04-10] MEDS ORDERED: MAGNESIUM SULFATE 2 GM/50 ML BAG IV ONE (13:46)
[2022-04-10] MEDS: SODIUM CHLORIDE 0.9% 1000 ML 1,000 ML IV SCH ×2 (13:58→22:36)
--- NOTE | 2022-04-10 14:30 | Cat Scan Report ---
CTA CHEST WITH CONTRAST INDICATION / CLINICAL INFORMATION: CP, ELEVATED DIMER, ABNL CXR. TECHNIQUE: Axial CT images were obtained through the chest after injection of IV contrast. 3 plane [place] P and/or 3D reconstructions were produced. All CT scans at this location are performed using CT dose reduction for ALARA by means of automated exposure control. COMPARISON: No prior chest x-rays, most recently on 04/10/2022 FINDINGS: PULMONARY EMBOLUS: None. THORACIC AORTA: Mild atherosclerotic calcification without acute abnormality. HEART: No significant abnormality. CORONARY ARTERY CALCIFICATION: Present -- Moderate. MEDIASTINUM / BRYCE: No significant abnormality. PLEURA: No pleural effusion. No pneumothorax. LUNGS: Areas of consolidation in the right upper lobe, right middle lobe, and right lower lobe with a ssociated interlobular septal thickening, likely atypical infectious process. ADDITIONAL FINDINGS: None. UPPER ABDOMEN: No acute findings. SKELETAL STRUCTURES: No significant osseous abnormality. IMPRESSION: 1. No CT evidence for pulmonary embolism. 2. Areas of consolidation with associated interlobular septal thickening in the right upper lobe, rig ht lower lobe, right middle lobe, probable atypical infectious process. Signer Name: Jay Vazquez MD Signed: 04/10/2022 2:26 PM Workstation Name: [email or web address]
[2022-04-10] MEDS ORDERED: ONDANSETRON 4 MG/2 ML INJ IV PRN ×2 (14:51→17:51)
[2022-04-10] MEDS ORDERED: ACETAMINOPHEN 325 MG TAB PO PRN ×2 (14:51→17:51)
[2022-04-10] MEDS ORDERED: MORPHINE 2 MG/1 ML INJ IV PRN (14:52)
[2022-04-10] MEDS ORDERED: METOCLOPRAMIDE 10 MG/2 ML INJ IV PRN (17:51)
[2022-04-10] MEDS ORDERED: HYDROmorphone 0.5 MG/0.5 ML INJ IV PRN (17:51)
[2022-04-10] MEDS ORDERED: oxyCODONE /ACETAMINOPHEN 5-325MG TAB PO PRN (17:51)
[2022-04-10] MEDS ORDERED: IPRATROPIUM/ALBUTEROL SULFATE 3 ML AMPUL.NEB IH PRN (17:58)
[2022-04-10] MEDS ORDERED: AZITHROMYCIN/NS 500 MG/250 ML 500 MG/250 ML BAG IV SCH (18:00)
--- NOTE | 2022-04-10 18:04 | History and Physical Report ---
History of Present Illness Date of examination: 04/10/22 Date of admission: 04/10/22 14:51 Chief complaint: Chest pain and shortness of breath for 1 day History of present illness: 76-year-old male with a past medical history of hypertension, CAD with stent placement, arthritis, herniated disc with chronic back pain, CVA with residual left-sided weakness presents to the hospital with complaints of intermittent chest pain since last night. Patient is accompanied by his home health aide at the bedside who is with patient during the daytime and states patient is at his baseline mental status. Patient is unable to characterize pain but states it is intermittent and worse with inspiration at times. Mild shortness of breath reported with vomiting today. Patient is compliant with his medications. Continue to smoke and denies home oxygen use. As per previous medical record patient had a cardiac cath. November 24, 2021 showing normal left ventricular systolic function with a small area of hypokinesis in the lateral wall. Otherwise patent stents noted in the mid LAD and mid marginal branch. Overall no obstructive lesions noted. Medical therapy recommended at that time Heart Score - HEART Score History: Slightly suspicious EKG: Normal Age: > 65 Risk factors: > 3 risk factors or hx of atherosclerotic disease - EKG Read Time Time EKG Completed: 11:00 EKG Read Time: 11:00 - Past Medical History --Hypertension: Yes --CVA: Yes --Heart Attack/AMI: Yes --Additional medical history: chronic back pain - Surgical History --Back surgery. 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 no seizures Skin no rash no itching Psychiatric no depression no homicidal or suicidal tendencies Hematologic no lymphedema or bruising Endocrine no polydipsia no polyuria no cold intolerance no heat intolerance Medications and Allergies Allergies Allergy/AdvReac Type Severity Reaction Status Date / Time No Known Allergies Allergy Verified 04/10/22 10:51 Home Medications Medication Instructions Recorded Confirmed Last Taken Type AtorvaSTATin [Lipitor] 40 mg PO QHS #30 tablet 03/26/20 11/22/21 11/21/21 Rx ISOSORBIDE MONOnitrate [Imdur ER] 30 mg PO QDAY #30 tablet 03/26/20 11/22/21 11/21/21 Rx lisinopriL [Zestril TAB] 40 mg PO QDAY #30 tablet 03/26/20 11/22/21 11/21/21 Rx Clopidogrel [Plavix] 75 mg PO QDAY 05/18/20 11/22/21 11/21/21 History Meloxicam [Mobic] 15 mg PO DAILY 11/22/21 11/22/21 11/21/21 History amLODIPine [Norvasc] 10 mg PO DAILY 11/22/21 11/22/21 11/21/21 History carvediloL [Coreg] 3.125 mg PO BID 11/22/21 11/22/21 11/21/21 History Active Meds: Active Medications Acetaminophen (Acetaminophen 325 Mg Tab) 650 mg PO Q4H PRN PRN Reason: Pain MILD(1-3)/Fever >100.5/[place]RE[place] Sodium Chloride (Nacl 0.9% 1000 Ml) 1,000 mls @ 150 mls/hr IV DIRECT FERNANDO Last Admin: 04/10/22 13:58 Dose: 150 mls/hr Morphine Sulfate (Morphine 2 Mg/1 Ml Inj) 2 mg IV Q4H PRN PRN Reason: Pain, Moderate (4-6) Ondansetron HCl (Ondansetron 4 Mg/2 Ml Inj) 4 mg IV Q8H PRN PRN Reason: Nausea And Vomiting Sodium Chloride (Sodium Chloride 0.9% 10 Ml Flush Syringe) 10 ml IV BID FERNANDO Sodium Chloride (Sodium Chloride 0.9% 10 Ml Flush Syringe) 10 ml IV PRN PRN PRN Reason: LINE FLUSH Exam - Constitutional Vitals: Temp Pulse Resp BP Pulse Ox 87 23 136/88 89 04/10/22 14:00 04/10/22 14:00 04/10/22 14:00 04/10/22 14:00 General appearance: Present: mild distress, well-nourished - EENT Eyes: Present: PERRL ENT: hearing intact, clear oral mucosa - Neck Neck: Present: supple, normal ROM - Respiratory Respiratory effort: normal Respiratory: bilateral: rhonchi, wheezing - Cardiovascular Heart rate: 78 Rhythm: regular Heart Sounds: Present: S1 & S2. Absent: rub, click - Extremities Extremities: no ischemia, pulses intact, pulses symmetrical, No edema Peripheral Pulses: within normal limits - Abdominal General gastrointestinal: Present: soft, non-tender, non-distended, normal bowel sounds Male genitourinary: Present: normal - Integumentary Integumentary: Present: clear, warm, dry - Musculoskeletal Musculoskeletal: gait normal, strength equal bilaterally - Psychiatric Psychiatric: appropriate mood/affect, intact judgment & insight - Neurologic Neurologic: CNII-XII intact, moves all extremities HEART Score - HEART Score EKG: Normal Age: > 65 Risk factors: > 3 risk factors or hx of atherosclerotic disease Troponin: Troponin T < 0.010 ng/mL (0.00-0.029) 04/10/22 12:04 Results - Labs CBC & Chem 7: 04/10/22 12:04 04/10/22 12:04 Labs: Laboratory Last Values WBC 7.7 K/mm3 (4.5-11.0) 04/10/22 12:04 RBC 3.97 M/mm3 (3.65-5.03) 04/10/22 12:04 Hgb 11.7 gm/dl (11.8-15.2) L 04/10/22 12:04 Hct 34.9 % (35.5-45.6) L 04/10/22 12:04 MCV 88 fl (84-94) 04/10/22 12:04 MCH 30 pg (28-32) 04/10/22 12:04 MCHC 34 % (32-34) 04/10/22 12:04 RDW 14.6 % (13.2-15.2) 04/10/22 12:04 Plt Count 204 K/mm3 (140-440) 04/10/22 12:04 Lymph % (Auto) 5.5 % (13.4-35.0) L 04/10/22 12:04 [place] % (Auto) 5.2 % (0.0-7.3) 04/10/22 12:04 Eos % (Auto) 0.0 % (0.0-4.3) 04/10/22 12:04 Baso % (Auto) 0.5 % (0.0-1.8) 04/10/22 12:04 Lymph # (Auto) 0.4 K/mm3 (1.2-5.4) L 04/10/22 12:04 [place] # (Auto) 0.4 K/mm3 (0.0-0.8) 04/10/22 12:04 Eos # (Auto) 0.0 K/mm3 (0.0-0.4) 04/10/22 12:04 Baso # (Auto) 0.0 K/mm3 (0.0-0.1) 04/10/22 12:04 Seg Neutrophils % 88.8 % (40.0-70.0) H 04/10/22 12:04 Seg Neutrophils # 6.8 K/mm3 (1.8-7.7) 04/10/22 12:04 PT 17.3 Sec. (12.2-14.9) H 04/10/22 12:04 INR 1.26 (0.87-1.13) H 04/10/22 12:04 APTT 42.8 Sec. (24.2-36.6) H 04/10/22 12:04 D-Dimer 730.30 ng/mlDDU (0-234) H 04/10/22 12:04 Sodium 137 mmol/L (137-145) 04/10/22 12:04 Potassium 3.2 mmol/L (3.6-5.0) L 04/10/22 12:04 Chloride 100.3 mmol/L (98-107) 04/10/22 12:04 Carbon Dioxide 28 mmol/L (22-30) 04/10/22 12:04 Anion Gap 12 mmol/L 04/10/22 12:04 BUN 12 mg/dL (9-20) 04/10/22 12:04 Creatinine 0.9 mg/dL (0.8-1.3) 04/10/22 12:04 Estimated GFR > 60 ml/min 04/10/22 12:04 BUN/Creatinine Ratio 13 % 04/10/22 12:04 Glucose 85 mg/dL (75-100) 04/10/22 12:04 Calcium 9.1 mg/dL (8.4-10.2) 04/10/22 12:04 Magnesium 1.60 mg/dL (1.7-2.3) L 04/10/22 12:52 Total Bilirubin 1.00 mg/dL (0.1-1.2) 04/10/22 12:04 AST 22 units/L (5-40) 04/10/22 12:04 ALT 11 units/L (7-56) 04/10/22 12:04 Alkaline Phosphatase 49 units/L (35-129) 04/10/22 12:04 Troponin T < 0.010 ng/mL (0.00-0.029) 04/10/22 12:04 Total Protein 5.9 g/dL (6.3-8.2) L 04/10/22 12:04 Albumin 3.9 g/dL (3.9-5) 04/10/22 12:04 Albumin/Globulin Ratio 2.0 % 04/10/22 12:04 Short CBC 04/10/22 Range/Units 12:04 WBC 7.7 (4.5-11.0) K/mm3 Hgb 11.7 L (11.8-15.2) gm/dl Hct 34.9 L (35.5-45.6) % Plt Count 204 (140-440) K/mm3 BMP 04/10/22 12:04 Sodium 137 Potassium 3.2 L Chloride 100.3 Carbon Dioxide 28 BUN 12 Creatinine 0.9 Glucose 85 Calcium 9.1 Cardiac Enzymes 04/10/22 04/10/22 Range/Units 12:04 16:08 Troponin T < 0.010 < 0.010 (0.00-0.029) ng/mL Liver Function 04/10/22 Range/Units 12:04 Total Bilirubin 1.00 (0.1-1.2) mg/dL AST 22 (5-40) units/L ALT 11 (7-56) units/L Alkaline Phosphatase 49 (35-129) units/L Albumin 3.9 (3.9-5) g/dL Microbiology: Microbiology 04/10/22 12:36 Peripheral/Venous Blood Culture - Preliminary Culture in Progress 04/10/22 12:36 Peripheral/Venous Blood Culture - Preliminary Culture in Progress - Imaging and Cardiology EKG: report reviewed (No acute ST-T wave changes, normal sinus rhythm) Chest x-ray: report reviewed Imaging and Cardiology: Chest x-ray Right lung airspace disease, possible pneumonia Chest CTA No CT evidence for pulmonary embolism Areas of consolidation with associated interlobular septal thickening in the right upper lobe right lower lobe right middle lobe probable atypical infectious disease Assessment and Plan Advance Directives: Yes (Full code) VTE prophylaxis?: Chemical Plan of care discussed with patient/family: Yes - Patient Problems (1) Acute respiratory failure with hypoxemia Current Visit: Yes Status: Acute Plan to address problem: Patient was hypoxic at the time of admission to the emergency room Sats in the mid 80s Nasal cannula oxygen Titrate according to oxygen saturations Respiratory assessment and treatment (2) Right lower lobe pneumonia Current Visit: Yes Status: Acute Qualifiers: Pneumonia type: aspiration pneumonia Plan to address problem: Aspiration the differential diagnosis Patient initiated on IV Zithromax and IV ceftriaxone to cover the atypicals in the pneumococcal strains (3) Hypokalemia Current Visit: Yes Status: Acute Plan to address problem: Supplemented (4) Coronary artery disease Current Visit: No Status: Chronic Qualifiers: Coronary Disease-Associated Artery/Lesion type: [place] artery [place] vs. transplanted heart: [place] heart Plan to address problem: Continue Plavix and Imdur (5) GERD (gastroesophageal reflux disease) Current Visit: No Status: Chronic Qualifiers: Esophagitis presence: without esophagitis Qualified Code(s): K21.9 - G debra-esophageal reflux disease without esophagitis Plan to address problem: On PPIs (6) Hyperlipidemia Current Visit: No Status: Chronic Qualifiers: Hyperlipidemia type: mixed hyperlipidemia Qualified Code(s): E78.2 - Mixed hyperlipidemia Plan to address problem: Continue statins (7) Hypertension Current Visit: No Status: Chronic Qualifiers: Hypertension type: primary hypertension Qualified Code(s): I10 - Essential (primary) hypertension Plan to address problem: Continue antihypertensives and adjust medications as necessary (8) DVT prophylaxis Current Visit: Yes Status: Acute Plan to address problem: On heparin and GI prophylaxis (9) Advance care planning Current Visit: Yes Status: Acute Plan to address problem: Disease education conducted, care plan discussed, prognosis discussed and diagnosis discussed. Patient acknowledges understanding with care plan. +30 minutes. Patient is full code.
[2022-04-10] MEDS: cefTRIAXone/NS 2 GM/100 ML 2 GM/100 ML BAG IV SCH (19:09)
[2022-04-10] MEDS: IPRATROPIUM/ALBUTEROL SULFATE 3 ML AMPUL.NEB IH SCH (20:10)
[2022-04-10] MEDS: methylPREDNISolone Sod Succinate 125 MG/2 ML INJ IV SCH ×2 (20:37→22:35)
[2022-04-10] MEDS ORDERED: FAMOTIDINE 20 MG/2 ML INJ IV SCH (22:00)
[2022-04-11] MEDS: methylPREDNISolone Sod Succinate 125 MG/2 ML INJ IV SCH ×3 (05:38→21:47)
[2022-04-11] MEDS: IPRATROPIUM/ALBUTEROL SULFATE 3 ML AMPUL.NEB IH SCH ×4 (08:18→20:11)
[2022-04-11] MEDS: cefTRIAXone/NS 2 GM/100 ML 2 GM/100 ML BAG IV SCH (10:32)
[2022-04-11] MEDS: AZITHROMYCIN 250 MG TAB PO SCH (10:32)
[2022-04-11] MEDS: FAMOTIDINE 20 MG TAB PO SCH ×2 (10:36→21:47)
--- NOTE | 2022-04-11 12:51 | Consultation ---
History of Present Illness - Reason for Consult Consult date: 04/11/22 - Chief Complaint Chief complaint: Chest pain and shortness of breath for 1 day Medications and Allergies Allergies Allergy/AdvReac Type Severity Reaction Status Date / Time No Known Allergies Allergy Verified 04/10/22 10:51 Home Medications Medication Instructions Recorded Confirmed Last Taken Type AtorvaSTATin [Lipitor] 40 mg PO QHS #30 tablet 03/26/20 11/22/21 11/21/21 Rx ISOSORBIDE MONOnitrate [Imdur ER] 30 mg PO QDAY #30 tablet 03/26/20 11/22/21 11/21/21 Rx lisinopriL [Zestril TAB] 40 mg PO QDAY #30 tablet 03/26/20 11/22/21 11/21/21 Rx Clopidogrel [Plavix] 75 mg PO QDAY 05/18/20 11/22/21 11/21/21 History Meloxicam [Mobic] 15 mg PO DAILY 11/22/21 11/22/21 11/21/21 History amLODIPine [Norvasc] 10 mg PO DAILY 11/22/21 11/22/21 11/21/21 History carvediloL [Coreg] 3.125 mg PO BID 11/22/21 11/22/21 11/21/21 History Active Meds: Active Medications Acetaminophen (Acetaminophen 325 Mg Tab) 650 mg PO Q4H PRN PRN Reason: Pain MILD(1-3)/Fever >100.5/[place] Albuterol/Ipratropium (Ipratropium/Albuterol Sulfate 3 Ml Ampul.Neb) 1 ampul IH QIDRT [facility] Last Admin: 04/11/22 08:18 Dose: Not Given Azithromycin (Azithromycin 250 Mg Tab) 500 mg PO QDAY [facility] Stop: 04/14/22 10:59 Last Admin: 04/11/22 10:32 Dose: 500 mg Famotidine (Famotidine 20 Mg Tab) 20 mg PO BID [facility] Last Admin: 04/11/22 10:36 Dose: 20 mg Hydromorphone HCl (Hydromorphone 0.5 Mg/0.5 Ml Inj) 0.5 mg IV Q3H PRN PRN Reason: Pain , Severe (7-10) Sodium Chloride (Nacl 0.9% 1000 Ml) 1,000 mls @ 75 mls/hr IV DIRECT [facility] Last Admin: 04/10/22 22:36 Dose: 75 mls/hr Ceftriaxone Sodium (Rocephin/Ns 2 Gm/100 Ml) 2 gm in 100 mls @ 200 mls/hr IV Q24HR [facility]; Protocol Stop: 04/14/22 10:29 Last Admin: 04/11/22 10:32 Dose: 200 mls/hr Methylprednisolone Sodium Succinate (Methylprednisolone Sod Succinate 125 Mg/2 Ml Inj) 60 mg IV Q8HR [facility] Last Admin: 04/11/22 05:38 Dose: 60 mg Metoclopramide HCl (Metoclopramide 10 Mg/2 Ml Inj) 10 mg IV Q6H PRN PRN Reason: Nausea And Vomiting Morphine Sulfate (Morphine 2 Mg/1 Ml Inj) 2 mg IV Q4H PRN PRN Reason: Pain, Moderate (4-6) Ondansetron HCl (Ondansetron 4 Mg/2 Ml Inj) 4 mg IV Q3H PRN PRN Reason: Nausea And Vomiting Oxycodone/Acetaminophen (Oxycodone /Acetaminophen 5-325mg Tab) 1 tab PO Q6H PRN PRN Reason: Pain, Moderate (4-6) Sodium Chloride (Sodium Chloride 0.9% 10 Ml Flush Syringe) 10 ml IV BID [facility] Last Admin: 04/11/22 10:32 Dose: 10 ml Sodium Chloride (Sodium Chloride 0.9% 10 Ml Flush Syringe) 10 ml IV PRN PRN PRN Reason: LINE FLUSH Mental Status Exam - Vital signs Last Vital Signs Temp 98.8 F 04/11/22 03:37 Pulse 81 04/11/22 03:37 Resp 15 04/11/22 11:09 BP 108/68 04/11/22 03:37 Pulse Ox 97 04/11/22 11:09 Results Result Diagrams: 04/10/22 12:04 04/10/22 12:04 Abnormal lab results 04/10/22 Range/Units 12:52 Magnesium 1.60 L (1.7-2.3) mg/dL All other labs normal.
[2022-04-11] MEDS: SODIUM CHLORIDE 0.9% 1000 ML 1,000 ML IV SCH (22:01)
[2022-04-12] MEDS: methylPREDNISolone Sod Succinate 125 MG/2 ML INJ IV SCH ×2 (07:00→13:42)
--- NOTE | 2022-04-12 07:12 | Progress Note ---
Assessment and Plan - Patient Problems (1) Acute respiratory failure with hypoxemia Current Visit: Yes Status: Acute Plan to address problem: Patient was hypoxic at the time of admission to the emergency room Sats in the mid 80s Nasal cannula oxygen Titrate according to oxygen saturations Respiratory assessment and treatment (2) Right lower lobe pneumonia Current Visit: Yes Status: Acute Qualifiers: Pneumonia type: aspiration pneumonia Plan to address problem: Aspiration the differential diagnosis Patient initiated on IV Zithromax and IV ceftriaxone to cover the atypicals in the pneumococcal strains (3) Hypokalemia Current Visit: Yes Status: Acute Plan to address problem: Supplemented (4) Coronary artery disease Current Visit: No Status: Chronic Qualifiers: Coronary Disease-Associated Artery/Lesion type: [place] artery [place] vs. transplanted heart: [place] heart Plan to address problem: Continue Plavix and Imdur (5) GERD (gastroesophageal reflux disease) Current Visit: No Status: Chronic Qualifiers: Esophagitis presence: without esophagitis Qualified Code(s): K21.9 - Gastro-esophageal reflux disease without esophagitis Plan to address problem: On PPIs (6) Hyperlipidemia Current Visit: No Status: Chronic Qualifiers: Hyperlipidemia type: mixed hyperlipidemia Qualified Code(s): E78.2 - Mixed hyperlipidemia Plan to address problem: Continue statins (7) Hypertension Current Visit: No Status: Chronic Qualifiers: Hypertension type: primary hypertension Qualified Code(s): I10 - Essential (primary) hypertension Plan to address problem: Continue antihypertensives and adjust medications as necessary (8) DVT prophylaxis Current Visit: Yes Status: Acute Plan to address problem: On heparin and GI prophylaxis (9) Advance care planning Current Visit: Yes Status: Acute Plan to address problem: Disease education conducted, care plan discussed, prognosis discussed and diagnosis discussed. Patient acknowledges understanding with care plan. +30 minutes. Patient is full code. (10) Discharge planning issues Current Visit: Yes Status: Acute Plan to address problem: Possible discharge tomorrow if stable Subjective Date of service: 04/11/22 Principal diagnosis: Acute respiratory failure with hypoxia, pneumonia Interval history: 76-year-old male with a past medical history of hypertension, CAD with stent placement, arthritis, herniated disc with chronic back pain, CVA with residual left-sided weakness presents to the hospital with complaints of intermittent chest pain since last night. Patient is accompanied by his home health aide at the bedside who is with patient during the daytime and states patient is at his baseline mental status. Patient is unable to characterize pain but states it is intermittent and worse with inspiration at times. Mild shortness of breath reported with vomiting today. Patient is compliant with his medications. Continue to smoke and denies home oxygen use. As per previous medical record patient had a cardiac cath. November 24, 2021 showing normal left ventricular systolic function with a small area of hypokinesis in the lateral wall. Otherwise patent stents noted in the mid LAD and mid marginal branch. Overall no obstructive lesions noted. Medical therapy recommended at that time 04/11/2022 Patient is improved No fever no chills On room air Objective - Constitutional Vitals: Vital Signs - 12hr 04/11/22 04/11/22 04/11/22 20:00 20:13 20:25 Temperature Pulse Rate Pulse Rate [ 88 Anterior Bilateral Throughout] Respiratory 15 Rate Respiratory 16 Rate [Anterior Bilateral Throughout] Respiratory Rate [Chest] Blood Pressure O2 Sat by Pulse 96 97 Oximetry 04/11/22 04/11/22 04/12/22 21:44 22:00 04:21 Temperature 97.5 F L 97.5 F L Pulse Rate 84 82 Pulse Rate [ Anterior Bilateral Throughout] Respiratory 16 18 Rate Respiratory Rate [Anterior Bilateral Throughout] Respiratory 20 Rate [Chest] Blood Pressure 125/77 122/77 O2 Sat by Pulse 94 97 Oximetry General appearance: Present: no acute distress, well-nourished - EENT Eyes: PERRL, EOM intact ENT: hearing intact, clear oral mucosa Ears: bilateral: normal - Neck Neck: supple, normal ROM - Respiratory Respiratory effort: normal Respiratory: bilateral: CTA - Breasts Breasts: normal - Cardiovascular Heart rate: 78 Rhythm: regular Heart Sounds: Present: S1 & S2. Absent: gallop, rub Extremities: pulses intact, No edema, normal color, Full ROM - Gastrointestinal General gastrointestinal: Present: soft, non-tender, non-distended, normal bowel sounds - Genitourinary Male genitourinary: normal - Integumentary Integumentary: clear, warm, dry - Musculoskeletal Musculoskeletal: 1, strength equal bilaterally - Neurologic Neurologic: moves all extremities - Psychiatric Psychiatric: memory intact, appropriate mood/affect, intact judgment & insight - Labs CBC & Chem 7: 04/10/22 12:04 04/10/22 12:04 HEART Score - HEART Score EKG: Normal Age: > 65 Risk factors: > 3 risk factors or hx of atherosclerotic disease Troponin: Troponin T < 0.010 ng/mL (0.00-0.029) 04/10/22 16:08 Troponin: < normal limit
[2022-04-12] MEDS: IPRATROPIUM/ALBUTEROL SULFATE 3 ML AMPUL.NEB IH SCH ×3 (07:56→16:19)
[2022-04-12] MEDS: cefTRIAXone/NS 2 GM/100 ML 2 GM/100 ML BAG IV SCH (09:35)
[2022-04-12] MEDS: FAMOTIDINE 20 MG TAB PO SCH (09:35)
[2022-04-12] MEDS: AZITHROMYCIN 250 MG TAB PO SCH (09:36)
--- NOTE | 2022-04-12 09:43 | Electrocardiograph Report ---
[facility] Test Date: 2022-04-10 Test Time: 11:00:17 Pat Name: LI BOLAND Department: Room: A364 Gender: M Shearing Shed Hand: RUSLAN : 1945 Requested By: JEF GALAVIZ Order Number: [id number] Reading MD: Francisco Silverman Measurements Intervals [place] Rate: 91 P: 69 [place]: 159 QRS: -24 QRSD: 85 T: 85 QT: 356 QTc: 438 Interpretive Statements Sinus rhythm Probable left atrial enlargement Compared to ECG 11/22/2021 08:42:54 Ventricular premature complex(es) no longer present Left-axis deviation no longer present Electronically Signed On 04-12-2022 9:42:45 EDT by Francisco Silverman
--- NOTE | 2022-04-12 09:52 | Electrocardiograph Report ---
[facility] Test Date: 2022-04-11 Test Time: 07:22:37 Pat Name: LI BOLAND Department: Room: A364 Gender: M Zinc Plater: WALTER : 1945 Requested By: JEF GALAVIZ Order Number: [id number] Reading MD: Francisco Silverman Measurements Intervals [place] Rate: 71 P: 66 [place]: 151 QRS: 47 QRSD: 87 T: 89 QT: 386 QTc: 420 Interpretive Statements Sinus rhythm Ventricular premature complex Compared to ECG 04/10/2022 11:00:17 Ventricular premature complex(es) now present Electronically Signed On 04-12-2022 9:52:04 EDT by Francisco Silverman
[2022-04-12 13:32] VITALS: BP 126/73
--- NOTE | 2022-04-12 16:08 | Discharge Summary ---
Providers - Providers Date of Admission: 04/10/22 14:51 Date of discharge: 04/12/22 Attending physician: ANDI VENTURA Primary care physician: NEERAJ BEE Hospitalization Condition: Stable Hospital course: Subjective Date of service: 04/12/22 Principal diagnosis: Acute respiratory failure with hypoxia, pneumonia Interval history: 76-year-old male with a past medical history of hypertension, CAD with stent placement, arthritis, herniated disc with chronic back pain, CVA with residual left-sided weakness presents to the hospital with complaints of intermittent chest pain since last night. Patient is accompanied by his home health aide at the bedside who is with patient during the daytime and states patient is at his baseline mental status. Patient is unable to characterize pain but states it is intermittent and worse with inspiration at times. Mild shortness of breath reported with vomiting today. Patient is compliant with his medications. Continue to smoke and denies home oxygen use. As per previous medical record patient had a cardiac cath. November 24, 2021 showing normal left ventricular systolic function with a small area of hypokinesis in the lateral wall. Otherwise patent stents noted in the mid LAD and mid marginal branch. Overall no obstructive lesions noted. Medical therapy recommended at that time 04/11/2022 Patient is improved No fever no chills On room air 04/12/2022 Patient is stable and on room air Patient to be discharged with home antibiotics Assessment and Plan - Patient Problems (1) Acute respiratory failure with hypoxemia Current Visit: Yes Status: Acute Plan to address problem: Patient doing well on room air with normal oxygen saturations (2) Right lower lobe pneumonia Current Visit: Yes Status: Acute Qualifiers: Pneumonia type: aspiration pneumonia Plan to address problem: Improved (3) Hypokalemia Current Visit: Yes Status: Acute Plan to address problem: Supplemented (4) Coronary artery disease Current Visit: No Status: Chronic Qualifiers: Coronary Disease-Associated Artery/Lesion type: [place] artery [place] vs. transplanted heart: [place] heart Plan to address problem: Continue Plavix and Imdur (5) GERD (gastroesophageal reflux disease) Current Visit: No Status: Chronic Qualifiers: Esophagitis presence: without esophagitis Qualified Code(s): K21.9 - Gastro-esophageal reflux disease without esophagitis Plan to address problem: On PPIs (6) Hyperlipidemia Current Visit: No Status: Chronic Qualifiers: Hyperlipidemia type: mixed hyperlipidemia Qualified Code(s): E78.2 - Mixed hyperlipidemia Plan to address problem: Continue statins (7) Hypertension Current Visit: No Status: Chronic Qualifiers: Hypertension type: primary hypertension Qualified Code(s): I10 - Essential (primary) hypertension Plan to address problem: Continue antihypertensives and adjust medications as necessary (8) DVT prophylaxis Current Visit: Yes Status: Acute Plan to address problem: On heparin and GI prophylaxis (9) Advance care planning Current Visit: Yes Status: Acute Plan to address problem: Disease education conducted, care plan discussed, prognosis discussed and diagnosis discussed. Patient acknowledges understanding with care plan. +30 minutes. Patient is full code. (10) Discharge planning issues Current Visit: Yes Status: Acute Plan to address problem: Possible discharge tomorrow if stable Disposition: 01 HOME / SELF CARE / HOMELESS Final Discharge Diagnosis (Prints w/discharge instructions): Acute respiratory failure with hypoxia. Right lower lobe pneumonia. Hypokalemia. Coronary artery disease. GERD. Hyperlipidemia. Hypertension Time spent for discharge: 38 minutes - Discharge Diagnoses (1) Acute respiratory failure with hypoxemia Status: Acute (2) Right lower lobe pneumonia Status: Acute Qualifiers: Pneumonia type: aspiration pneumonia (3) Hypokalemia Status: Acute (4) Coronary artery disease Status: Chronic Qualifiers: Coronary Disease-Associated Artery/Lesion type: [place] artery [place] vs. transplanted heart: [place] heart (5) GERD (gastroesophageal reflux disease) Status: Chronic Qualifiers: Esophagitis presence: without esophagitis Qualified Code(s): K21.9 - Gastro-esophageal reflux disease without esophagitis (6) Hyperlipidemia Status: Chronic Qualifiers: Hyperlipidemia type: mixed hyperlipidemia Qualified Code(s): E78.2 - Mixed hyperlipidemia (7) Hypertension Status: Chronic Qualifiers: Hypertension type: primary hypertension Qualified Code(s): I10 - Essential (primary) hypertension (8) DVT prophylaxis Status: Acute (9) Advance care planning Status: Acute (10) Discharge planning issues Status: Acute Core Measure Documentation - Palliative Care Palliative Care/ Comfort Measures: Not Applicable - Core Measures Any of the following diagnoses?: none Exam - Constitutional Vitals: Temp Pulse Resp BP Pulse Ox 98.0 F 66 16 126/73 98 04/12/22 11:41 04/12/22 11:41 04/12/22 11:41 04/12/22 11:41 04/12/22 11:41 General appearance: Present: no acute distress, well-nourished - EENT Eyes: Present: PERRL ENT: hearing intact, clear oral mucosa - Neck Neck: Present: supple, normal ROM - Respiratory Respiratory effort: normal Respiratory: bilateral: CTA - Cardiovascular Heart rate: 78 Rhythm: regular Heart Sounds: Present: S1 & S2. Absent: rub, click - Extremities Extremities: pulses symmetrical, No edema Peripheral Pulses: within normal limits - Abdominal General gastrointestinal: Present: soft, non-tender, non-distended, normal bowel sounds Male genitourinary: Present: normal - Integumentary Integumentary: Present: clear, warm, dry - Musculoskeletal Musculoskeletal: gait normal, strength equal bilaterally - Psychiatric Psychiatric: appropriate mood/affect, intact judgment & insight - Neurologic Neurologic: CNII-XII intact, moves all extremities Plan Activity: no restrictions Diet: low salt Follow up with: NEERAJ BEE MD [Primary Care Provider] - 7 Days
== END 2022-04-12 17:58 | disposition home or self-care (01) | DRG 177 ==
LOC: ED 10:44 → 3A 14:51
PROVIDERS: ADMIT Internal Medicine; ATTEND Internal Medicine
DX: J69.0 Pneumonitis due to inhalation of food and vomit (principal); J96.01 Acute respiratory failure with hypoxia; I69.354 Hemiplegia and hemiparesis following cerebral infarction affecting left non-dominant side; Z20.822 Contact with and (suspected) exposure to COVID-19; E87.6 Hypokalemia; E83.42 Hypomagnesemia; I10 Essential (primary) hypertension; I25.10 Atherosclerotic heart disease of native coronary artery without angina pectoris; Z98.61 Coronary angioplasty status; M19.90 Unspecified osteoarthritis, unspecified site; G89.29 Other chronic pain; M54.9 Dorsalgia, unspecified; Z79.899 Other long term (current) drug therapy; E78.2 Mixed hyperlipidemia
CPT/HCPCS: 36415; 71045; 71275; 80053; 83735; 84484; 85025; 85379; 85610; 85730; 87040; 93005; 94640; 94760; 99285; G0378; J3490; J0456; J0696; J2930; J3475; J7030; Q9967; U0003